=== PATIENT | male | born 1940 | race African-American/Black ===

== ENCOUNTER 2019-12-28 20:58 | Inpatient (IN) | payer MEDICARE, MEDICAID ==
[~2019-12-28] VITALS: Ht 175.3 cm; Wt 98.0 kg
[2019-12-28 21:00] VITALS: BP 178/100
--- NOTE | 2019-12-28 21:00 | NUR ---
ED Nurse Note: Pt brought into ED by [facility] unit 240 from [facility] for c/o increased lethargy. Per EMS, pt has been more lethargic than normal and this was noticed by staff yesterday. Pt is awake and alert, slow to speak but able to answer simple questions. Pt is tachypneic at this time with respirations in the 30's. Pt is on 4L oxygen via NC. Pt is hot to the touch and fever noted upon triage. Productive cough also noted upon triage. Pt connected to vehicle monitor technician, ERMD bedside. Safety measures in place, will continue to monitor.
[2019-12-28] MEDS ORDERED: ACETAMINOPHEN500 M5 ORAL (21:07)
[2019-12-28] MEDS ORDERED: ASPIR 8181 MG ORAL (21:08)
[2019-12-28] MEDS ORDERED: ARTIFICIAL TEAR15 ML BOTH EYES (21:08)
[2019-12-28] MEDS ORDERED: CATAPRES0.1 MG ORAL (21:10)
[2019-12-28] MEDS ORDERED: DIGOXIN0.125 MG/2 ORAL (21:10)
[2019-12-28] MEDS ORDERED: CARDIZEM60 MG ORAL (21:11)
[2019-12-28] MEDS ORDERED: DOCUSATE SODIU100 MG ORAL (21:14)
[2019-12-28] MEDS ORDERED: DULCOLAX10 MG RC (21:14)
[2019-12-28] MEDS ORDERED: Vancomycin 1 GM in NS 275 ML IV ONE (21:15)
[2019-12-28] MEDS ORDERED: Azithromycin 500 MG in D5W 275 ML IVPB ONE (21:15)
[2019-12-28] MEDS ORDERED: cefTRIAXone 2 GM in NS 110 ML IV ONE (21:15)
[2019-12-28] MEDS ORDERED: ISOSORBIDE DINI30 MG ORAL (21:16)
[2019-12-28] MEDS ORDERED: HYDRALAZINE HCL25 M1 ORAL (21:16)
[2019-12-28] MEDS ORDERED: LIPITOR20 MG ORAL (21:17)
[2019-12-28] MEDS ORDERED: MINERAL OIL EN133 ML RC (21:18)
[2019-12-28] MEDS ORDERED: MULTIVITAMINS1 EAC8 ORAL (21:19)
[2019-12-28] MEDS ORDERED: PRO-STAT LIQUID30 ML ORAL (21:20)
[2019-12-28] MEDS ORDERED: PERIDEX15 ML MM (21:20)
[2019-12-28] MEDS ORDERED: SORBITOL2000 ML ORAL (21:21)
--- NOTE | 2019-12-28 21:30 | NUR ---
ED Nurse Note: IV line established, blood drawn and sent to lab. Urine also obtained and sent to lab.
[2019-12-28 21:45] VITALS: BP 160/88
--- NOTE | 2019-12-28 21:45 | NUR ---
ED Nurse Note: Rectal temp of 104.1 noted, ERMD aware. Will carry out order for tylenol.
[2019-12-28] MEDS ORDERED: Acetaminophen 650 MG SUPP RECTAL ONE (22:00)
--- NOTE | 2019-12-28 22:09 | Emergency Room Report ---
History of Present Illness General Chief Complaint: Altered Mental Status Source: Patient, EMS Present Illness HPI Patient presents from [facility] facility with a cough and shortness of breath. He has a history of COPD and pneumonia in the past. He denies any chest pain but says he is short of breath. He was transported by S. The patient is on oxygen at this time. He denies having cough but is heard to be coughing. He has had some chills according to him. There is no documented fever. The patient's had admissions in the past for pneumonia and COPD. Unknown of his COVID-19 status at this time. No chills, sore throat, chest pain, palpitations, nausea, vomiting, diarrhea, dysuria, abdominal pain, joint pain, rashes, visual changes, dizziness, headache. Allergies: Coded Allergies: No Known Allergies (Unverified , 12/28/19) COVID-19 Screening Contact w/high risk pt: Yes Recent Travel to affected area: No Experienced COVID-19 symptoms?: Yes COVID-19 symptoms experienced: Fever (T>100.4F or >38C), Cough COVID-19 Testing performed CO FOUNDER AND DIRECTOR: No COVID-19 Screening: PUI COVID-19 Patient History Past Medical History: see triage record Social History: Denies: smoking - prior Social History Narrative [facility] Reviewed Nursing Documentation: PMH: Agreed; PSxH: Agreed Nursing Documentation-PMH Hx Hypertension: Yes - HDL, dysphagia Hx Cerebrovascular Accident: Yes - Rt side weakness Review of Systems All Other Systems: negative except mentioned in HPI Physical Exam Vital Signs Date Time Temp Pulse Resp B/P (MAP) Pulse Ox O2 Delivery O2 Flow Rate FiO2 12/28/19 20:59 90 40 178/100 (126) 97 Nasal Cannula 4.0 Sp02 EP Interpretation: reviewed, abnormal - Interpreted as low by me General Appearance: alert, Chronically Ill Eyes: bilateral eye normal inspection, bilateral eye PERRL, bilateral eye other - Bilaterally ENT: moist mucus membranes Neck: supple Respiratory: no respiratory distress, rhonchi, other - Tachypnea Cardiovascular #1: regular rate, rhythm, no edema Cardiovascular #2: 2+ radial (L) Gastrointestinal: non tender, soft Genitourinary: no CVA tenderness Musculoskeletal: decreased range of motion - Right hand, swelling - Bilateral feet, other - Right hand contractures Neurologic: alert, motor weakness, Babinski - Right hemiparesis hemiparesis bilateral Psychiatric: mood/affect normal Skin: no rash Medical Decision Making Diagnostic Impression: Primary Impression: Right lower lobe pneumonia Qualified Codes: J18.9 - Pneumonia, unspecified organism Additional Impressions: Suspected COVID-19 virus infection Hypoxia Renal insufficiency NSTEMI (non-ST elevated myocardial infarction) ER Course Patient presents with fever, cough and tachypnea. Differential includes COVID- 19, pneumonia, exacerbation COPD, acute myocardial infarction amongst others. Evaluation with EKG, chest x-ray and labs including septic work-up. Treatment with IV hydration, oxygen. Respiratory isolation instituted. EKG with LVH and QT prolongation. Chest x-ray right lower lobe infiltrate. White count normal. Left shift. Renal insufficiency. Elevated CRP, ferritin, LDH. Normal lactic acid Based on chest x-ray antibiotics (triple) begun. Tylenol administered for fever. Chest x-ray more consistent with lobar pneumonia. However concern over elevated ferritin, CRP and LDH which suggest possible COVID-19. Patient improved on oxygen and with IV hydration. Discussed with Dr. eMjia, [place], states does not want patient transferred. Contact Dr. Gutierrez and Dr. Tao for admission. Troponin not discussed with ER physician. Patient improved and admitted to the hospital. Laboratory Tests Test 12/28/19 21:25 12/28/19 21:40 White Blood Count 6.3 K/UL (4.8-10.8) Red Blood Count 4.26 M/UL (4.70-6.10) L Hemoglobin 13.6 G/DL (14.2-18.0) L Hematocrit 42.1 % (42.0-52.0) Mean Corpuscular Volume 99 FL (80-99) Mean Corpuscular Hemoglobin 31.9 PG (27.0-31.0) H Mean Corpuscular Hemoglobin Concent 32.3 G/DL (32.0-36.0) Red Cell Distribution Width 12.6 % (11.6-14.8) Platelet Count 124 K/UL (150-450) L Mean Platelet Volume 7.8 FL (6.5-10.1) Neutrophils (%) (Auto) 81.5 % (45.0-75.0) H Lymphocytes (%) (Auto) 10.3 % (20.0-45.0) L Monocytes (%) (Auto) 7.7 % (1.0-10.0) Eosinophils (%) (Auto) 0.0 % (0.0-3.0) Basophils (%) (Auto) 0.6 % (0.0-2.0) Prothrombin Time 12.7 SEC (9.30-11.50) H Prothrombin Time INR 1.2 (0.9-1.1) H Activated Partial Thromboplast Time 36 SEC (23-33) H D-Dimer 2.57 mg/L FEU (0.00-0.49) H Sodium Level 146 MMOL/L (136-145) H Potassium Level 3.9 MMOL/L (3.5-5.1) Chloride Level 108 MMOL/L (98-107) H Carbon Dioxide Level 25 MMOL/L (21-32) Anion Gap 13 mmol/L (5-15) Blood Urea Nitrogen 48 mg/dL (7-18) H Creatinine 2.0 MG/DL (0.55-1.30) H Estimated Glomerular Filtration Rate 39.1 mL/min (>60) Glucose Level 100 MG/DL (74-106) Lactic Acid Level 0.90 mmol/L (0.4-2.0) Calcium Level 8.6 MG/DL (8.5-10.1) Magnesium Level 2.2 MG/DL (1.8-2.4) Ferritin 1398 NG/ML (8-388) H Total Bilirubin 1.9 MG/DL (0.2-1.0) H Direct Bilirubin 1.1 MG/DL (0.0-0.3) H Aspartate Amino Transferase (AST) 60 U/L (15-37) H Alanine Aminotransferase (ALT) 50 U/L (12-78) Alkaline Phosphatase 106 U/L (46-116) Lactate Dehydrogenase 458 U/L (81-234) H Total Creatine Kinase 139 U/L (26-308) Troponin I 0.151 ng/mL (0.000-0.056) C-Reactive Protein, Quantitative 27.8 mg/dL (0.00-0.90) H Pro-B-Type Natriuretic Peptide 4086 pg/mL (0-125) H Total Protein 7.5 G/DL (6.4-8.2) Albumin 2.8 G/DL (3.4-5.0) L Globulin 4.7 g/dL Albumin/Globulin Ratio 0.6 (1.0-2.7) L Lipase 256 U/L (73-393) Urine Color Yellow Urine Appearance Cloudy Urine pH 5 (4.5-8.0) Urine Specific [place] 1.015 (1.005-1.035) Urine Protein 3+ (NEGATIVE) H Urine Glucose (UA) Negative (NEGATIVE) Urine Ketones Negative (NEGATIVE) Urine Blood 3+ (NEGATIVE) H Urine Nitrite Negative (NEGATIVE) Urine Bilirubin Negative (NEGATIVE) Urine Urobilinogen 1 MG/DL (0.0-1.0) H Urine Leukocyte Esterase 2+ (NEGATIVE) H Urine RBC 40-60 /HPF (0 - 0) H Urine WBC 30-40 /HPF (0 - 0) H Urine Squamous Epithelial Cells Few /LPF (NONE/OCC) Urine Amorphous Sediment Many /LPF (NONE) H Urine Bacteria Many /HPF (NONE) H EKG Diagnostic Results Rate: normal Rhythm: NSR ST Segments: no acute changes - LVH and QT prolongation Rhythm Strip Diag. Results EP Interpretation: yes Rhythm: NSR, no PVC's, no ectopy Chest X-Ray Diagnostic Results Chest X-Ray Diagnostic Results : Chest X-Ray Ordered: Yes # of Views/Limited/Complete: 1 View Indication: Shortness of Breath EP Interpretation: Yes Interpretation: no effusion, no pneumothorax, other - CXR Impression: Other Electronically Signed by: Electronically signed by Andre Torres MD Last Vital Signs Date Time Temp Pulse Resp B/P (MAP) Pulse Ox O2 Delivery O2 Flow Rate FiO2 12/29/19 00:30 102.1 78 27 146/74 99 Nasal Cannula 4.0 Status: improved Disposition: ADMITTED INPATIENT Condition: Serious Referrals: Davon Tao DO (PCP) Andre Torres MD December 28, 2019 22:09
--- NOTE | 2019-12-28 22:45 | Diagnostic Imaging Report ---
EXAM: XR Chest, 1 View CLINICAL HISTORY: COUGH TECHNIQUE: Frontal view of the chest. COMPARISON: No relevant prior studies available. FINDINGS: Lungs: There is consolidation involving the right lower lung consistent with pneumonia. Linear atelectasis is identified at the left lung base. Pleural space: Unremarkable. No pneumothorax. Heart: Cardiac size is enlarged. Mediastinum: Unremarkable. Bones/joints: There are degenerative arthritic changes of the right shoulder joint. Vasculature: The thoracic aorta is calcified and ectatic. IMPRESSION: 1. Right lower lung pneumonia. 2. Cardiomegaly.
[2019-12-28 22:46] LABS: APPEARANCE,URINE CLOUDY; BILIRUBIN, URINE NEGATIVE (NEGATIVE); GLUCOSE, URINE (UA) NEGATIVE (NEGATIVE); KETONES,URINE NEGATIVE (NEGATIVE); LEUKOCYTE ESTERASE ,URINE 2+ (NEGATIVE); NITRITE,URINE NEGATIVE (NEGATIVE); PH,URINE 5 (4.5-8.0); PROTEIN,URINE 3+ (NEGATIVE); UROBILINOGEN,URINE 1 MG/DL (0.0-1.0)
[2019-12-28 22:49] LABS: INR 1.2 (0.9-1.1)
[2019-12-28 22:50] LABS: BASOPHILS % (AUTO) 0.6 % (0.0-2.0); HEMATOCRIT 42.1 % (42.0-52.0); HEMOGLOBIN 13.6 G/DL (14.2-18.0); LYMPHOCYTES % (AUTO) 10.3 % (20.0-45.0); MEAN CORPUSCULAR VOLUME 99 FL (80-99); MONOCYTES % (AUTO) 7.7 % (1.0-10.0); NEUTROPHILS % (AUTO) 81.5 % (45.0-75.0); PLATELET COUNT 124 K/UL (150-450); RED BLOOD COUNT 4.26 M/UL (4.70-6.10); RED CELL DISTRIBUTION WIDTH 12.6 % (11.6-14.8); WHITE BLOOD COUNT 6.3 K/UL (4.8-10.8)
[2019-12-28 22:56] LABS: ANION GAP 13 mmol/L (5-15); BLOOD UREA NITROGEN 48 mg/dL (7-18); CALCIUM 8.6 MG/DL (8.5-10.1); CARBON DIOXIDE 25 MMOL/L (21-32); CHLORIDE 108 MMOL/L (98-107); POTASSIUM 3.9 MMOL/L (3.5-5.1); SODIUM 146 MMOL/L (136-145)
--- NOTE | 2019-12-28 23:00 | NUR ---
ED Nurse Note: Pt is sleeping in bed at this time. No acute distress. Pt respirations have decreased to 24.
[2019-12-28 23:05] LABS: COLOR,URINE YELLOW
[2019-12-28 23:19] LABS: ALANINE AMINOTRANSFERASE 50 U/L (12-78); ALBUMIN 2.8 G/DL (3.4-5.0); ALBUMIN/GLOBULIN RATIO 0.6 (1.0-2.7); ALKALINE PHOSPHATASE 106 U/L (46-116); ASPARTATE AMINO TRANSFERASE 60 U/L (15-37); BILIRUBIN,TOTAL 1.9 MG/DL (0.2-1.0); CREATINE KINASE 139 U/L (26-308)
[2019-12-28 23:23] LABS: BILIRUBIN,DIRECT 1.1 MG/DL (0.0-0.3)
[2019-12-29] VITALS (7 sets, daily range): BP systolic 149–157; BP diastolic 68–86
--- NOTE | 2019-12-29 | NUR ---
ED Nurse Note: Report given to MALACHI Bishop.
--- NOTE | 2019-12-29 00:30 | NUR ---
ED Nurse Note: Pt is stable for transport to tele unit at this time per ERMD. Pt is awake and alert, NAD. Pt remains on 4L oxygen via NC. Endorsed plan to receiving RN that azithromycin is infusing via IV. IV is patent and intact. Pt has no belongings. Pt taken to unit via gurney, connected to surveillance system monitor by levi and RN. Pt vitals are stable.
--- NOTE | 2019-12-29 00:45 | NUR ---
NURSE NOTES: Received report from MALACHI Levi. Patient transferred from E. via [facility] to room 216-2 on Covid precaution. Patient is awake, alert and oriented x 2. Oriented to room and telemetry unit. On nasal cannula @ 4Lpm with no shortness or difficulty of breathing reported, saturating 94%. On low sodium diet. radiation monitor is in placed, shows Atrial fibrillation. Patient is bedbound. IV site is on left forearm g-20 saline lock that is patent and intact. Safety measures are in placed, bed in lowest and lock position. Side rails up x 2. Will continue plan of care,
[2019-12-29] MEDS: D5 1/2NS w/KCl 20mEq 1,000 ML IV SCH ×2 (03:35→14:24)
[2019-12-29] MEDS ORDERED: Fleet's Mineral Oil Enema RECTAL PRN (05:58)
[2019-12-29] MEDS ORDERED: Sorbitol 2000ml Irrigation IRRIG SCH (06:00)
[2019-12-29] MEDS: HydrALAZINE 25mg tab ORAL SCH ×3 (06:23→23:28)
[2019-12-29] MEDS ORDERED: Albuterol 90mcg Inhaler 8gm INH PRN (07:30)
--- NOTE | 2019-12-29 07:35 | Consultation ---
History of Present Illness General Date patient seen: December 29, 2019 Time patient seen: 06:30 Chief Complaint: Altered Mental Status Referring physician: Dr Gutierrez Reason for Consultation: PNA Present Illness HPI 79 years old male, [facility], with past medical history of COPD, hypertension, CVA with right-sided hemiparesis, prior pneumonia , DNR/DNI status, was sent for evaluation due to shortness of breath, cough and chills. No fever was reported. Upon evaluation patient was febrile with temperature 102 and hypoxic requiring high flow of supplemental oxygen. Blood pressure was elevated 178/100, and patient was tachypneic with respiratory rate of 40. Laboratory work-up revealed no leukocytosis, stable hemoglobin and hematocrit. Platelet count 124. Troponin elevated 0.151. pro BNP 4086. EKG revealed sinus rhythm, no acute ischemic changes. Lactic acid 0.9. BUN 42, creatinine 2.0. Sodium 146. Total bilirubin 1.9, direct bilirubin 1.1. AST 60. Urinalysis revealed pyuria, many bacteria, +3 protein, +2 leukocyte esterase. Noted elevated CRP 27.8 , LDH 458, ferritin 1398, d-dimer 2.57 , thus all inflammatory markers elevated suggestive of possible cytokine storm. Patient was tested for COVID-19. Chest x-ray demonstrated right lower lung pneumonia. Cardiomegaly. In emergency department patient pancultured ,started on empiric antibiotics, received analgesic for fever. Patient subsequently admitted to telemetry floor to isolation room for further management. Allergies: Coded Allergies: No Known Allergies (Unverified , 12/28/19) Medication History Scheduled Acetaminophen (Acetaminophen), 325 MG ORAL Q4H, (Reported) Amino Acids/Protein Hydrolys (Pro-Stat Liquid), 30 ML ORAL TWICE A DAY, ( Reported) Aspirin* (Aspir 81*), 81 MG ORAL DAILY, (Reported) Atorvastatin Calcium* (Lipitor*), 20 MG ORAL BEDTIME, (Reported) Clonidine Hcl* (Catapres*), 0.1 MG ORAL EVERY 4 HOURS, (Reported) Digoxin* (Digoxin*), 0.125 MG ORAL DAILY, (Reported) Diltiazem Hcl* (Cardizem*), 180 MG ORAL DAILY, (Reported) Docusate Sodium* (Docusate Sodium*), 250 MG ORAL TWICE A DAY, (Reported) Hydralazine Hcl* (Hydralazine Hcl*), 25 MG ORAL EVERY 8 HOURS, (Reported) Isosorbide Dinitrate* (Isordil*), 30 MG ORAL EVERY 6 HOURS, (Reported) Multivitamin With Minerals (Multivitamins With Minerals*), 1 TAB ORAL DAILY, ( Reported) Sorbitol Solution (Sorbitol), 30 ML ORAL EVERY 6 HOURS, (Reported) Miscellaneous Medications Bisacodyl (Dulcolax), 10 MG RC, (Reported) Chlorhexidine Gluconate (Peridex), 10 ML MM, (Reported) Dextran 70/Hypromellose (Artificial Tears Eye Drops*), 1 DROP BOTH EYES, ( Reported) Mineral Oil (Mineral Oil Enema), 133 ML RC, (Reported) Patient History History Provided By: Patient, Medical Record Healthcare decision maker Resuscitation status Advanced Directive on File Review of Systems Constitutional: Reports: weakness Respiratory: Reports: see HPI, cough Cardiovascular: Reports: no symptoms Musculoskeletal: Reports: joint pain Neurological: Reports: other - hx of CVA ROS Narrative ROS limited due to patient medical conditiion Physical Exam General Appearance: no apparent distress, other - awake, somewhat responsive AA male in NAD Lines, tubes and drains: peripheral HEENT: normocephalic, atraumatic, anicteric, mucous membranes moist Neck: supple Respiratory/Chest: no accessory muscle use, rhonchi - left - few, rhonchi - right - diffused Cardiovascular/Chest: normal rate Abdomen: normal bowel sounds, non tender, soft Extremities: no calf tenderness, no edema Neurologic: abnormal gait, alert - somewhat responsive, , other - R side weakness Musculoskeletal: atrophy - BLE Last 24 Hour Vital Signs Date Time Temp Pulse Resp B/P (MAP) Pulse Ox O2 Delivery O2 Flow Rate FiO2 12/29/19 06:23 158/85 12/29/19 06:23 158/88 12/29/19 04:00 99.1 74 21 151/82 (105) 95 12/29/19 00:45 99.5 71 22 157/86 (109) 94 12/29/19 00:30 102.1 78 27 146/74 99 Nasal Cannula 4.0 12/29/19 00:15 Nasal Cannula 4.0 12/29/19 00:00 102.1 75 25 151/68 100 Nasal Cannula 4.0 12/28/19 22:22 102.1 12/28/19 21:45 104.1 80 32 160/88 97 Nasal Cannula 4.0 12/28/19 21:00 90 40 Nasal Cannula 4.0 12/28/19 21:00 102.0 90 40 178/100 97 Nasal Cannula 4.0 12/28/19 20:59 90 40 178/100 (126) 97 Nasal Cannula 4.0 Intake and Output 12/28/19 12/29/19 19:00 07:00 Intake Total 0 ml Output Total 100 ml Balance -100 ml Intake Oral 0 ml Output Urine Total 100 ml Laboratory Tests Test 12/28/19 21:25 12/28/19 21:40 White Blood Count 6.3 K/UL (4.8-10.8) Red Blood Count 4.26 M/UL (4.70-6.10) L Hemoglobin 13.6 G/DL (14.2-18.0) L Hematocrit 42.1 % (42.0-52.0) Mean Corpuscular Volume 99 FL (80-99) Mean Corpuscular Hemoglobin 31.9 PG (27.0-31.0) H Mean Corpuscular Hemoglobin Concent 32.3 G/DL (32.0-36.0) Red Cell Distribution Width 12.6 % (11.6-14.8) Platelet Count 124 K/UL (150-450) L Mean Platelet Volume 7.8 FL (6.5-10.1) Neutrophils (%) (Auto) 81.5 % (45.0-75.0) H Lymphocytes (%) (Auto) 10.3 % (20.0-45.0) L Monocytes (%) (Auto) 7.7 % (1.0-10.0) Eosinophils (%) (Auto) 0.0 % (0.0-3.0) Basophils (%) (Auto) 0.6 % (0.0-2.0) Prothrombin Time 12.7 SEC (9.30-11.50) H Prothromb Time International Ratio 1.2 (0.9-1.1) H Activated Partial Thromboplast Time 36 SEC (23-33) H D-Dimer 2.57 mg/L FEU (0.00-0.49) H Sodium Level 146 MMOL/L (136-145) H Potassium Level 3.9 MMOL/L (3.5-5.1) Chloride Level 108 MMOL/L (98-107) H Carbon Dioxide Level 25 MMOL/L (21-32) Anion Gap 13 mmol/L (5-15) Blood Urea Nitrogen 48 mg/dL (7-18) H Creatinine 2.0 MG/DL (0.55-1.30) H Estimat Glomerular Filtration Rate 39.1 mL/min (>60) Glucose Level 100 MG/DL (74-106) Lactic Acid Level 0.90 mmol/L (0.4-2.0) Calcium Level 8.6 MG/DL (8.5-10.1) Magnesium Level 2.2 MG/DL (1.8-2.4) Ferritin 1398 NG/ML (8-388) H Total Bilirubin 1.9 MG/DL (0.2-1.0) H Direct Bilirubin 1.1 MG/DL (0.0-0.3) H Aspartate Amino Transf (AST/SGOT) 60 U/L (15-37) H Alanine Aminotransferase (ALT/SGPT) 50 U/L (12-78) Alkaline Phosphatase 106 U/L (46-116) Lactate Dehydrogenase 458 U/L (81-234) H Total Creatine Kinase 139 U/L (26-308) Troponin I 0.151 ng/mL (0.000-0.056) C-Reactive Protein, Quantitative 27.8 mg/dL (0.00-0.90) H Pro-B-Type Natriuretic Peptide 4086 pg/mL (0-125) H Total Protein 7.5 G/DL (6.4-8.2) Albumin 2.8 G/DL (3.4-5.0) L Globulin 4.7 g/dL Albumin/Globulin Ratio 0.6 (1.0-2.7) L Lipase 256 U/L (73-393) Urine Color Yellow Urine Appearance Cloudy Urine pH 5 (4.5-8.0) Urine Specific [place] 1.015 (1.005-1.035) Urine Protein 3+ (NEGATIVE) H Urine Glucose (UA) Negative (NEGATIVE) Urine Ketones Negative (NEGATIVE) Urine Blood 3+ (NEGATIVE) H Urine Nitrite Negative (NEGATIVE) Urine Bilirubin Negative (NEGATIVE) Urine Urobilinogen 1 MG/DL (0.0-1.0) H Urine Leukocyte Esterase 2+ (NEGATIVE) H Urine RBC 40-60 /HPF (0 - 0) H Urine WBC 30-40 /HPF (0 - 0) H Urine Squamous Epithelial Cells Few /LPF (NONE/OCC) Urine Amorphous Sediment Many /LPF (NONE) H Urine Bacteria Many /HPF (NONE) H Height (Feet): 5 Height (Inches): 9.00 Weight (Pounds): 160 Medications Current Medications Medications (Trade) Dose Ordered Sig/Grayson Route PRN Reason Start Time Stop Time Status Last Admin Dose Admin Acetaminophen (Tylenol) 325 mg Q4H ORAL 12/29/19 00:15 01/28/20 00:14 UNV Artificial Tears (Akwa-Tears) 1 drop BID BOTH EYES 12/29/19 09:00 01/28/20 08:59 Aspirin (Ecotrin) 81 mg DAILY ORAL 12/29/19 09:00 02/12/20 08:59 Atorvastatin Calcium (Lipitor) 20 mg BEDTIME ORAL 12/29/19 21:00 03/28/20 20:59 Azithromycin 500 mg/Dextrose 275 ml @ 275 mls/hr Q24H IV 12/30/19 00:00 01/05/20 00:59 Bisacodyl (Dulcolax) 10 mg PRN RECTAL 12/29/19 00:15 03/28/20 00:14 Cefepime HCl 1 gm/ Dextrose 50 ml @ 100 mls/hr EVERY 12 HOURS IVPB 12/29/19 09:00 01/05/20 08:59 Clonidine HCl (Catapres Tab) 0.1 mg EVERY 4 HOURS ORAL 12/29/19 01:00 03/28/20 00:59 UNV Dextrose (Dextrose 50%) 25 ml Q30M PRN IV Hypoglycemia 12/29/19 00:15 03/28/20 00:14 Dextrose (Dextrose 50%) 50 ml Q30M PRN IV Hypoglycemia 12/29/19 00:15 03/28/20 00:14 Dextrose/ Electrolytes 1,000 ml @ 75 mls/hr [id number] IV 12/29/19 01:00 01/28/20 00:59 12/29/19 03:35 Digoxin (Lanoxin) 0.125 mg DAILY ORAL 12/29/19 09:00 03/28/20 08:59 Diltiazem HCl (Cardizem CD) 180 mg DAILY ORAL 12/29/19 09:00 01/28/20 08:59 Docusate Sodium (Colace) 250 mg TWICE A DAY ORAL 12/29/19 09:00 01/28/20 08:59 Enoxaparin Sodium (Lovenox) 30 mg DAILY SUBQ 12/29/19 09:00 03/28/20 08:59 Hydralazine HCl (Apresoline) 25 mg EVERY 8 HOURS ORAL 12/29/19 06:00 03/28/20 05:59 12/29/19 06:23 Isosorbide Dinitrate (Isordil) 10 mg Q6HR ORAL 12/29/19 06:00 01/28/20 05:59 12/29/19 06:23 Mineral Oil (Fleet's Mineral Oil Enema) 133 ml DAILYPRN PRN RECTAL CONSTIPATION 12/29/19 05:58 01/28/20 05:57 Multivitamins Therapeutic (Therapeutic Multivitamin) 1 ea DAILY ORAL 12/29/19 09:00 01/28/20 08:59 Sorbitol (sorbitoL) 30 ml EVERY 6 HOURS ORAL 12/29/19 12:00 01/28/20 11:59 Assessment/Plan Assessment/Plan: ASSESSMENT sepsis acute hypoxemic resp failure ( requiring high flow of O2 and manifested with tachypnea) PNA suspected CoVID 19 nfection elevated troponin, possible NSTEMI possible CHF HTN urgency, on admission ESTHER vs CKD transaminitis PLAN OF CARE tele isolation 02 titrate to keep sat abvoe 92% MDI Proventil prn until known CoVID result empiric abx SCX if able fup with CXR DVT prophylaxis fup with SARS-CoV2 by PCR noted elevated CRP, D dimer, ferritin, LDH, trend further repeat troponin ECHO Venous Duplex BLE resume home emds , including ASA and sttin continue Hydralazine, Digoxin and Isordil for CHF, monitor volumes hydration, monitor e/lytes, renal parameters, avoid nephrotoxics BP management with current regimen and optimize further as needed fup with LFT case discussed and evaluated by supervising physician Kaitlyn Jeronimo NP December 29, 2019 07:35
--- NOTE | 2019-12-29 07:54 | NUR ---
HAND-OFF: Report given to MALACHI Madrid. Patient is asleep, on stable condition. Plan of care endorsed.
--- NOTE | 2019-12-29 08:05 | NUR ---
NURSE NOTES: Received report from MALACHI Allison. Pt awake, A/O x2, no s/sx of acute distress. Pt on 4L NC, breathing even, with barking cough observed. Pt denies any pain. IV site on L FA patent and asymptomatic, running IVF as ordered. Bed on lowest position, call light within reach. Will continue plan of care.
--- NOTE | 2019-12-29 08:30 | NUR ---
NURSE NOTES: Asked LIZBETH Jeronimo if it is okay to administer Lovenox because of low platelet count of 124. Per LIZBETH Jeronimo, it is okay to administer.
[2019-12-29] MEDS ORDERED: Enoxaparin 30mg Inj SUBQ SCH (09:00)
[2019-12-29] MEDS: Docusate 250mg cap ORAL SCH ×2 (09:19→17:35)
[2019-12-29] MEDS: dilTIAZem HCl CD 180mg cap ORAL SCH (09:19)
[2019-12-29] MEDS: Digoxin 0.125mg tab ORAL SCH (09:19)
[2019-12-29] MEDS: Multivitamin w/Minerals tab ORAL SCH (09:19)
[2019-12-29] MEDS: Aspirin EC 81mg tab ORAL SCH (09:19)
--- NOTE | 2019-12-29 11:00 | Consultation ---
Consult Note Consult Note I am asked to evaluate the the patient at the request of Dr. Gutierrez for renal failure Patient presents from [facility] facility with a cough and shortness of breath. He has a history of COPD and pneumonia in the past. He denies any chest pain but says he is short of breath. He was transported by S. The patient is on oxygen at this time. He denies having cough but is heard to be coughing. He has had some chills according to him. There is no documented fever. The patient's had admissions in the past for pneumonia and COPD. Unknown of his COVID-19 status at this time. No chills, sore throat, chest pain, palpitations, nausea, vomiting, diarrhea, dysuria, abdominal pain, joint pain, rashes, visual changes, dizziness, headache. 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: No COVID-19 Screening: PUI COVID-19 Hx Hypertension: Yes - HDL, dysphagia Hx Cerebrovascular Accident: Yes - Rt side weakness Patient seen, examined Data reviewed No prior hospitalization here at [facility] Assessment/Plan Acute renal failure most likely superimposed on underlying chronic kidney disease Acute hypoxic respiratory failure, pneumonia, suspected COVID-19 Sepsis Elevated troponin Suspected congestive heart failure Hypertension, hypertension urgency on admission Evidence of UTI Suggestions: Slow hydration Watch for CHF symptoms Pulmonary toilet Antibiotics Urine studies Keep the blood pressure and blood sugar in check Monitor renal parameters Per orders Per consultants Daon Harry MD December 29, 2019 11:00
[2019-12-29 11:17] LABS: BASOPHILS % (AUTO) 0.4 % (0.0-2.0); HEMATOCRIT 42.6 % (42.0-52.0); HEMOGLOBIN 14.8 G/DL (14.2-18.0); LYMPHOCYTES % (AUTO) 9.2 % (20.0-45.0); MEAN CORPUSCULAR VOLUME 92 FL (80-99); MONOCYTES % (AUTO) 6.6 % (1.0-10.0); NEUTROPHILS % (AUTO) 83.8 % (45.0-75.0); PLATELET COUNT 121 K/UL (150-450); RED BLOOD COUNT 4.62 M/UL (4.70-6.10); RED CELL DISTRIBUTION WIDTH 11.3 % (11.6-14.8); WHITE BLOOD COUNT 5.7 K/UL (4.8-10.8)
[2019-12-29 11:40] LABS: ALANINE AMINOTRANSFERASE 59 U/L (12-78); ALBUMIN 2.6 G/DL (3.4-5.0); ALBUMIN/GLOBULIN RATIO 0.6 (1.0-2.7); ALKALINE PHOSPHATASE 108 U/L (46-116); ANION GAP 12 mmol/L (5-15); ASPARTATE AMINO TRANSFERASE 80 U/L (15-37); BILIRUBIN,TOTAL 1.8 MG/DL (0.2-1.0); BLOOD UREA NITROGEN 46 mg/dL (7-18); CALCIUM 8.6 MG/DL (8.5-10.1); CARBON DIOXIDE 25 MMOL/L (21-32); CHLORIDE 110 MMOL/L (98-107); CREATININE 1.9 MG/DL (0.55-1.30); PHOSPHORUS 3.3 MG/DL (2.5-4.9); POTASSIUM 3.7 MMOL/L (3.5-5.1); SODIUM 147 MMOL/L (136-145)
[2019-12-29 11:41] LABS: BILIRUBIN,DIRECT 1.1 MG/DL (0.0-0.3)
--- NOTE | 2019-12-29 12:01 | NUR ---
NURSE NOTES: Reported troponin levels and BNP to Dr Del Rosario.
[2019-12-29] MEDS: Sorbitol Solution UD 30ml ORAL SCH ×2 (12:21→17:35)
--- NOTE | 2019-12-29 13:19 | History & Physical ---
History and Physical History & Physicial Scooter Gutierrez MD December 29, 2019 13:19
--- NOTE | 2019-12-29 14:08 | Cardiac Electrophysiology PN ---
Subjective Subjective [id number] Objective Last 24 Hour Vital Signs Date Time Temp Pulse Resp B/P (MAP) Pulse Ox O2 Delivery O2 Flow Rate FiO2 12/29/19 12:21 149/77 12/29/19 12:00 98.8 69 20 149/77 (101) 95 12/29/19 11:24 71 12/29/19 09:19 66 12/29/19 09:19 66 155/80 12/29/19 09:00 Nasal Cannula 4.0 12/29/19 08:00 98.9 66 22 155/80 (105) 94 12/29/19 07:55 74 12/29/19 06:23 158/85 12/29/19 06:23 158/88 12/29/19 04:00 99.1 74 21 151/82 (105) 95 12/29/19 00:45 99.5 71 22 157/86 (109) 94 12/29/19 00:30 102.1 78 27 146/74 99 Nasal Cannula 4.0 12/29/19 00:15 Nasal Cannula 4.0 12/29/19 00:00 102.1 75 25 151/68 100 Nasal Cannula 4.0 12/28/19 22:22 102.1 12/28/19 21:45 104.1 80 32 160/88 97 Nasal Cannula 4.0 12/28/19 21:00 90 40 Nasal Cannula 4.0 12/28/19 21:00 102.0 90 40 178/100 97 Nasal Cannula 4.0 12/28/19 20:59 90 40 178/100 (126) 97 Nasal Cannula 4.0 Intake and Output 12/28/19 12/29/19 19:00 07:00 Intake Total 0 ml Output Total 100 ml Balance -100 ml Intake Oral 0 ml Output Urine Total 100 ml Laboratory Tests Test 12/28/19 21:25 12/28/19 21:40 12/29/19 10:35 12/29/19 11:30 White Blood Count 6.3 K/UL (4.8-10.8) 5.7 K/UL (4.8-10.8) Red Blood Count 4.26 M/UL (4.70-6.10) L 4.62 M/UL (4.70-6.10) L Hemoglobin 13.6 G/DL (14.2-18.0) L 14.8 G/DL (14.2-18.0) Hematocrit 42.1 % (42.0-52.0) 42.6 % (42.0-52.0) Mean Corpuscular Volume 99 FL (80-99) 92 FL (80-99) Mean Corpuscular Hemoglobin 31.9 PG (27.0-31.0) H 32.0 PG (27.0-31.0) H Mean Corpuscular Hemoglobin Concent 32.3 G/DL (32.0-36.0) 34.7 G/DL (32.0-36.0) Red Cell Distribution Width 12.6 % (11.6-14.8) 11.3 % (11.6-14.8) L Platelet Count 124 K/UL (150-450) L 121 K/UL (150-450) L Mean Platelet Volume 7.8 FL (6.5-10.1) 6.3 FL (6.5-10.1) L Neutrophils (%) (Auto) 81.5 % (45.0-75.0) H 83.8 % (45.0-75.0) H Lymphocytes (%) (Auto) 10.3 % (20.0-45.0) L 9.2 % (20.0-45.0) L Monocytes (%) (Auto) 7.7 % (1.0-10.0) 6.6 % (1.0-10.0) Eosinophils (%) (Auto) 0.0 % (0.0-3.0) 0.0 % (0.0-3.0) Basophils (%) (Auto) 0.6 % (0.0-2.0) 0.4 % (0.0-2.0) Prothrombin Time 12.7 SEC (9.30-11.50) H Prothromb Time International Ratio 1.2 (0.9-1.1) H Activated Partial Thromboplast Time 36 SEC (23-33) H D-Dimer 2.57 mg/L FEU (0.00-0.49) H Sodium Level 146 MMOL/L (136-145) H 147 MMOL/L (136-145) H Potassium Level 3.9 MMOL/L (3.5-5.1) 3.7 MMOL/L (3.5-5.1) Chloride Level 108 MMOL/L (98-107) H 110 MMOL/L (98-107) H Carbon Dioxide Level 25 MMOL/L (21-32) 25 MMOL/L (21-32) Anion Gap 13 mmol/L (5-15) 12 mmol/L (5-15) Blood Urea Nitrogen 48 mg/dL (7-18) H 46 mg/dL (7-18) H Creatinine 2.0 MG/DL (0.55-1.30) H 1.9 MG/DL (0.55-1.30) H Estimat Glomerular Filtration Rate 39.1 mL/min (>60) 41.6 mL/min (>60) Glucose Level 100 MG/DL (74-106) 147 MG/DL (74-106) H Lactic Acid Level 0.90 mmol/L (0.4-2.0) Calcium Level 8.6 MG/DL (8.5-10.1) 8.6 MG/DL (8.5-10.1) Magnesium Level 2.2 MG/DL (1.8-2.4) 2.2 MG/DL (1.8-2.4) Ferritin 1398 NG/ML (8-388) H Total Bilirubin 1.9 MG/DL (0.2-1.0) H 1.8 MG/DL (0.2-1.0) H Direct Bilirubin 1.1 MG/DL (0.0-0.3) H 1.1 MG/DL (0.0-0.3) H Aspartate Amino Transf (AST/SGOT) 60 U/L (15-37) H 80 U/L (15-37) H Alanine Aminotransferase (ALT/SGPT) 50 U/L (12-78) 59 U/L (12-78) Alkaline Phosphatase 106 U/L (46-116) 108 U/L (46-116) Lactate Dehydrogenase 458 U/L (81-234) H Total Creatine Kinase 139 U/L (26-308) Troponin I 0.151 ng/mL (0.000-0.056) 0.180 ng/mL (0.000-0.056) C-Reactive Protein, Quantitative 27.8 mg/dL (0.00-0.90) H Pro-B-Type Natriuretic Peptide 4086 pg/mL (0-125) H Total Protein 7.5 G/DL (6.4-8.2) 7.2 G/DL (6.4-8.2) Albumin 2.8 G/DL (3.4-5.0) L 2.6 G/DL (3.4-5.0) L Globulin 4.7 g/dL 4.6 g/dL Albumin/Globulin Ratio 0.6 (1.0-2.7) L 0.6 (1.0-2.7) L Lipase 256 U/L (73-393) Urine Color Yellow Urine Appearance Cloudy Urine pH 5 (4.5-8.0) Urine Specific [place] 1.015 (1.005-1.035) Urine Protein 3+ (NEGATIVE) H Urine Glucose (UA) Negative (NEGATIVE) Urine Ketones Negative (NEGATIVE) Urine Blood 3+ (NEGATIVE) H Urine Nitrite Negative (NEGATIVE) Urine Bilirubin Negative (NEGATIVE) Urine Urobilinogen 1 MG/DL (0.0-1.0) H Urine Leukocyte Esterase 2+ (NEGATIVE) H Urine RBC 40-60 /HPF (0 - 0) H Urine WBC 30-40 /HPF (0 - 0) H Urine Squamous Epithelial Cells Few /LPF (NONE/OCC) Urine Amorphous Sediment Many /LPF (NONE) H Urine Bacteria Many /HPF (NONE) H Phosphorus Level 3.3 MG/DL (2.5-4.9) Digoxin Level 1.7 NG/ML (0.5-2.0) Urine Random Sodium < 20 mmol/L (20-110) L Microbiology Date/Time Source Procedure Growth Status 12/29/19 06:50 Rectum Received Francois Del Rosario MD December 29, 2019 14:08
--- NOTE | 2019-12-29 19:14 | History and Physical Report ---
DATE OF ADMISSION: 12/28/2019 CHIEF COMPLAINT: Shortness of breath. HISTORY OF PRESENT ILLNESS: This is a 79-year-old gentleman with past medical history significant for pneumonia, COPD, hypertension, dyslipidemia, prior history of stroke with right-sided hemiparesis who presented to the emergency department from nursing facility after he was noted to have shortness of breath. The patient was noted to have coughing and chills. No fever was reported. The patient after initial evaluation in the emergency department was admitted to the hospital with pneumonia, possible COVID-19 infection as well as COPD. PAST MEDICAL HISTORY/PAST SURGICAL HISTORY: Significant for hypertension, prior stroke with right-sided hemiparesis, dyslipidemia, COPD, history is very limited secondary to the patient's status. History mostly taken from the ER chart and group home documentation. MEDICATIONS: At the nursing facility is significant for acetaminophen, ProStat, aspirin, atorvastatin, clonidine, digoxin, diltiazem, docusate, hydralazine, isosorbide dinitrate, multivitamin, sorbitol. ALLERGIES: No known drug allergies. SOCIAL HISTORY: The patient is a group home resident. No smoking, alcohol, or drugs at this time. FAMILY HISTORY: Noncontributory. REVIEW OF SYSTEMS: Mostly as above. Denies any dysuria, frequency, hematuria. Denies any hemoptysis or hematochezia. Complained about shortness of breath and chills. Denies any loss of consciousness. Denies any fall or head trauma. PHYSICAL EXAMINATION: VITAL SIGNS: On admission from the emergency department temperature 98.9, pulse of 66, respirations 22, blood pressure 155/80. GENERAL: The patient awake, responsive, no acute distress. HEENT: Pupils are equal and reactive to light. Extraocular movements intact. Neck was supple. No JVD. LUNGS: Good air entry. No wheezing or rales. Decreased in bases. HEART: S1 and S2. Distant heart sounds. No murmur or gallops. ABDOMEN: Soft, nondistended, nontender. Positive bowel sounds. EXTREMITIES: No cyanosis, clubbing, edema. NEUROLOGIC: Cranial nerves II through XII grossly normal. The patient moving left side upper extremities and lower extremity. Right upper extremity contracture. Right lower extremity is decreased motor. LABORATORY AND DIAGNOSTIC DATA: On admission from the emergency department, WBC of 6.3, hemoglobin 13, hematocrit 42, and platelets is 124. Sodium 146, potassium 3.9, chloride 108, bicarbonate 25, BUN 48, creatinine 2.0, calcium is 8.6, GFR is 39, glucose is 100. Total bilirubin of 1.9, direct bilirubin of 1.1, AST of 60, ALT of 50. Troponin 0.151. ProBNP of 4086. Albumin is 2.8. Lipase is 256. Digoxin level is 1.7. Urine is +3 protein, +3 blood, +2 leukocytes, 40 to 60 rbc's, 30 to 40 wbc's, and many bacteria. PT of 12, INR 1.2, and PTT of 36. D-dimer is 2.57. WBC of 6.3, hemoglobin 13, hematocrit 42, and platelets is 124. Chest x-ray, right lower lobe pneumonia, cardiomegaly. ASSESSMENT: 1. Right lower lobe pneumonia. 2. Acute hypoxemic respiratory failure. 3. COVID-19 ruled out infection. 4. Acute kidney injury on chronic renal insufficiency. 5. Sepsis. 6. Hypertension. 7. Dyslipidemia. 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 9. Admit to telemetry on the COVID-19 isolation. We will follow up with COVID-19 cultures and follow up with urine culture and blood culture. Monitor laboratory, IV hydration, and start the patient on broad-spectrum antibiotic with azithromycin and cefepime. 10. DVT prophylaxis on Lovenox. 11. Code status is DNR. 12. We will follow up with Dr. Del Rosario from Cardiology Electrophysiology, Dr. Calero, Pulmonary Critical Care, Dr. Harry from Nephrology, and Dr. Mendosa from Infectious Diseases consultations. Scooter Gutierrez M.D. DR: Carmen JOB#: [id number] CC:
--- NOTE | 2019-12-29 19:45 | Consultation ---
DATE OF CONSULTATION: 12/29/2019 CARDIOLOGY CONSULTATION CONSULTING PHYSICIAN: Francois Del Rosario MD. REFERRING PHYSICIAN: Scooter Gutierrez MD. REASON FOR CONSULTATION: Accelerated hypertension, shortness of breath, and atrial fibrillation. HISTORY OF PRESENT ILLNESS: The patient is an 79-year-old gentleman with history of hypertension, COPD, and history of CVA in the past was brought by paramedics for cough and shortness of breath. The patient has history of COPD and pneumonia in the past. The patient also had some chills. The patient was admitted and be ruled out for COVID pneumonia. At the time of my evaluation, the patient is comfortable and is on oxygen. REVIEW OF SYSTEMS: Review of systems was negative other than what is mentioned in the history of present illness. PAST MEDICAL HISTORY: As mentioned above. FAMILY HISTORY: Noncontributory. SOCIAL HISTORY: There is no history of smoking or drug use. PHYSICAL EXAMINATION: VITAL SIGNS: Blood pressure is 149/77, pulse 70, respirations 18, and he is afebrile. HEAD AND NECK: Showed no JVD. LUNGS: Coarse rhonchi. CARDIOVASCULAR: Regular S1 and S2 with no gallop. ABDOMEN: Soft. EXTREMITIES: No pitting edema. LABORATORY DATA: Labs show white count 5.7, hemoglobin 14.9, hematocrit 42.6, and platelet count 121. Sodium 147, potassium 3.7, BUN of 43, creatinine 1.9, and glucose of 147. Troponin is 0.15 and 0.18. ASSESSMENT AND PLAN: 1. Non-ST elevation myocardial infarction by elevated troponin. However, this could be due to renal failure, creatinine is 2. The EKG showed atrial fibrillation, occasional PVC. The patient on aspirin and Lipitor, add metoprolol to his medical regimen. The patient is also on Imdur. Repeat EKG and echocardiogram for further evaluation. 2. Atrial fibrillation. The rate is currently controlled on Cardizem CD 180 mg daily. Currently, patient is only on aspirin and low-dose subcutaneous Lovenox. Most likely would need a full anticoagulation that would be discussed with Dr. Gutierrez. The patient is also on digoxin as well. 3. Hypertension, stable on our Cardizem. 4. COPD on albuterol. 5. Occasional PVCs. Echocardiogram shows ejection fraction of 65%. I will repeat troponin in the morning as well. 6. Rule out COVID pneumonia. 7. Renal failure, creatinine of 2. Thank you very much for allowing me to participate in the care of this patient. Please do not hesitate to contact me for any questions regarding my evaluation. Sincerely, Francois Del Rosario M.D. DR: Sofiya JOB#: [id number] CC:
[2019-12-29] MEDS: Azithromycin 500 MG in D5W 275 ML IV SCH (21:00)
[2019-12-29] MEDS: Atorvastatin 20mg tab ORAL SCH (23:29)
[2019-12-30] MEDS ORDERED: Azithromycin 500 MG in D5W 275 ML IV SCH ×2
[2019-12-30] MEDS: Sorbitol Solution UD 30ml ORAL SCH ×4 (01:01→17:13)
[2019-12-30] MEDS: D5 1/2NS w/KCl 20mEq 1,000 ML IV SCH ×2 (03:40→17:13)
[2019-12-30 04:00] VITALS: BP 161/89
[2019-12-30 06:54] LABS: BASOPHILS % (AUTO) 0.7 % (0.0-2.0); EOSINOPHILS % (AUTO) 0.1 % (0.0-3.0); HEMATOCRIT 42.3 % (42.0-52.0); HEMOGLOBIN 14.6 G/DL (14.2-18.0); LYMPHOCYTES % (AUTO) 11.4 % (20.0-45.0); MEAN CORPUSCULAR VOLUME 91 FL (80-99); MONOCYTES % (AUTO) 7.1 % (1.0-10.0); NEUTROPHILS % (AUTO) 80.7 % (45.0-75.0); PLATELET COUNT 121 K/UL (150-450); RED BLOOD COUNT 4.62 M/UL (4.70-6.10); RED CELL DISTRIBUTION WIDTH 11.3 % (11.6-14.8)
[2019-12-30] MEDS: HydrALAZINE 25mg tab ORAL SCH ×3 (07:21→21:44)
[2019-12-30 07:45] LABS: GAMMA GLUTAMYL TRANSPEPTIDASE 77 U/L (5-85); LACTATE DEHYDROGENASE 291 U/L (81-234)
[2019-12-30 08:00] VITALS: BP 165/81
[2019-12-30 08:00] LABS: ALANINE AMINOTRANSFERASE 59 U/L (12-78); ALBUMIN 2.4 G/DL (3.4-5.0); ALBUMIN/GLOBULIN RATIO 0.5 (1.0-2.7); ALKALINE PHOSPHATASE 111 U/L (46-116); ANION GAP 10 mmol/L (5-15); ASPARTATE AMINO TRANSFERASE 72 U/L (15-37); BILIRUBIN,TOTAL 1.5 MG/DL (0.2-1.0); BLOOD UREA NITROGEN 42 mg/dL (7-18); CALCIUM 8.4 MG/DL (8.5-10.1); CARBON DIOXIDE 24 MMOL/L (21-32); CHLORIDE 108 MMOL/L (98-107); CHOLESTEROL 87 MG/DL (< 200); CREATININE 1.7 MG/DL (0.55-1.30); FERRITIN 1821 NG/ML (8-388); HDL CHOLESTEROL 31 MG/DL (40-60); POTASSIUM 3.7 MMOL/L (3.5-5.1); SODIUM 142 MMOL/L (136-145); TRIGLYCERIDES 67 MG/DL (30-150)
[2019-12-30 08:05] LABS: BILIRUBIN,DIRECT 0.9 MG/DL (0.0-0.3)
--- NOTE | 2019-12-30 08:25 | NUR ---
NURSE NOTES: Received report from Sowmya/RN, Patient is asleep, lying semi-langston's, resting comfortably. On 4L nasal canula, no acute distress/SOB noted. Denies pain at this time. IV on Left FA patent, no bleeding or infiltration noted. Bed in low position and locked. Call light within reach. Encouraged to use call light when needed. Will continue plan of care.
[2019-12-30 09:02] LABS: % IRON SATURATION 33 % (15-50); IRON 45 ug/dL (50-175); TOTAL IRON BINDING CAPACITY 138 ug/dL (250-450)
--- NOTE | 2019-12-30 09:29 | Cardiac Electrophysiology PN ---
Assessment/Plan Assessment/Plan 1. Non-ST elevation myocardial infarction by elevated troponin. However, this could be due to renal failure, creatinine is 2. The EKG showed atrial fibrillation, occasional PVC. The patient on aspirin and Lipitor,metoprolol and Imdur. Echocardiogram EF 65% 2. Atrial fibrillation. The rate is currently controlled on Cardizem CD 180 mg daily and Digoxin. DC subcutaneous Lovenox and start Eliquis 5 bid. DIg level in am 3. Hypertension, stable on our Cardizem, Hydralazine, Isordil . 4. COPD on albuterol. 5. Occasional PVCs. Echocardiogram shows ejection fraction of 65%. 6. Rule out COVID pneumonia. 7. Renal failure, creatinine of 2. DW Dr Harry Subjective Subjective Remained in atrial fib with controlled rate. First Covid is pending Objective Last 24 Hour Vital Signs Date Time Temp Pulse Resp B/P (MAP) Pulse Ox O2 Delivery O2 Flow Rate FiO2 12/30/19 07:21 148/86 12/30/19 07:21 148/86 12/30/19 04:00 98.2 56 20 161/89 (113) 98 12/30/19 01:00 161/84 12/29/19 23:29 69 149/72 12/29/19 23:28 149/72 12/29/19 21:00 Nasal Cannula 4.0 12/29/19 20:00 96.1 64 19 149/72 (97) 94 12/29/19 17:36 151/78 12/29/19 16:00 98.6 61 22 151/78 (102) 96 12/29/19 15:49 67 12/29/19 14:25 149/77 12/29/19 12:21 149/77 12/29/19 12:00 98.8 69 20 149/77 (101) 95 12/29/19 11:24 71 Intake and Output 12/29/19 12/30/19 19:00 07:00 Intake Total 1075 ml Output Total 200 ml Balance -200 ml 1075 ml IV Total 1075 ml Output Urine Total 200 ml # Voids 1 Laboratory Tests Test 12/29/19 10:35 12/29/19 11:30 12/30/19 06:25 White Blood Count 5.7 K/UL (4.8-10.8) 6.0 K/UL (4.8-10.8) Red Blood Count 4.62 M/UL (4.70-6.10) L 4.62 M/UL (4.70-6.10) L Hemoglobin 14.8 G/DL (14.2-18.0) 14.6 G/DL (14.2-18.0) Hematocrit 42.6 % (42.0-52.0) 42.3 % (42.0-52.0) Mean Corpuscular Volume 92 FL (80-99) 91 FL (80-99) Mean Corpuscular Hemoglobin 32.0 PG (27.0-31.0) H 31.6 PG (27.0-31.0) H Mean Corpuscular Hemoglobin Concent 34.7 G/DL (32.0-36.0) 34.6 G/DL (32.0-36.0) Red Cell Distribution Width 11.3 % (11.6-14.8) L 11.3 % (11.6-14.8) L Platelet Count 121 K/UL (150-450) L 121 K/UL (150-450) L Mean Platelet Volume 6.3 FL (6.5-10.1) L 6.5 FL (6.5-10.1) Neutrophils (%) (Auto) 83.8 % (45.0-75.0) H 80.7 % (45.0-75.0) H Lymphocytes (%) (Auto) 9.2 % (20.0-45.0) L 11.4 % (20.0-45.0) L Monocytes (%) (Auto) 6.6 % (1.0-10.0) 7.1 % (1.0-10.0) Eosinophils (%) (Auto) 0.0 % (0.0-3.0) 0.1 % (0.0-3.0) Basophils (%) (Auto) 0.4 % (0.0-2.0) 0.7 % (0.0-2.0) Sodium Level 147 MMOL/L (136-145) H 142 MMOL/L (136-145) Potassium Level 3.7 MMOL/L (3.5-5.1) 3.7 MMOL/L (3.5-5.1) Chloride Level 110 MMOL/L (98-107) H 108 MMOL/L (98-107) H Carbon Dioxide Level 25 MMOL/L (21-32) 24 MMOL/L (21-32) Anion Gap 12 mmol/L (5-15) 10 mmol/L (5-15) Blood Urea Nitrogen 46 mg/dL (7-18) H 42 mg/dL (7-18) H Creatinine 1.9 MG/DL (0.55-1.30) H 1.7 MG/DL (0.55-1.30) H Estimat Glomerular Filtration Rate 41.6 mL/min (>60) 47.3 mL/min (>60) Glucose Level 147 MG/DL (74-106) H 100 MG/DL (74-106) Calcium Level 8.6 MG/DL (8.5-10.1) 8.4 MG/DL (8.5-10.1) L Phosphorus Level 3.3 MG/DL (2.5-4.9) 3.0 MG/DL (2.5-4.9) Magnesium Level 2.2 MG/DL (1.8-2.4) 2.2 MG/DL (1.8-2.4) Total Bilirubin 1.8 MG/DL (0.2-1.0) H 1.5 MG/DL (0.2-1.0) H Direct Bilirubin 1.1 MG/DL (0.0-0.3) H 0.9 MG/DL (0.0-0.3) H Aspartate Amino Transf (AST/SGOT) 80 U/L (15-37) H 72 U/L (15-37) H Alanine Aminotransferase (ALT/SGPT) 59 U/L (12-78) 59 U/L (12-78) Alkaline Phosphatase 108 U/L (46-116) 111 U/L (46-116) Troponin I 0.180 ng/mL (0.000-0.056) 0.101 ng/mL (0.000-0.056) Total Protein 7.2 G/DL (6.4-8.2) 7.0 G/DL (6.4-8.2) Albumin 2.6 G/DL (3.4-5.0) L 2.4 G/DL (3.4-5.0) L Globulin 4.6 g/dL 4.6 g/dL Albumin/Globulin Ratio 0.6 (1.0-2.7) L 0.5 (1.0-2.7) L Digoxin Level 1.7 NG/ML (0.5-2.0) 0.9 NG/ML (0.5-2.0) Urine Random Sodium < 20 mmol/L (20-110) L Hemoglobin A1c 4.6 % (4.3-6.0) Lactic Acid Level 1.20 mmol/L (0.4-2.0) Uric Acid 5.9 MG/DL (2.6-7.2) Iron Level 45 ug/dL (50-175) L Total Iron Binding Capacity 138 ug/dL (250-450) L Percent Iron Saturation 33 % (15-50) Unsaturated Iron Binding 93 ug/dL (112-346) L Ferritin 1821 NG/ML (8-388) H Gamma Glutamyl Transpeptidase 77 U/L (5-85) Lactate Dehydrogenase 291 U/L (81-234) H C-Reactive Protein, Quantitative 33.6 mg/dL (0.00-0.90) H Pro-B-Type Natriuretic Peptide 5503 pg/mL (0-125) H Triglycerides Level 67 MG/DL (30-150) Cholesterol Level 87 MG/DL (< 200) LDL Cholesterol 40 mg/dL (<100) HDL Cholesterol 31 MG/DL (40-60) L Cholesterol/HDL Ratio 2.8 (3.3-4.4) L Vitamin B12 Level 1361 PG/ML (193-986) H Folate 10.7 NG/ML (8.6-58.9) Thyroid Stimulating Hormone (TSH) 2.209 uiU/mL (0.358-3.740) Microbiology Date/Time Source Procedure Growth Status 12/28/19 21:40 Urine,Clean Catch Urine Culture - Preliminary Gram Negative Bacillus 1 Resulted 12/29/19 06:50 Rectum Received Objective HEAD AND NECK: Showed no JVD. LUNGS: Coarse rhonchi. CARDIOVASCULAR: Regular S1 and S2 with no gallop. ABDOMEN: Soft. EXTREMITIES: No pitting edema. Francois Del Rosario MD December 30, 2019 09:29
--- NOTE | 2019-12-30 09:40 | NUR ---
*-* INSURANCE *-* ALL AVAILABLE CLINICALS HAVE BEEN FAXED TO: [facility] ([facility]) [phone] Work [phone] FAX [phone] FAX
--- NOTE | 2019-12-30 09:50 | NUR ---
CASE MANAGEMENT:REVIEW 79 YR OLD MALE BIBA FROM [facility] CC; ALOC. LETHARGIC SI: PNEUMONIA. SUSPECTED COVID 19. RENAL INSUFFICIENCY 104.0 90 40 178/100 97% ON 4L/NC BUN+48 CR+2.0 TBILI+1.9 DBILI+1.1 BNP+4086 PLT-124 TROPONIN(+) 0.151 IS: IV VANCOMYCIN IV ROCEPHIN IV AZITHROMYCIN 1L NS BOLUS TYLENOL IL URINE CX CHEST XRAY BLOOD CX COVID 19 SWAB : TELEMETRY UNIT 12/29/19 SI: SEPSIS. RLL PNEUMONIA. AC/CHR RENAL INSUFF 96.1 64 19 149/72 94% ON 4L/NC PLT-121 NA_147 BUN+46 CR+1.9 TBILI+1.8 DBILI+1.1 TROPONIN(+) 0.180 IS: IVF@75/HR IV AZITHROMYCIN Q24 IV CEFEPIME Q12 LIPITOR PO QHS SORBITOL PO Q6HRS ASA PO QD CARDIZEM PO QD MVI PO QD DIGOXIN PO QD ISORDIL PO Q6HRS : TELEMETRY STATUS DCP: [facility] [place] 12/30/19 SI: SEPSIS. RLL PNEUMONIA. AC/CHR RENAL INSUFF 98.2 56 20 148/86 98% ON 4L/NC PLT-121 BUN+42 CR+1.7 TROPONIN(+) 0.101 BNP+5503 IS: IVF@75/HR IV AZITHROMYCIN Q24 IV CEFEPIME Q12 LIPITOR PO QHS SORBITOL PO Q6HRS ASA PO QD CARDIZEM PO QD MVI PO QD DIGOXIN PO QD ISORDIL PO Q6HRS : TELEMETRY STATUS DCP: [facility] PLAN: COVID 19 RESULTS PENDING CALLED [facility] @ [phone] AND SPOKE WITH [facility] THEY WILL WAIT FOR COVID RESULTS AND ORDER STATING "STABLE FOR TRANSFER" BEFORE INITIATING SENDING A TEAM FOR THEIR PATIENT PATIENT HAS BEEN AUTHORIZED TO REMAIN AT [facility] FOR TODAY AND CASE WILL BE REVISITED TOMORROW @ 10AM
[2019-12-30] MEDS: Multivitamin w/Minerals tab ORAL SCH (10:00)
--- NOTE | 2019-12-30 10:00 | NUR ---
RADIOLOGY DEPT., CHEST X-RAY DONE.-P.DYE
[2019-12-30] MEDS: Digoxin 0.125mg tab ORAL SCH (10:02)
[2019-12-30] MEDS: Docusate 250mg cap ORAL SCH ×2 (10:03→17:12)
[2019-12-30] MEDS: Aspirin EC 81mg tab ORAL SCH (10:03)
[2019-12-30] MEDS: dilTIAZem HCl CD 180mg cap ORAL SCH (10:03)
--- NOTE | 2019-12-30 10:07 | Diagnostic Imaging Report ---
Procedure: XRAY Chest 1v Reason for study: Reason For Exam: SOB Comparison films: 12/28/2019. FINDINGS: A single one view chest is obtained. Vascularity is normal. Bibasilar infiltrates unchanged. Cardiomegaly and right effusion unchanged. The bony thorax appear unremarkable. IMPRESSION: NO SIGNIFICANT CHANGE COMPARED TO PREVIOUS EXAM.
--- NOTE | 2019-12-30 10:33 | NUR ---
NURSE NOTES:WOUND CARE NOTES:Pt presented on admission with non-blanching erythema sacrum,R and L gluteal cheeks.Darker skin tone without erythema or induration R ischium.Non-blanching erythema L Heel. No other skin concerns noted. Tx.Plan: Apply Moisture Barrier Paste to Buttocks. Cover Sacrum with Optifoam. Change every 3 days and prn. Apply Moisture Barrier Paste to Bilat groin,R and L Ischial tuberosities with each incontinence care. Apply Cavilon Skin Barrier to both heels. Cover each heel with Optifoam drsg. Change every 7 days and prn. Reposition at least every 2houors or as tolerated. Place pillow between knees. Off-load heels with Pillow.
--- NOTE | 2019-12-30 10:33 | NUR ---
TRANSFER/DISCHARGE PLAN: COVID 19 RESULTS PENDING CALLED [facility] @ [phone] AND SPOKE WITH [facility] THEY WILL WAIT FOR COVID RESULTS AND ORDER STATING "STABLE FOR TRANSFER" BEFORE INITIATING SENDING A TEAM FOR THEIR PATIENT PATIENT HAS BEEN AUTHORIZED TO REMAIN AT [facility] FOR TODAY AND CASE WILL BE REVISITED TOMORROW @ 10AM AUTH/REF #[id number]
--- NOTE | 2019-12-30 10:34 | Pulmonology Progress Note ---
Subjective Allergies: Coded Allergies: No Known Allergies (Unverified , 12/28/19) All Systems: reviewed and negative except above Subjective fevers resolved no leuk on o2 2 L via NC no signs of resp distress in isolation fOR suspected CoviD 19 Objective Last 24 Hour Vital Signs Date Time Temp Pulse Resp B/P (MAP) Pulse Ox O2 Delivery O2 Flow Rate FiO2 12/30/19 10:03 68 165/81 12/30/19 10:02 68 165/81 12/30/19 10:02 68 12/30/19 07:21 148/86 12/30/19 07:21 148/86 12/30/19 04:00 98.2 56 20 161/89 (113) 98 12/30/19 01:00 161/84 12/29/19 23:29 69 149/72 12/29/19 23:28 149/72 12/29/19 21:00 Nasal Cannula 4.0 12/29/19 20:00 96.1 64 19 149/72 (97) 94 12/29/19 17:36 151/78 12/29/19 16:00 98.6 61 22 151/78 (102) 96 12/29/19 15:49 67 12/29/19 14:25 149/77 12/29/19 12:21 149/77 12/29/19 12:00 98.8 69 20 149/77 (101) 95 12/29/19 11:24 71 Intake and Output 12/29/19 12/30/19 19:00 07:00 Intake Total 1150 ml Output Total 200 ml Balance -200 ml 1150 ml IV Total 1150 ml Output Urine Total 200 ml # Voids 1 Objective General Appearance: no apparent distress, awake, somewhat responsive AA male in NAD Lines, tubes and drains: peripheral HEENT: normocephalic, atraumatic, anicteric, mucous membranes moist Neck: supple Respiratory/Chest: no accessory muscle use, rhonchi - left - few, rhonchi - right - diffused Cardiovascular/Chest: normal rate Abdomen: normal bowel sounds, non tender, soft Extremities: no calf tenderness, no edema Neurologic: abnormal gait, alert but somewhat responsive, , R side weakness Musculoskeletal: atrophy - BLE Microbiology Date/Time Source Procedure Growth Status 12/28/19 21:40 Urine,Clean Catch Urine Culture - Preliminary Gram Negative Bacillus 1 Resulted 12/29/19 06:50 Rectum Received Laboratory Tests 12/29/19 10:35: White Blood Count 5.7, Red Blood Count 4.62L, Hemoglobin 14.8, Hematocrit 42.6, Mean Corpuscular Volume 92, Mean Corpuscular Hemoglobin 32.0H, Mean Corpuscular Hemoglobin Concent 34.7, Red Cell Distribution Width 11.3L, Platelet Count 121L , Mean Platelet Volume 6.3L, Neutrophils (%) (Auto) 83.8H, Lymphocytes (%) (Auto ) 9.2L, Monocytes (%) (Auto) 6.6, Eosinophils (%) (Auto) 0.0, Basophils (%) ( Auto) 0.4, Sodium Level 147H, Potassium Level 3.7, Chloride Level 110H, Carbon Dioxide Level 25, Anion Gap 12, Blood Urea Nitrogen 46H, Creatinine 1.9H, Estimat Glomerular Filtration Rate 41.6, Glucose Level 147H, Calcium Level 8.6, Phosphorus Level 3.3, Magnesium Level 2.2, Total Bilirubin 1.8H, Direct Bilirubin 1.1H, Aspartate Amino Transf (AST/SGOT) 80H, Alanine Aminotransferase (ALT/SGPT) 59, Alkaline Phosphatase 108, Troponin I 0.180H, Total Protein 7.2, Albumin 2.6L, Globulin 4.6, Albumin/Globulin Ratio 0.6L, Digoxin Level 1.7 12/29/19 11:30: Urine Random Sodium < 20L 12/30/19 06:25: White Blood Count 6.0, Red Blood Count 4.62L, Hemoglobin 14.6, Hematocrit 42.3, Mean Corpuscular Volume 91, Mean Corpuscular Hemoglobin 31.6H, Mean Corpuscular Hemoglobin Concent 34.6, Red Cell Distribution Width 11.3L, Platelet Count 121L , Mean Platelet Volume 6.5, Neutrophils (%) (Auto) 80.7H, Lymphocytes (%) (Auto ) 11.4L, Monocytes (%) (Auto) 7.1, Eosinophils (%) (Auto) 0.1, Basophils (%) ( Auto) 0.7, Sodium Level 142, Potassium Level 3.7, Chloride Level 108H, Carbon Dioxide Level 24, Anion Gap 10, Blood Urea Nitrogen 42H, Creatinine 1.7H, Estimat Glomerular Filtration Rate 47.3, Glucose Level 100, Calcium Level 8.4L, Phosphorus Level 3.0, Magnesium Level 2.2, Total Bilirubin 1.5H, Direct Bilirubin 0.9H, Aspartate Amino Transf (AST/SGOT) 72H, Alanine Aminotransferase (ALT/SGPT) 59, Alkaline Phosphatase 111, Troponin I 0.101H, Total Protein 7.0, Albumin 2.4L, Globulin 4.6, Albumin/Globulin Ratio 0.5L, Digoxin Level 0.9, Hemoglobin A1c 4.6, Lactic Acid Level 1.20, Uric Acid 5.9, Iron Level 45L, Total Iron Binding Capacity 138L, Percent Iron Saturation 33, Unsaturated Iron Binding 93L, Ferritin 1821H, Gamma Glutamyl Transpeptidase 77, Lactate Dehydrogenase 291H, C-Reactive Protein, Quantitative 33.6H, Pro-B-Type Natriuretic Peptide 5503H, Triglycerides Level 67, Cholesterol Level 87, LDL Cholesterol 40, HDL Cholesterol 31L, Cholesterol/HDL Ratio 2.8L, Vitamin B12 Level 1361H, Folate 10.7, Thyroid Stimulating Hormone (TSH) 2.209 Current Medications Medications (Trade) Dose Ordered Sig/Grayson Route PRN Reason Start Time Stop Time Status Last Admin Dose Admin Acetaminophen (Tylenol) 650 mg Q6H PRN ORAL mild pain/fever 12/29/19 08:48 01/28/20 08:47 Albuterol Sulfate (Proventil MDI) 2 puff Q4H PRN INH Shortness of Breath 12/29/19 07:30 03/28/20 07:29 Apixaban (Eliquis) 2.5 mg BID ORAL 12/30/19 18:00 03/29/20 17:59 Artificial Tears (Akwa-Tears) 1 drop BID BOTH EYES 12/29/19 09:00 01/28/20 08:59 12/30/19 10:05 Aspirin (Ecotrin) 81 mg DAILY ORAL 12/29/19 09:00 02/12/20 08:59 12/30/19 10:03 Atorvastatin Calcium (Lipitor) 20 mg BEDTIME ORAL 12/29/19 21:00 03/28/20 20:59 12/29/19 23:29 Azithromycin 500 mg/Dextrose 275 ml @ 275 mls/hr Q24H IV 12/29/19 21:00 01/04/20 21:59 12/29/19 21:00 Bisacodyl (Dulcolax) 10 mg PRN RECTAL 12/29/19 00:15 03/28/20 00:14 Cefepime HCl 1 gm/ Dextrose 50 ml @ 100 mls/hr EVERY 12 HOURS IVPB 12/29/19 09:00 01/05/20 08:59 12/30/19 10:01 Clonidine HCl (Catapres Tab) 0.1 mg Q4H PRN ORAL sbp>160 12/29/19 08:48 03/28/20 08:47 Dextrose (Dextrose 50%) 25 ml Q30M PRN IV Hypoglycemia 12/29/19 00:15 03/28/20 00:14 Dextrose (Dextrose 50%) 50 ml Q30M PRN IV Hypoglycemia 12/29/19 00:15 03/28/20 00:14 Dextrose/ Electrolytes 1,000 ml @ 75 mls/hr [id number] IV 12/29/19 01:00 01/28/20 00:59 12/30/19 03:40 Digoxin (Lanoxin) 0.125 mg DAILY ORAL 12/29/19 09:00 03/28/20 08:59 12/30/19 10:02 Diltiazem HCl (Cardizem CD) 180 mg DAILY ORAL 12/29/19 09:00 01/28/20 08:59 12/30/19 10:03 Docusate Sodium (Colace) 250 mg TWICE A DAY ORAL 12/29/19 09:00 01/28/20 08:59 12/30/19 10:03 Hydralazine HCl (Apresoline) 25 mg EVERY 8 HOURS ORAL 12/29/19 06:00 03/28/20 05:59 12/30/19 07:21 Isosorbide Dinitrate (Isordil) 10 mg Q6HR ORAL 12/29/19 06:00 01/28/20 05:59 12/30/19 07:21 Metoprolol Tartrate (Lopressor) 25 mg EVERY 12 HOURS ORAL 12/29/19 21:00 03/28/20 20:59 12/30/19 10:02 Mineral Oil (Fleet's Mineral Oil Enema) 133 ml DAILYPRN PRN RECTAL CONSTIPATION 12/29/19 05:58 01/28/20 05:57 Multivitamins Therapeutic (Therapeutic Multivitamin) 1 ea DAILY ORAL 12/29/19 09:00 01/28/20 08:59 12/30/19 10:00 Sorbitol (sorbitoL) 30 ml EVERY 6 HOURS ORAL 12/29/19 12:00 01/28/20 11:59 12/30/19 07:21 Assessment/Plan Assessment/Plan ASSESSMENT sepsis acute hypoxemic resp failure ( requiring high flow of O2 and manifested with tachypnea) PNA suspected CoVID 19 Infection elevated troponin, possible NSTEMI possible CHF A FIB HTN urgency, on admission ESTHER vs CKD transaminitis PLAN OF CARE tele isolation 02 titrate to keep sat above 92% MDI Proventil prn until known CoVID result empiric abx SCX if able fup with CXR DVT prophylaxis fup with SARS-CoV2 by PCR noted elevated CRP, D dimer, ferritin, LDH, trend further serial troponin elevated cardio on board ECHO with pEF and evidecne of moderate pulm HTN Venous Duplex BLE resume home meds , including ASA and statin continue Hydralazine, Digoxin and Isordil for CHF, monitor volumes hydration, monitor e/lytes, renal parameters, avoid nephrotoxics BP management with current regimen and optimize further as needed in A fib, rate controlled with Dig and Cardizem, cardio started on Eliquis, heparin SQ stopped fup with LFT DNR/DNI status case discussed and evaluated by supervising physician Kaitlyn Jeronimo NP December 30, 2019 10:34
--- NOTE | 2019-12-30 11:38 | Nephrology Progress Note ---
Assessment/Plan Problem List: (1) Renal failure (ARF), acute on chronic (2) NSTEMI (non-ST elevated myocardial infarction) (3) Right lower lobe pneumonia (4) Suspected COVID-19 virus infection (5) HTN (hypertension) (6) UTI (urinary tract infection) Assessment Acute renal failure most likely superimposed on underlying chronic kidney disease Acute hypoxic respiratory failure, pneumonia, suspected COVID-19 Sepsis Elevated troponin Suspected congestive heart failure Hypertension, hypertension urgency on admission Evidence of UTI Plan Suggestions: Slow hydration Watch for CHF symptoms Pulmonary toilet Antibiotics Urine studies Keep the blood pressure and blood sugar in check Monitor renal parameters Per orders Per consultants Subjective ROS Limited/Unobtainable: No Constitutional: Reports: malaise, weakness Objective Objective Last 24 Hour Vital Signs Date Time Temp Pulse Resp B/P (MAP) Pulse Ox O2 Delivery O2 Flow Rate FiO2 12/30/19 10:03 68 165/81 12/30/19 10:02 68 165/81 12/30/19 10:02 68 12/30/19 09:00 Nasal Cannula 4.0 12/30/19 08:00 98.1 68 20 165/81 (109) 93 12/30/19 08:00 62 12/30/19 07:21 148/86 12/30/19 07:21 148/86 12/30/19 04:00 98.2 56 20 161/89 (113) 98 12/30/19 01:00 161/84 12/29/19 23:29 69 149/72 12/29/19 23:28 149/72 12/29/19 21:00 Nasal Cannula 4.0 12/29/19 20:00 96.1 64 19 149/72 (97) 94 12/29/19 17:36 151/78 12/29/19 16:00 98.6 61 22 151/78 (102) 96 12/29/19 15:49 67 12/29/19 14:25 149/77 12/29/19 12:21 149/77 12/29/19 12:00 98.8 69 20 149/77 (101) 95 Intake and Output 12/29/19 12/30/19 19:00 07:00 Intake Total 1150 ml Output Total 200 ml Balance -200 ml 1150 ml IV Total 1150 ml Output Urine Total 200 ml # Voids 1 Laboratory Tests 12/30/19 06:25: White Blood Count 6.0, Red Blood Count 4.62L, Hemoglobin 14.6, Hematocrit 42.3, Mean Corpuscular Volume 91, Mean Corpuscular Hemoglobin 31.6H, Mean Corpuscular Hemoglobin Concent 34.6, Red Cell Distribution Width 11.3L, Platelet Count 121L , Mean Platelet Volume 6.5, Neutrophils (%) (Auto) 80.7H, Lymphocytes (%) (Auto ) 11.4L, Monocytes (%) (Auto) 7.1, Eosinophils (%) (Auto) 0.1, Basophils (%) ( Auto) 0.7, Sodium Level 142, Potassium Level 3.7, Chloride Level 108H, Carbon Dioxide Level 24, Anion Gap 10, Blood Urea Nitrogen 42H, Creatinine 1.7H, Estimat Glomerular Filtration Rate 47.3, Glucose Level 100, Hemoglobin A1c 4.6, Lactic Acid Level 1.20, Uric Acid 5.9, Calcium Level 8.4L, Phosphorus Level 3.0 , Magnesium Level 2.2, Iron Level 45L, Total Iron Binding Capacity 138L, Percent Iron Saturation 33, Unsaturated Iron Binding 93L, Ferritin 1821H, Total Bilirubin 1.5H, Direct Bilirubin 0.9H, Gamma Glutamyl Transpeptidase 77, Aspartate Amino Transf (AST/SGOT) 72H, Alanine Aminotransferase (ALT/SGPT) 59, Alkaline Phosphatase 111, Lactate Dehydrogenase 291H, Troponin I 0.101H, C- Reactive Protein, Quantitative 33.6H, Pro-B-Type Natriuretic Peptide 5503H, Total Protein 7.0, Albumin 2.4L, Globulin 4.6, Albumin/Globulin Ratio 0.5L, Triglycerides Level 67, Cholesterol Level 87, LDL Cholesterol 40, HDL Cholesterol 31L, Cholesterol/HDL Ratio 2.8L, Vitamin B12 Level 1361H, Folate 10.7, Thyroid Stimulating Hormone (TSH) 2.209, Digoxin Level 0.9 Height (Feet): 5 Height (Inches): 9.00 Weight (Pounds): 160 Cardiovascular: normal rate, other - Variable rate Respiratory/Chest: decreased breath sounds Abdomen: distended Dano Harry MD December 30, 2019 11:38
[2019-12-30 12:00] VITALS: BP 158/75
--- NOTE | 2019-12-30 13:24 | Consultation ---
History of Present Illness General Date patient seen: December 30, 2019 Chief Complaint: Altered Mental Status Referring physician: Dr Gutierrez Reason for Consultation: PNA Present Illness HPI 79 y/o M with hx of HTN, COPD, CVA w/ residual R side weakness, HLD, dysphagia, pneumonia, DNR/DNI status, SNF resident presented to ED on 12/27 with SOB, chills and cough. UPon admission, was found to have Afib, FEver up to 102, hypoxic requiring High flow, elevated blood pressure up to 178/100, elevated troponins and ESTHER (Cr 2.0). Denied chest pain, sore throat, n/v/d, dysuria. Allergies: Coded Allergies: No Known Allergies (Unverified , 12/28/19) Medication History Scheduled Acetaminophen (Acetaminophen), 325 MG ORAL Q4H, (Reported) Amino Acids/Protein Hydrolys (Pro-Stat Liquid), 30 ML ORAL TWICE A DAY, ( Reported) Aspirin* (Aspir 81*), 81 MG ORAL DAILY, (Reported) Atorvastatin Calcium* (Lipitor*), 20 MG ORAL BEDTIME, (Reported) Clonidine Hcl* (Catapres*), 0.1 MG ORAL EVERY 4 HOURS, (Reported) Digoxin* (Digoxin*), 0.125 MG ORAL DAILY, (Reported) Diltiazem Hcl* (Cardizem*), 180 MG ORAL DAILY, (Reported) Docusate Sodium* (Docusate Sodium*), 250 MG ORAL TWICE A DAY, (Reported) Hydralazine Hcl* (Hydralazine Hcl*), 25 MG ORAL EVERY 8 HOURS, (Reported) Isosorbide Dinitrate* (Isordil*), 30 MG ORAL EVERY 6 HOURS, (Reported) Multivitamin With Minerals (Multivitamins With Minerals*), 1 TAB ORAL DAILY, ( Reported) Sorbitol Solution (Sorbitol), 30 ML ORAL EVERY 6 HOURS, (Reported) Miscellaneous Medications Bisacodyl (Dulcolax), 10 MG RC, (Reported) Chlorhexidine Gluconate (Peridex), 10 ML MM, (Reported) Dextran 70/Hypromellose (Artificial Tears Eye Drops*), 1 DROP BOTH EYES, ( Reported) Mineral Oil (Mineral Oil Enema), 133 ML RC, (Reported) Patient History Healthcare decision maker Resuscitation status Advanced Directive on File Patient History Narrative Pmhx: as above Shx: There is no history of smoking or drug use. Fhx: non contributory Review of Systems All Other Systems: negative except mentioned in HPI Physical Exam Physical Exam Narrative HEAD AND NECK: Showed no JVD. LUNGS: Coarse rhonchi. CARDIOVASCULAR: Regular S1 and S2 with no gallop. ABDOMEN: Soft. EXTREMITIES: No pitting edema. Last 24 Hour Vital Signs Date Time Temp Pulse Resp B/P (MAP) Pulse Ox O2 Delivery O2 Flow Rate FiO2 12/30/19 12:57 158/75 12/30/19 10:03 68 165/81 12/30/19 10:02 68 165/81 12/30/19 10:02 68 12/30/19 09:00 Nasal Cannula 4.0 12/30/19 08:00 98.1 68 20 165/81 (109) 93 12/30/19 08:00 62 12/30/19 07:21 148/86 12/30/19 07:21 148/86 12/30/19 04:00 98.2 56 20 161/89 (113) 98 12/30/19 01:00 161/84 12/29/19 23:29 69 149/72 12/29/19 23:28 149/72 12/29/19 21:00 Nasal Cannula 4.0 12/29/19 20:00 96.1 64 19 149/72 (97) 94 12/29/19 17:36 151/78 12/29/19 16:00 98.6 61 22 151/78 (102) 96 12/29/19 15:49 67 12/29/19 14:25 149/77 Intake and Output 12/29/19 12/30/19 19:00 07:00 Intake Total 1150 ml Output Total 200 ml Balance -200 ml 1150 ml IV Total 1150 ml Output Urine Total 200 ml # Voids 1 Laboratory Tests Test 12/30/19 06:25 White Blood Count 6.0 K/UL (4.8-10.8) Red Blood Count 4.62 M/UL (4.70-6.10) L Hemoglobin 14.6 G/DL (14.2-18.0) Hematocrit 42.3 % (42.0-52.0) Mean Corpuscular Volume 91 FL (80-99) Mean Corpuscular Hemoglobin 31.6 PG (27.0-31.0) H Mean Corpuscular Hemoglobin Concent 34.6 G/DL (32.0-36.0) Red Cell Distribution Width 11.3 % (11.6-14.8) L Platelet Count 121 K/UL (150-450) L Mean Platelet Volume 6.5 FL (6.5-10.1) Neutrophils (%) (Auto) 80.7 % (45.0-75.0) H Lymphocytes (%) (Auto) 11.4 % (20.0-45.0) L Monocytes (%) (Auto) 7.1 % (1.0-10.0) Eosinophils (%) (Auto) 0.1 % (0.0-3.0) Basophils (%) (Auto) 0.7 % (0.0-2.0) Sodium Level 142 MMOL/L (136-145) Potassium Level 3.7 MMOL/L (3.5-5.1) Chloride Level 108 MMOL/L (98-107) H Carbon Dioxide Level 24 MMOL/L (21-32) Anion Gap 10 mmol/L (5-15) Blood Urea Nitrogen 42 mg/dL (7-18) H Creatinine 1.7 MG/DL (0.55-1.30) H Estimat Glomerular Filtration Rate 47.3 mL/min (>60) Glucose Level 100 MG/DL (74-106) Hemoglobin A1c 4.6 % (4.3-6.0) Lactic Acid Level 1.20 mmol/L (0.4-2.0) Uric Acid 5.9 MG/DL (2.6-7.2) Calcium Level 8.4 MG/DL (8.5-10.1) L Phosphorus Level 3.0 MG/DL (2.5-4.9) Magnesium Level 2.2 MG/DL (1.8-2.4) Iron Level 45 ug/dL (50-175) L Total Iron Binding Capacity 138 ug/dL (250-450) L Percent Iron Saturation 33 % (15-50) Unsaturated Iron Binding 93 ug/dL (112-346) L Ferritin 1821 NG/ML (8-388) H Total Bilirubin 1.5 MG/DL (0.2-1.0) H Direct Bilirubin 0.9 MG/DL (0.0-0.3) H Gamma Glutamyl Transpeptidase 77 U/L (5-85) Aspartate Amino Transf (AST/SGOT) 72 U/L (15-37) H Alanine Aminotransferase (ALT/SGPT) 59 U/L (12-78) Alkaline Phosphatase 111 U/L (46-116) Lactate Dehydrogenase 291 U/L (81-234) H Troponin I 0.101 ng/mL (0.000-0.056) C-Reactive Protein, Quantitative 33.6 mg/dL (0.00-0.90) H Pro-B-Type Natriuretic Peptide 5503 pg/mL (0-125) H Total Protein 7.0 G/DL (6.4-8.2) Albumin 2.4 G/DL (3.4-5.0) L Globulin 4.6 g/dL Albumin/Globulin Ratio 0.5 (1.0-2.7) L Triglycerides Level 67 MG/DL (30-150) Cholesterol Level 87 MG/DL (< 200) LDL Cholesterol 40 mg/dL (<100) HDL Cholesterol 31 MG/DL (40-60) L Cholesterol/HDL Ratio 2.8 (3.3-4.4) L Vitamin B12 Level 1361 PG/ML (193-986) H Folate 10.7 NG/ML (8.6-58.9) Thyroid Stimulating Hormone (TSH) 2.209 uiU/mL (0.358-3.740) Digoxin Level 0.9 NG/ML (0.5-2.0) Height (Feet): 5 Height (Inches): 9.00 Weight (Pounds): 160 Medications Current Medications Medications (Trade) Dose Ordered Sig/Grayson Route PRN Reason Start Time Stop Time Status Last Admin Dose Admin Acetaminophen (Tylenol) 650 mg Q6H PRN ORAL mild pain/fever 12/29/19 08:48 01/28/20 08:47 Albuterol Sulfate (Proventil MDI) 2 puff Q4H PRN INH Shortness of Breath 12/29/19 07:30 03/28/20 07:29 Apixaban (Eliquis) 2.5 mg BID ORAL 12/30/19 18:00 03/29/20 17:59 Artificial Tears (Akwa-Tears) 1 drop BID BOTH EYES 12/29/19 09:00 01/28/20 08:59 12/30/19 10:05 Aspirin (Ecotrin) 81 mg DAILY ORAL 12/29/19 09:00 02/12/20 08:59 12/30/19 10:03 Atorvastatin Calcium (Lipitor) 20 mg BEDTIME ORAL 12/29/19 21:00 03/28/20 20:59 12/29/19 23:29 Azithromycin 500 mg/Dextrose 275 ml @ 275 mls/hr Q24H IV 12/29/19 21:00 01/04/20 21:59 12/29/19 21:00 Bisacodyl (Dulcolax) 10 mg PRN RECTAL 12/29/19 00:15 03/28/20 00:14 Cefepime HCl 1 gm/ Dextrose 50 ml @ 100 mls/hr EVERY 12 HOURS IVPB 12/29/19 09:00 01/05/20 08:59 12/30/19 10:01 Clonidine HCl (Catapres Tab) 0.1 mg Q4H PRN ORAL sbp>160 12/29/19 08:48 03/28/20 08:47 Dextrose (Dextrose 50%) 25 ml Q30M PRN IV Hypoglycemia 12/29/19 00:15 03/28/20 00:14 Dextrose (Dextrose 50%) 50 ml Q30M PRN IV Hypoglycemia 12/29/19 00:15 03/28/20 00:14 Dextrose/ Electrolytes 1,000 ml @ 75 mls/hr [id number] IV 12/29/19 01:00 01/28/20 00:59 12/30/19 03:40 Digoxin (Lanoxin) 0.125 mg DAILY ORAL 12/29/19 09:00 03/28/20 08:59 12/30/19 10:02 Diltiazem HCl (Cardizem CD) 180 mg DAILY ORAL 12/29/19 09:00 01/28/20 08:59 12/30/19 10:03 Docusate Sodium (Colace) 250 mg TWICE A DAY ORAL 12/29/19 09:00 01/28/20 08:59 12/30/19 10:03 Hydralazine HCl (Apresoline) 25 mg EVERY 8 HOURS ORAL 12/29/19 06:00 03/28/20 05:59 12/30/19 07:21 Isosorbide Dinitrate (Isordil) 10 mg Q6HR ORAL 12/29/19 06:00 6/16/20 05:59 12/30/19 12:57 Metoprolol Tartrate (Lopressor) 25 mg EVERY 12 HOURS ORAL 12/29/19 21:00 03/28/20 20:59 12/30/19 10:02 Mineral Oil (Fleet's Mineral Oil Enema) 133 ml DAILYPRN PRN RECTAL CONSTIPATION 12/29/19 05:58 01/28/20 05:57 Multivitamins Therapeutic (Therapeutic Multivitamin) 1 ea DAILY ORAL 12/29/19 09:00 01/28/20 08:59 12/30/19 10:00 Sorbitol (sorbitoL) 30 ml EVERY 6 HOURS ORAL 12/29/19 12:00 01/28/20 11:59 12/30/19 12:57 Assessment/Plan Assessment/Plan: Abx: IV Vancomycin 12/27- CEftriaxone x1 12/27 CEfepime 12/28- Azithromycin 12/27- Assessment: Severe Sepsis PNeumonia- high suspicion for COVID19 Acute hypoxic respiratory failure on 4l NC -12/27 CXR: Right lower lung pneumonia. Cardiomegaly. Probable UTI -u/a wbc 30-40, nit neg, leuk +1; ucx >100k GNR Fever No luekocytosis ESTHER, improving Elevated AST Accelerated hypertension NSTEMI HTN COPD CVA w/ residual R side weakness HLD dysphagia pneumonia DNR/DNI status SNF resident ([facility]) Plan: -COntinue empiric IV Vancomycin #3, CEfepime #2 and Azithromycin #3 for now -f/u cx -Monitor CBC/CMP, temperatures -sp cx, legionella ag urine -COVID19 isolation and testing -aspiration precautions -Renal, pulm and cards f/u Thank you for consulting [facility]. Will continue to follow along with you. Discussed with RN, Zaida Alvarado M.D. December 30, 2019 13:24
[2019-12-30 16:00] VITALS: BP 148/73
[2019-12-30] MEDS: Eliquis 2.5mg tablet ORAL SCH (17:12)
--- NOTE | 2019-12-30 18:32 | Internal Med Progress Note ---
Subjective Date of Service: December 30, 2019 Physician Name Fili Perez Attending Physician Scooter Gutierrez MD Current Medications Medications (Trade) Dose Ordered Sig/Grayson Route PRN Reason Start Time Stop Time Status Last Admin Dose Admin Acetaminophen (Tylenol) 650 mg Q6H PRN ORAL mild pain/fever 12/29/19 08:48 01/28/20 08:47 Albuterol Sulfate (Proventil MDI) 2 puff Q4H PRN INH Shortness of Breath 12/29/19 07:30 03/28/20 07:29 Apixaban (Eliquis) 2.5 mg BID ORAL 12/30/19 18:00 03/29/20 17:59 12/30/19 17:12 Artificial Tears (Akwa-Tears) 1 drop BID BOTH EYES 12/29/19 09:00 01/28/20 08:59 12/30/19 17:13 Aspirin (Ecotrin) 81 mg DAILY ORAL 12/29/19 09:00 02/12/20 08:59 12/30/19 10:03 Atorvastatin Calcium (Lipitor) 20 mg BEDTIME ORAL 12/29/19 21:00 03/28/20 20:59 12/29/19 23:29 Azithromycin 500 mg/Dextrose 275 ml @ 275 mls/hr Q24H IV 12/29/19 21:00 01/04/20 21:59 12/29/19 21:00 Bisacodyl (Dulcolax) 10 mg PRN RECTAL 12/29/19 00:15 03/28/20 00:14 Cefepime HCl 1 gm/ Dextrose 50 ml @ 100 mls/hr EVERY 12 HOURS IVPB 12/29/19 09:00 01/05/20 08:59 12/30/19 10:01 Clonidine HCl (Catapres Tab) 0.1 mg Q4H PRN ORAL sbp>160 12/29/19 08:48 03/28/20 08:47 Dextrose (Dextrose 50%) 25 ml Q30M PRN IV Hypoglycemia 12/29/19 00:15 03/28/20 00:14 Dextrose (Dextrose 50%) 50 ml Q30M PRN IV Hypoglycemia 12/29/19 00:15 03/28/20 00:14 Dextrose/ Electrolytes 1,000 ml @ 75 mls/hr [id number] IV 12/29/19 01:00 01/28/20 00:59 12/30/19 17:13 Digoxin (Lanoxin) 0.125 mg DAILY ORAL 12/29/19 09:00 03/28/20 08:59 12/30/19 10:02 Diltiazem HCl (Cardizem CD) 180 mg DAILY ORAL 12/29/19 09:00 01/28/20 08:59 12/30/19 10:03 Docusate Sodium (Colace) 250 mg TWICE A DAY ORAL 12/29/19 09:00 01/28/20 08:59 12/30/19 17:12 Hydralazine HCl (Apresoline) 25 mg EVERY 8 HOURS ORAL 12/29/19 06:00 03/28/20 05:59 12/30/19 14:31 Isosorbide Dinitrate (Isordil) 10 mg Q6HR ORAL 12/29/19 06:00 01/28/20 05:59 12/30/19 17:12 Metoprolol Tartrate (Lopressor) 25 mg EVERY 12 HOURS ORAL 12/29/19 21:00 03/28/20 20:59 12/30/19 10:02 Mineral Oil (Fleet's Mineral Oil Enema) 133 ml DAILYPRN PRN RECTAL CONSTIPATION 12/29/19 05:58 01/28/20 05:57 Multivitamins Therapeutic (Therapeutic Multivitamin) 1 ea DAILY ORAL 12/29/19 09:00 01/28/20 08:59 12/30/19 10:00 Sorbitol (sorbitoL) 30 ml EVERY 6 HOURS ORAL 12/29/19 12:00 01/28/20 11:59 12/30/19 17:13 Allergies: Coded Allergies: No Known Allergies (Unverified , 12/28/19) ROS Limited/Unobtainable: Yes Subjective 79 YO M admitted with shortness of breath. Now respiratory failure. Cover for Int Huy-DR Gutierrez Objective Last Vital Signs Date Time Temp Pulse Resp B/P (MAP) Pulse Ox O2 Delivery O2 Flow Rate FiO2 12/30/19 17:12 148/73 12/30/19 16:00 98.2 54 18 95 12/30/19 09:00 Nasal Cannula 4.0 Laboratory Tests Test 12/30/19 06:25 White Blood Count 6.0 K/UL (4.8-10.8) Red Blood Count 4.62 M/UL (4.70-6.10) L Hemoglobin 14.6 G/DL (14.2-18.0) Hematocrit 42.3 % (42.0-52.0) Mean Corpuscular Volume 91 FL (80-99) Mean Corpuscular Hemoglobin 31.6 PG (27.0-31.0) H Mean Corpuscular Hemoglobin Concent 34.6 G/DL (32.0-36.0) Red Cell Distribution Width 11.3 % (11.6-14.8) L Platelet Count 121 K/UL (150-450) L Mean Platelet Volume 6.5 FL (6.5-10.1) Neutrophils (%) (Auto) 80.7 % (45.0-75.0) H Lymphocytes (%) (Auto) 11.4 % (20.0-45.0) L Monocytes (%) (Auto) 7.1 % (1.0-10.0) Eosinophils (%) (Auto) 0.1 % (0.0-3.0) Basophils (%) (Auto) 0.7 % (0.0-2.0) Sodium Level 142 MMOL/L (136-145) Potassium Level 3.7 MMOL/L (3.5-5.1) Chloride Level 108 MMOL/L (98-107) H Carbon Dioxide Level 24 MMOL/L (21-32) Anion Gap 10 mmol/L (5-15) Blood Urea Nitrogen 42 mg/dL (7-18) H Creatinine 1.7 MG/DL (0.55-1.30) H Estimat Glomerular Filtration Rate 47.3 mL/min (>60) Glucose Level 100 MG/DL (74-106) Hemoglobin A1c 4.6 % (4.3-6.0) Lactic Acid Level 1.20 mmol/L (0.4-2.0) Uric Acid 5.9 MG/DL (2.6-7.2) Calcium Level 8.4 MG/DL (8.5-10.1) L Phosphorus Level 3.0 MG/DL (2.5-4.9) Magnesium Level 2.2 MG/DL (1.8-2.4) Iron Level 45 ug/dL (50-175) L Total Iron Binding Capacity 138 ug/dL (250-450) L Percent Iron Saturation 33 % (15-50) Unsaturated Iron Binding 93 ug/dL (112-346) L Ferritin 1821 NG/ML (8-388) H Total Bilirubin 1.5 MG/DL (0.2-1.0) H Direct Bilirubin 0.9 MG/DL (0.0-0.3) H Gamma Glutamyl Transpeptidase 77 U/L (5-85) Aspartate Amino Transf (AST/SGOT) 72 U/L (15-37) H Alanine Aminotransferase (ALT/SGPT) 59 U/L (12-78) Alkaline Phosphatase 111 U/L (46-116) Lactate Dehydrogenase 291 U/L (81-234) H Troponin I 0.101 ng/mL (0.000-0.056) C-Reactive Protein, Quantitative 33.6 mg/dL (0.00-0.90) H Pro-B-Type Natriuretic Peptide 5503 pg/mL (0-125) H Total Protein 7.0 G/DL (6.4-8.2) Albumin 2.4 G/DL (3.4-5.0) L Globulin 4.6 g/dL Albumin/Globulin Ratio 0.5 (1.0-2.7) L Triglycerides Level 67 MG/DL (30-150) Cholesterol Level 87 MG/DL (< 200) LDL Cholesterol 40 mg/dL (<100) HDL Cholesterol 31 MG/DL (40-60) L Cholesterol/HDL Ratio 2.8 (3.3-4.4) L Vitamin B12 Level 1361 PG/ML (193-986) H Folate 10.7 NG/ML (8.6-58.9) Thyroid Stimulating Hormone (TSH) 2.209 uiU/mL (0.358-3.740) Digoxin Level 0.9 NG/ML (0.5-2.0) Microbiology Date/Time Source Procedure Growth Status 12/28/19 21:40 Urine,Clean Catch Urine Culture - Preliminary Gram Negative Bacillus 1 Resulted 12/29/19 06:50 Rectum Received Intake and Output 12/29/19 12/30/19 19:00 07:00 Intake Total 1150 ml Output Total 200 ml Balance -200 ml 1150 ml IV Total 1150 ml Output Urine Total 200 ml # Voids 1 Objective PHYSICAL EXAMINATION: GENERAL: The patient awake, responsive, no acute distress. HEENT: Pupils are equal and reactive to light. Extraocular movements intact. Neck was supple. No JVD. LUNGS: Good air entry. No wheezing or rales. Decreased in bases. HEART: S1 and S2. Distant heart sounds. No murmur or gallops. ABDOMEN: Soft, nondistended, nontender. Positive bowel sounds. EXTREMITIES: No cyanosis, clubbing, edema. NEUROLOGIC: Cranial nerves II through XII grossly normal. The patient moving left side upper extremities and lower extremity. Right upper extremity contracture. Right lower extremity is decreased motor. Assessment/Plan Assessment/Plan ASSESSMENT: 1. Right lower lobe pneumonia. 2. Acute hypoxemic respiratory failure. 3. COVID-19 ruled out infection. 4. Acute kidney injury on chronic renal insufficiency. 5. Sepsis. 6. Hypertension. 7. Dyslipidemia. 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 9. Admit to telemetry on the COVID-19 isolation. We will follow up with COVID-19 cultures and follow up with urine culture and blood culture. Monitor laboratory, IV hydration, and start the patient on broad-spectrum antibiotic with azithromycin and cefepime. 10. DVT prophylaxis on Lovenox. 11. Code status is DNR. 12. We will follow up with Dr. Del Rosario from Cardiology Electrophysiology, Dr. Calero, Pulmonary Critical Care, Dr. Harry from Nephrology, and Dr. Mendosa from Infectious Diseases consultations. 13. Non ST elevated myocardial infarction/elevated troponin Fili Perez MD December 30, 2019 18:32
--- NOTE | 2019-12-30 19:36 | NUR ---
HAND-OFF: Report given to Chen/RN, Patient is in Stable condition. Endorsed plan of care.
[2019-12-30 20:00] VITALS: BP 159/76
[2019-12-30] MEDS: Atorvastatin 20mg tab ORAL SCH (21:43)
[2019-12-30] MEDS: Azithromycin 500 MG in D5W 275 ML IV SCH (21:43)
[2019-12-31] VITALS (7 sets, daily range): BP systolic 156–199; BP diastolic 83–113
[2019-12-31] MEDS: HydrALAZINE 25mg tab ORAL SCH (05:33)
[2019-12-31] MEDS: Sorbitol Solution UD 30ml ORAL SCH ×4 (06:00→17:53)
[2019-12-31 06:05] LABS: BASOPHILS % (AUTO) 0.6 % (0.0-2.0); EOSINOPHILS % (AUTO) 0.1 % (0.0-3.0); HEMATOCRIT 44.1 % (42.0-52.0); HEMOGLOBIN 15.3 G/DL (14.2-18.0); LYMPHOCYTES % (AUTO) 15.4 % (20.0-45.0); MEAN CORPUSCULAR VOLUME 91 FL (80-99); MONOCYTES % (AUTO) 10.1 % (1.0-10.0); NEUTROPHILS % (AUTO) 73.9 % (45.0-75.0); PLATELET COUNT 131 K/UL (150-450); RED BLOOD COUNT 4.82 M/UL (4.70-6.10); RED CELL DISTRIBUTION WIDTH 11.1 % (11.6-14.8); WHITE BLOOD COUNT 3.9 K/UL (4.8-10.8)
[2019-12-31] MEDS: D5 1/2NS w/KCl 20mEq 1,000 ML IV SCH (06:14)
[2019-12-31 07:04] LABS: ANION GAP 11 mmol/L (5-15); BLOOD UREA NITROGEN 39 mg/dL (7-18); CARBON DIOXIDE 24 MMOL/L (21-32); CHLORIDE 104 MMOL/L (98-107); CREATININE 1.7 MG/DL (0.55-1.30); POTASSIUM 4.4 MMOL/L (3.5-5.1); SODIUM 139 MMOL/L (136-145)
--- NOTE | 2019-12-31 07:15 | NUR ---
NURSE NOTES: Received report from Chen/RN, Patient is asleep, lying semi-langston's, resting comfortably. On 4L nasal canula, no acute distress/SOB noted. IV on right AC 20G patent, no bleeding or infiltration noted. Bed in low position and locked. Call light within reach. Encouraged to use call light when needed. Will continue plan of care.
--- NOTE | 2019-12-31 07:22 | NUR ---
HAND-OFF: Report given to MALACHI Lundberg. Patient shows no signs of distress or pain at the time. Endorsed plan of care.
[2019-12-31] MEDS: Digoxin 0.125mg tab ORAL SCH (09:00)
[2019-12-31] MEDS: Docusate 250mg cap ORAL SCH ×2 (09:00→17:53)
[2019-12-31] MEDS: Aspirin EC 81mg tab ORAL SCH (09:22)
[2019-12-31] MEDS: Multivitamin w/Minerals tab ORAL SCH (09:22)
[2019-12-31] MEDS: Eliquis 2.5mg tablet ORAL SCH ×2 (09:22→17:52)
[2019-12-31] MEDS: dilTIAZem HCl CD 180mg cap ORAL SCH (09:22)
--- NOTE | 2019-12-31 11:59 | Cardiac Electrophysiology PN ---
Assessment/Plan Assessment/Plan 1. Non-ST elevation myocardial infarction by elevated troponin. Could be due to renal failure, creatinine is 2. The EKG showed atrial fibrillation, occasional PVC. Continue aspirin, Lipitor, metoprolol and Imdur. EF 65% 2. Atrial fibrillation. On Cardizem CD 180 mg daily and Digoxin. On Eliquis 5 bid. Dig level 1.1 today 3. Hypertension, stable on our Cardizem, Lopressor and increase Hydralazine to 50 tid, Isordil . 4. COPD on albuterol. 5. Occasional PVCs. Echocardiogram shows ejection fraction of 65%. 6. Rule out COVID pneumonia. 7. Renal failure, creatinine of 2. DW Dr Harry Subjective Subjective Remained in atrial fib with controlled rate. At times slow. BP was in 200s and got Clonidine Objective Last 24 Hour Vital Signs Date Time Temp Pulse Resp B/P (MAP) Pulse Ox O2 Delivery O2 Flow Rate FiO2 12/31/19 11:22 199/113 12/31/19 11:22 199/113 12/31/19 09:22 55 156/104 12/31/19 09:00 55 156/104 12/31/19 09:00 55 12/31/19 09:00 Nasal Cannula 4.0 12/31/19 08:00 97.6 55 20 156/104 (121) 98 12/31/19 08:00 57 12/31/19 06:00 97.5 57 20 184/92 (122) 95 12/31/19 05:33 183/82 12/31/19 05:33 183/82 12/31/19 04:00 79 12/31/19 04:00 97.5 57 20 184/92 (122) 95 12/31/19 00:11 159/76 12/31/19 00:00 98.5 55 20 172/83 (112) 97 12/30/19 21:44 59 159/76 12/30/19 21:44 159/76 12/30/19 21:00 Nasal Cannula 4.0 12/30/19 20:00 57 12/30/19 20:00 97.5 59 20 159/76 (103) 96 12/30/19 17:12 148/73 12/30/19 16:00 98.2 54 18 148/73 (98) 95 12/30/19 16:00 71 12/30/19 14:31 158/75 12/30/19 12:57 158/75 12/30/19 12:00 97.8 62 20 158/75 (102) 93 12/30/19 12:00 60 Intake and Output 12/30/19 12/31/19 19:00 07:00 Intake Total 360 ml Output Total 600 ml Balance -240 ml Intake Oral 360 ml Output Urine Total 600 ml # Bowel Movements 1 Laboratory Tests Test 12/31/19 04:30 White Blood Count 3.9 K/UL (4.8-10.8) L Red Blood Count 4.82 M/UL (4.70-6.10) Hemoglobin 15.3 G/DL (14.2-18.0) Hematocrit 44.1 % (42.0-52.0) Mean Corpuscular Volume 91 FL (80-99) Mean Corpuscular Hemoglobin 31.8 PG (27.0-31.0) H Mean Corpuscular Hemoglobin Concent 34.7 G/DL (32.0-36.0) Red Cell Distribution Width 11.1 % (11.6-14.8) L Platelet Count 131 K/UL (150-450) L Mean Platelet Volume 7.5 FL (6.5-10.1) Neutrophils (%) (Auto) 73.9 % (45.0-75.0) Lymphocytes (%) (Auto) 15.4 % (20.0-45.0) L Monocytes (%) (Auto) 10.1 % (1.0-10.0) H Eosinophils (%) (Auto) 0.1 % (0.0-3.0) Basophils (%) (Auto) 0.6 % (0.0-2.0) Sodium Level 139 MMOL/L (136-145) Potassium Level 4.4 MMOL/L (3.5-5.1) Chloride Level 104 MMOL/L (98-107) Carbon Dioxide Level 24 MMOL/L (21-32) Anion Gap 11 mmol/L (5-15) Blood Urea Nitrogen 39 mg/dL (7-18) H Creatinine 1.7 MG/DL (0.55-1.30) H Estimat Glomerular Filtration Rate 47.3 mL/min (>60) Glucose Level 104 MG/DL (74-106) Calcium Level 9.0 MG/DL (8.5-10.1) Digoxin Level 1.1 NG/ML (0.5-2.0) Microbiology Date/Time Source Procedure Growth Status 12/29/19 06:50 Nasal Nares MRSA Culture - Final NO METHICILLIN RESISTANT STAPH AUREUS... Complete 12/28/19 21:40 Urine,Clean Catch Urine Culture - Preliminary Gram Negative Bacillus 1 Resulted 12/29/19 06:50 Rectum Received Objective HEAD AND NECK: Showed no JVD. LUNGS: Coarse rhonchi. CARDIOVASCULAR: Regular S1 and S2 with no gallop. ABDOMEN: Soft. EXTREMITIES: No pitting edema. Francois Del Rosario MD December 31, 2019 11:59
--- NOTE | 2019-12-31 12:12 | Infectious Diseases Prog Note ---
Assessment/Plan Assessment/Plan Assessment: Severe Sepsis Pneumonia- high suspicion for COVID19 Acute hypoxic respiratory failure on 4l NC -12/27 CXR: Right lower lung pneumonia. Cardiomegaly. Probable UTI -u/a wbc 30-40, nit neg, leuk +1; ucx >100k GNR Fever; SP No leukocytosis> mild leukopenia Thrombocytopenia ESTHER, improving Elevated AST Accelerated hypertension NSTEMI HTN COPD CVA w/ residual R side weakness HLD dysphagia pneumonia DNR/DNI status SNF resident ([facility]) Plan: -COntinue empiric CEfepime #3(abx d #4) and Azithromycin #4 for now -12/27 SP Ceftriaxone x1, IV Vancomycin x1 -f/u cx -Monitor CBC/CMP, temperatures -f/u sp cx, legionella ag urine -COVID19 isolation and testing -aspiration precautions -Renal, pulm and cards f/u Thank you for consulting [facility]. Will continue to follow along with you. Discussed with RN, Subjective Allergies: Coded Allergies: No Known Allergies (Unverified , 12/28/19) Subjective afebrile >48hrs at 4l NC Objective Vital Signs Last 24 Hour Vital Signs Date Time Temp Pulse Resp B/P (MAP) Pulse Ox O2 Delivery O2 Flow Rate FiO2 12/31/19 12:00 97.9 69 20 199/113 (141) 95 12/31/19 11:22 199/113 12/31/19 11:22 199/113 12/31/19 09:22 55 156/104 12/31/19 09:00 55 156/104 12/31/19 09:00 55 12/31/19 09:00 Nasal Cannula 4.0 12/31/19 08:00 97.6 55 20 156/104 (121) 98 12/31/19 08:00 57 12/31/19 06:00 97.5 57 20 184/92 (122) 95 12/31/19 05:33 183/82 12/31/19 05:33 183/82 12/31/19 04:00 79 12/31/19 04:00 97.5 57 20 184/92 (122) 95 12/31/19 00:11 159/76 12/31/19 00:00 98.5 55 20 172/83 (112) 97 12/30/19 21:44 59 159/76 12/30/19 21:44 159/76 12/30/19 21:00 Nasal Cannula 4.0 12/30/19 20:00 57 12/30/19 20:00 97.5 59 20 159/76 (103) 96 12/30/19 17:12 148/73 12/30/19 16:00 98.2 54 18 148/73 (98) 95 12/30/19 16:00 71 12/30/19 14:31 158/75 12/30/19 12:57 158/75 Height (Feet): 5 Height (Inches): 9.00 Weight (Pounds): 160 Objective not examined to Limit COVID19 exposure Microbiology Date/Time Source Procedure Growth Status 12/29/19 06:50 Nasal Nares MRSA Culture - Final NO METHICILLIN RESISTANT STAPH AUREUS... Complete 12/28/19 21:40 Urine,Clean Catch Urine Culture - Preliminary Gram Negative Bacillus 1 Resulted 12/29/19 06:50 Rectum Received Laboratory Tests Test 12/31/19 04:30 White Blood Count 3.9 K/UL (4.8-10.8) L Red Blood Count 4.82 M/UL (4.70-6.10) Hemoglobin 15.3 G/DL (14.2-18.0) Hematocrit 44.1 % (42.0-52.0) Mean Corpuscular Volume 91 FL (80-99) Mean Corpuscular Hemoglobin 31.8 PG (27.0-31.0) H Mean Corpuscular Hemoglobin Concent 34.7 G/DL (32.0-36.0) Red Cell Distribution Width 11.1 % (11.6-14.8) L Platelet Count 131 K/UL (150-450) L Mean Platelet Volume 7.5 FL (6.5-10.1) Neutrophils (%) (Auto) 73.9 % (45.0-75.0) Lymphocytes (%) (Auto) 15.4 % (20.0-45.0) L Monocytes (%) (Auto) 10.1 % (1.0-10.0) H Eosinophils (%) (Auto) 0.1 % (0.0-3.0) Basophils (%) (Auto) 0.6 % (0.0-2.0) Sodium Level 139 MMOL/L (136-145) Potassium Level 4.4 MMOL/L (3.5-5.1) Chloride Level 104 MMOL/L (98-107) Carbon Dioxide Level 24 MMOL/L (21-32) Anion Gap 11 mmol/L (5-15) Blood Urea Nitrogen 39 mg/dL (7-18) H Creatinine 1.7 MG/DL (0.55-1.30) H Estimat Glomerular Filtration Rate 47.3 mL/min (>60) Glucose Level 104 MG/DL (74-106) Calcium Level 9.0 MG/DL (8.5-10.1) Digoxin Level 1.1 NG/ML (0.5-2.0) Current Medications Medications (Trade) Dose Ordered Sig/Grayson Route PRN Reason Start Time Stop Time Status Last Admin Dose Admin Acetaminophen (Tylenol) 650 mg Q6H PRN ORAL mild pain/fever 12/29/19 08:48 01/28/20 08:47 Albuterol Sulfate (Proventil MDI) 2 puff Q4H PRN INH Shortness of Breath 12/29/19 07:30 03/28/20 07:29 Apixaban (Eliquis) 2.5 mg BID ORAL 12/30/19 18:00 03/29/20 17:59 12/31/19 09:22 Artificial Tears (Akwa-Tears) 1 drop BID BOTH EYES 12/29/19 09:00 01/28/20 08:59 12/31/19 09:24 Aspirin (Ecotrin) 81 mg DAILY ORAL 12/29/19 09:00 02/12/20 08:59 12/31/19 09:22 Atorvastatin Calcium (Lipitor) 20 mg BEDTIME ORAL 12/29/19 21:00 03/28/20 20:59 12/30/19 21:43 Azithromycin 500 mg/Dextrose 275 ml @ 275 mls/hr Q24H IV 12/29/19 21:00 01/04/20 21:59 12/30/19 21:43 Bisacodyl (Dulcolax) 10 mg PRN RECTAL 12/29/19 00:15 03/28/20 00:14 Cefepime HCl 1 gm/ Dextrose 50 ml @ 100 mls/hr EVERY 12 HOURS IVPB 12/29/19 09:00 01/05/20 08:59 12/31/19 09:24 Clonidine HCl (Catapres Tab) 0.1 mg Q4H PRN ORAL sbp>160 12/29/19 08:48 03/28/20 08:47 12/31/19 11:22 Dextrose (Dextrose 50%) 25 ml Q30M PRN IV Hypoglycemia 12/29/19 00:15 03/28/20 00:14 Dextrose (Dextrose 50%) 50 ml Q30M PRN IV Hypoglycemia 12/29/19 00:15 03/28/20 00:14 Dextrose/ Electrolytes 1,000 ml @ 75 mls/hr [id number] IV 12/29/19 01:00 01/28/20 00:59 12/30/19 17:13 Digoxin (Lanoxin) 0.125 mg DAILY ORAL 12/29/19 09:00 03/28/20 08:59 12/30/19 10:02 Diltiazem HCl (Cardizem CD) 180 mg DAILY ORAL 12/29/19 09:00 01/28/20 08:59 12/31/19 09:22 Docusate Sodium (Colace) 250 mg TWICE A DAY ORAL 12/29/19 09:00 01/28/20 08:59 12/30/19 17:12 Hydralazine HCl (Apresoline) 50 mg EVERY 8 HOURS ORAL 12/31/19 14:00 03/28/20 05:59 Isosorbide Dinitrate (Isordil) 10 mg Q6HR ORAL 12/29/19 06:00 01/28/20 05:59 12/31/19 11:22 Metoprolol Tartrate (Lopressor) 25 mg EVERY 12 HOURS ORAL 12/29/19 21:00 03/28/20 20:59 12/30/19 21:44 Mineral Oil (Fleet's Mineral Oil Enema) 133 ml DAILYPRN PRN RECTAL CONSTIPATION 12/29/19 05:58 01/28/20 05:57 Multivitamins Therapeutic (Therapeutic Multivitamin) 1 ea DAILY ORAL 12/29/19 09:00 01/28/20 08:59 12/31/19 09:22 Sorbitol (sorbitoL) 30 ml EVERY 6 HOURS ORAL 12/29/19 12:00 01/28/20 11:59 12/30/19 17:13 Zaida Alvarado M.D. December 31, 2019 12:12
--- NOTE | 2019-12-31 12:32 | Pulmonology Progress Note ---
Subjective ROS Limited/Unobtainable: No Constitutional: Reports: no symptoms HEENT: Repors: no symptoms Allergies: Coded Allergies: No Known Allergies (Unverified , 12/28/19) All Systems: reviewed and negative except above Objective Last 24 Hour Vital Signs Date Time Temp Pulse Resp B/P (MAP) Pulse Ox O2 Delivery O2 Flow Rate FiO2 12/31/19 12:00 67 12/31/19 12:00 97.9 69 20 199/113 (141) 95 12/31/19 11:22 199/113 12/31/19 11:22 199/113 12/31/19 09:22 55 156/104 12/31/19 09:00 55 156/104 12/31/19 09:00 55 12/31/19 09:00 Nasal Cannula 4.0 12/31/19 08:00 97.6 55 20 156/104 (121) 98 12/31/19 08:00 57 12/31/19 06:00 97.5 57 20 184/92 (122) 95 12/31/19 05:33 183/82 12/31/19 05:33 183/82 12/31/19 04:00 79 12/31/19 04:00 97.5 57 20 184/92 (122) 95 12/31/19 00:11 159/76 12/31/19 00:00 98.5 55 20 172/83 (112) 97 12/30/19 21:44 59 159/76 12/30/19 21:44 159/76 12/30/19 21:00 Nasal Cannula 4.0 12/30/19 20:00 57 12/30/19 20:00 97.5 59 20 159/76 (103) 96 12/30/19 17:12 148/73 12/30/19 16:00 98.2 54 18 148/73 (98) 95 12/30/19 16:00 71 12/30/19 14:31 158/75 12/30/19 12:57 158/75 Intake and Output 12/30/19 12/31/19 19:00 07:00 Intake Total 360 ml Output Total 600 ml Balance -240 ml Intake Oral 360 ml Output Urine Total 600 ml # Bowel Movements 1 General Appearance: WD/WN HEENT: normocephalic Respiratory: rhonchi - left, rhonchi - right Cardiovascular: normal peripheral pulses, normal rate, regular rhythm Abdomen: normal bowel sounds, soft, non tender Genitourinary: normal external genitalia Extremities: no cyanosis Skin: no rash Neurologic: 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 Complete 12/28/19 21:40 Urine,Clean Catch Urine Culture - Preliminary Gram Negative Bacillus 1 Resulted 12/29/19 06:50 Rectum Received Laboratory Tests 12/31/19 04:30: White Blood Count 3.9L, Red Blood Count 4.82, Hemoglobin 15.3, Hematocrit 44.1, Mean Corpuscular Volume 91, Mean Corpuscular Hemoglobin 31.8H, Mean Corpuscular Hemoglobin Concent 34.7, Red Cell Distribution Width 11.1L, Platelet Count 131L , Mean Platelet Volume 7.5, Neutrophils (%) (Auto) 73.9, Lymphocytes (%) (Auto) 15.4L, Monocytes (%) (Auto) 10.1H, Eosinophils (%) (Auto) 0.1, Basophils (%) ( Auto) 0.6, Sodium Level 139, Potassium Level 4.4, Chloride Level 104, Carbon Dioxide Level 24, Anion Gap 11, Blood Urea Nitrogen 39H, Creatinine 1.7H, Estimat Glomerular Filtration Rate 47.3, Glucose Level 104, Calcium Level 9.0, Digoxin Level 1.1 Current Medications Medications (Trade) Dose Ordered Sig/Grayson Route PRN Reason Start Time Stop Time Status Last Admin Dose Admin Acetaminophen (Tylenol) 650 mg Q6H PRN ORAL mild pain/fever 12/29/19 08:48 01/28/20 08:47 Albuterol Sulfate (Proventil MDI) 2 puff Q4H PRN INH Shortness of Breath 12/29/19 07:30 03/28/20 07:29 Apixaban (Eliquis) 2.5 mg BID ORAL 12/30/19 18:00 03/29/20 17:59 12/31/19 09:22 Artificial Tears (Akwa-Tears) 1 drop BID BOTH EYES 12/29/19 09:00 01/28/20 08:59 12/31/19 09:24 Aspirin (Ecotrin) 81 mg DAILY ORAL 12/29/19 09:00 02/12/20 08:59 12/31/19 09:22 Atorvastatin Calcium (Lipitor) 20 mg BEDTIME ORAL 12/29/19 21:00 03/28/20 20:59 12/30/19 21:43 Azithromycin 500 mg/Dextrose 275 ml @ 275 mls/hr Q24H IV 12/29/19 21:00 01/04/20 21:59 12/30/19 21:43 Bisacodyl (Dulcolax) 10 mg PRN RECTAL 12/29/19 00:15 03/28/20 00:14 Cefepime HCl 1 gm/ Dextrose 50 ml @ 100 mls/hr EVERY 12 HOURS IVPB 12/29/19 09:00 01/05/20 08:59 12/31/19 09:24 Clonidine HCl (Catapres Tab) 0.1 mg Q4H PRN ORAL sbp>160 12/29/19 08:48 03/28/20 08:47 12/31/19 11:22 Dextrose (Dextrose 50%) 25 ml Q30M PRN IV Hypoglycemia 12/29/19 00:15 03/28/20 00:14 Dextrose (Dextrose 50%) 50 ml Q30M PRN IV Hypoglycemia 12/29/19 00:15 03/28/20 00:14 Dextrose/ Electrolytes 1,000 ml @ 75 mls/hr [id number] IV 12/29/19 01:00 01/28/20 00:59 12/30/19 17:13 Digoxin (Lanoxin) 0.125 mg DAILY ORAL 12/29/19 09:00 03/28/20 08:59 12/30/19 10:02 Diltiazem HCl (Cardizem CD) 180 mg DAILY ORAL 12/29/19 09:00 01/28/20 08:59 12/31/19 09:22 Docusate Sodium (Colace) 250 mg TWICE A DAY ORAL 12/29/19 09:00 01/28/20 08:59 12/30/19 17:12 Hydralazine HCl (Apresoline) 50 mg EVERY 8 HOURS ORAL 12/31/19 14:00 03/28/20 05:59 Isosorbide Dinitrate (Isordil) 10 mg Q6HR ORAL 12/29/19 06:00 01/28/20 05:59 12/31/19 11:22 Metoprolol Tartrate (Lopressor) 25 mg EVERY 12 HOURS ORAL 12/29/19 21:00 03/28/20 20:59 12/30/19 21:44 Mineral Oil (Fleet's Mineral Oil Enema) 133 ml DAILYPRN PRN RECTAL CONSTIPATION 12/29/19 05:58 01/28/20 05:57 Multivitamins Therapeutic (Therapeutic Multivitamin) 1 ea DAILY ORAL 12/29/19 09:00 01/28/20 08:59 12/31/19 09:22 Sorbitol (sorbitoL) 30 ml EVERY 6 HOURS ORAL 12/29/19 12:00 01/28/20 11:59 12/30/19 17:13 Assessment/Plan Problems: (1) Right lower lobe pneumonia (2) Suspected COVID-19 virus infection (3) UTI (urinary tract infection) (4) Moderate pulmonary arterial systolic hypertension (5) Renal failure (ARF), acute on chronic (6) Chronic atrial fibrillation (7) History of CVA (cerebrovascular accident) (8) HTN (hypertension) Assessment/Plan afebrile > 48 hours COVID pending EF noted, 65% vital signs stable bun/creatinine improving check cultures iv abx monitor BP and heart rate. Sen Calero MD December 31, 2019 12:32
--- NOTE | 2019-12-31 13:01 | NUR ---
*-* INSURANCE *-* ALL AVAILABLE CLINICALS HAVE BEEN FAXED TO: [facility]) [phone] Work [phone] FAX [phone] FAX
[2019-12-31] MEDS ORDERED: HydrALAZINE 50mg tab ORAL SCH (14:00)
--- NOTE | 2019-12-31 14:07 | Nephrology Progress Note ---
Assessment/Plan Problem List: (1) Renal failure (ARF), acute on chronic (2) NSTEMI (non-ST elevated myocardial infarction) (3) Right lower lobe pneumonia (4) Suspected COVID-19 virus infection (5) HTN (hypertension) (6) UTI (urinary tract infection) Assessment Acute renal failure most likely superimposed on underlying chronic kidney disease Acute hypoxic respiratory failure, pneumonia, suspected COVID-19 Sepsis Elevated troponin Suspected congestive heart failure Hypertension, hypertension urgency on admission Evidence of UTI Plan Suggestions: Blood pressure out of control we are adjusting medication Watch slow heart rate. Change PRN blood pressure medication to minoxidil Increase hydralazine dose Monitor renal parameters Continue rest Previously: Slow hydration Watch for CHF symptoms Pulmonary toilet Antibiotics Urine studies Keep the blood pressure and blood sugar in check Monitor renal parameters Per orders Per consultants Subjective ROS Limited/Unobtainable: No Constitutional: Reports: malaise, weakness Objective Objective Last 24 Hour Vital Signs Date Time Temp Pulse Resp B/P (MAP) Pulse Ox O2 Delivery O2 Flow Rate FiO2 12/31/19 13:09 199/113 12/31/19 12:00 67 12/31/19 12:00 97.9 69 20 199/113 (141) 95 12/31/19 11:22 199/113 12/31/19 11:22 199/113 12/31/19 09:22 55 156/104 12/31/19 09:00 55 156/104 12/31/19 09:00 55 12/31/19 09:00 Nasal Cannula 4.0 12/31/19 08:00 97.6 55 20 156/104 (121) 98 12/31/19 08:00 57 12/31/19 06:00 97.5 57 20 184/92 (122) 95 12/31/19 05:33 183/82 12/31/19 05:33 183/82 12/31/19 04:00 79 12/31/19 04:00 97.5 57 20 184/92 (122) 95 12/31/19 00:11 159/76 12/31/19 00:00 98.5 55 20 172/83 (112) 97 12/30/19 21:44 59 159/76 12/30/19 21:44 159/76 12/30/19 21:00 Nasal Cannula 4.0 12/30/19 20:00 57 12/30/19 20:00 97.5 59 20 159/76 (103) 96 12/30/19 17:12 148/73 12/30/19 16:00 98.2 54 18 148/73 (98) 95 12/30/19 16:00 71 12/30/19 14:31 158/75 Intake and Output 12/30/19 12/31/19 19:00 07:00 Intake Total 360 ml Output Total 600 ml Balance -240 ml Intake Oral 360 ml Output Urine Total 600 ml # Bowel Movements 1 Laboratory Tests 12/31/19 04:30: White Blood Count 3.9L, Red Blood Count 4.82, Hemoglobin 15.3, Hematocrit 44.1, Mean Corpuscular Volume 91, Mean Corpuscular Hemoglobin 31.8H, Mean Corpuscular Hemoglobin Concent 34.7, Red Cell Distribution Width 11.1L, Platelet Count 131L , Mean Platelet Volume 7.5, Neutrophils (%) (Auto) 73.9, Lymphocytes (%) (Auto) 15.4L, Monocytes (%) (Auto) 10.1H, Eosinophils (%) (Auto) 0.1, Basophils (%) ( Auto) 0.6, Sodium Level 139, Potassium Level 4.4, Chloride Level 104, Carbon Dioxide Level 24, Anion Gap 11, Blood Urea Nitrogen 39H, Creatinine 1.7H, Estimat Glomerular Filtration Rate 47.3, Glucose Level 104, Calcium Level 9.0, Digoxin Level 1.1 Height (Feet): 5 Height (Inches): 9.00 Weight (Pounds): 160 General Appearance: no apparent distress, lethargic Cardiovascular: normal rate, bradycardia Respiratory/Chest: decreased breath sounds Abdomen: distended Dano Harry MD December 31, 2019 14:06
[2019-12-31] MEDS ORDERED: Minoxidil 2.5mg tab ORAL PRN (14:10)
--- NOTE | 2019-12-31 15:59 | NUR ---
CASE MANAGEMENT:REVIEW 12/31/19 SI: SEPSIS. RLL PNA AC/CHR RENAL FAILURE. SUSPECTED COVID 19 97.9 69 20 199/113 95% ON 4L/NC WBC-3.9 BUN+39 CR+1.7 IS: IV AZITHROMYCIN Q24 IV CEFEPIME Q12 HYDRALAZINE PO Q8HRS FLOMAX PO BID ELIQUIS PO BID LIPITOR PO QHS LOPRESSOR PO Q12 ASA PO QD CARDIZEM PO QD DIGOXIN PO QD : TELEMETRY STATUS DCP: PATIENT IS FROM [facility] PLAN: TRANSFER TO [facility] ONCE COVID RESULTED CALLED [facility] AND SPOKE WITH RAIMUNDO.MADE HER AWARE OF PENDING RESULTS PER RAIMUNDO THE ASSIGNED LOBSTER CATCHER IS SATNAM
--- NOTE | 2019-12-31 16:18 | Internal Med Progress Note ---
Subjective Date of Service: December 31, 2019 Physician Name Fili Perez Attending Physician Scooter Gutierrez MD Current Medications Medications (Trade) Dose Ordered Sig/Grayson Route PRN Reason Start Time Stop Time Status Last Admin Dose Admin Acetaminophen (Tylenol) 650 mg Q6H PRN ORAL mild pain/fever 12/29/19 08:48 01/28/20 08:47 Albuterol Sulfate (Proventil MDI) 2 puff Q4H PRN INH Shortness of Breath 12/29/19 07:30 03/28/20 07:29 Apixaban (Eliquis) 2.5 mg BID ORAL 12/30/19 18:00 03/29/20 17:59 12/31/19 09:22 Artificial Tears (Akwa-Tears) 1 drop BID BOTH EYES 12/29/19 09:00 01/28/20 08:59 12/31/19 09:24 Aspirin (Ecotrin) 81 mg DAILY ORAL 12/29/19 09:00 02/12/20 08:59 12/31/19 09:22 Atorvastatin Calcium (Lipitor) 20 mg BEDTIME ORAL 12/29/19 21:00 03/28/20 20:59 12/30/19 21:43 Azithromycin 500 mg/Dextrose 275 ml @ 275 mls/hr Q24H IV 12/29/19 21:00 01/04/20 21:59 12/30/19 21:43 Bisacodyl (Dulcolax) 10 mg PRN RECTAL 12/29/19 00:15 03/28/20 00:14 Cefepime HCl 1 gm/ Dextrose 50 ml @ 100 mls/hr EVERY 12 HOURS IVPB 12/29/19 09:00 01/05/20 08:59 12/31/19 09:24 Dextrose (Dextrose 50%) 25 ml Q30M PRN IV Hypoglycemia 12/29/19 00:15 03/28/20 00:14 Dextrose (Dextrose 50%) 50 ml Q30M PRN IV Hypoglycemia 12/29/19 00:15 03/28/20 00:14 Digoxin (Lanoxin) 0.125 mg DAILY ORAL 12/29/19 09:00 03/28/20 08:59 12/30/19 10:02 Diltiazem HCl (Cardizem CD) 180 mg DAILY ORAL 12/29/19 09:00 01/28/20 08:59 12/31/19 09:22 Docusate Sodium (Colace) 250 mg TWICE A DAY ORAL 12/29/19 09:00 01/28/20 08:59 12/30/19 17:12 Hydralazine HCl (Apresoline) 100 mg EVERY 8 HOURS ORAL 12/31/19 22:00 03/28/20 05:59 Isosorbide Dinitrate (Isordil) 10 mg Q6HR ORAL 12/29/19 06:00 01/28/20 05:59 12/31/19 11:22 Metoprolol Tartrate (Lopressor) 25 mg EVERY 12 HOURS ORAL 12/29/19 21:00 03/28/20 20:59 12/30/19 21:44 Mineral Oil (Fleet's Mineral Oil Enema) 133 ml DAILYPRN PRN RECTAL CONSTIPATION 12/29/19 05:58 01/28/20 05:57 Minoxidil (Loniten) 2.5 mg Q4H PRN ORAL BP over 170 syst and 100 diast 12/31/19 14:10 03/30/20 14:09 Multivitamins Therapeutic (Therapeutic Multivitamin) 1 ea DAILY ORAL 12/29/19 09:00 01/28/20 08:59 12/31/19 09:22 Sorbitol (sorbitoL) 30 ml EVERY 6 HOURS ORAL 12/29/19 12:00 01/28/20 11:59 12/30/19 17:13 Tamsulosin HCl (Flomax) 0.4 mg BID ORAL 12/31/19 18:00 01/30/20 17:59 Allergies: Coded Allergies: No Known Allergies (Unverified , 12/28/19) ROS Limited/Unobtainable: Yes Subjective 79 YO M admitted with shortness of breath. Now respiratory failure. Cover for Int Huy-DR Gutierrez Objective Last Vital Signs Date Time Temp Pulse Resp B/P (MAP) Pulse Ox O2 Delivery O2 Flow Rate FiO2 12/31/19 13:09 199/113 12/31/19 12:00 67 12/31/19 12:00 97.9 20 95 12/31/19 09:00 Nasal Cannula 4.0 Laboratory Tests Test 12/31/19 04:30 White Blood Count 3.9 K/UL (4.8-10.8) L Red Blood Count 4.82 M/UL (4.70-6.10) Hemoglobin 15.3 G/DL (14.2-18.0) Hematocrit 44.1 % (42.0-52.0) Mean Corpuscular Volume 91 FL (80-99) Mean Corpuscular Hemoglobin 31.8 PG (27.0-31.0) H Mean Corpuscular Hemoglobin Concent 34.7 G/DL (32.0-36.0) Red Cell Distribution Width 11.1 % (11.6-14.8) L Platelet Count 131 K/UL (150-450) L Mean Platelet Volume 7.5 FL (6.5-10.1) Neutrophils (%) (Auto) 73.9 % (45.0-75.0) Lymphocytes (%) (Auto) 15.4 % (20.0-45.0) L Monocytes (%) (Auto) 10.1 % (1.0-10.0) H Eosinophils (%) (Auto) 0.1 % (0.0-3.0) Basophils (%) (Auto) 0.6 % (0.0-2.0) Sodium Level 139 MMOL/L (136-145) Potassium Level 4.4 MMOL/L (3.5-5.1) Chloride Level 104 MMOL/L (98-107) Carbon Dioxide Level 24 MMOL/L (21-32) Anion Gap 11 mmol/L (5-15) Blood Urea Nitrogen 39 mg/dL (7-18) H Creatinine 1.7 MG/DL (0.55-1.30) H Estimat Glomerular Filtration Rate 47.3 mL/min (>60) Glucose Level 104 MG/DL (74-106) Calcium Level 9.0 MG/DL (8.5-10.1) Digoxin Level 1.1 NG/ML (0.5-2.0) Microbiology Date/Time Source Procedure Growth Status 12/29/19 06:50 Nasal Nares MRSA Culture - Final NO METHICILLIN RESISTANT STAPH AUREUS... Complete 12/28/19 21:40 Urine,Clean Catch Urine Culture - Final Citrobacter Koseri Complete 12/29/19 21:00 Rectum VRE Culture - Final NO VANCOMYCIN RESISTANT ENTEROCOCCUS ... Complete 12/29/19 06:50 Rectum Received Intake and Output 12/30/19 12/31/19 19:00 07:00 Intake Total 360 ml Output Total 600 ml Balance -240 ml Intake Oral 360 ml Output Urine Total 600 ml # Bowel Movements 1 Objective PHYSICAL EXAMINATION: GENERAL: The patient awake, responsive, no acute distress. HEENT: Pupils are equal and reactive to light. Extraocular movements intact. Neck was supple. No JVD. LUNGS: Good air entry. No wheezing or rales. Decreased in bases. HEART: S1 and S2. Distant heart sounds. No murmur or gallops. ABDOMEN: Soft, nondistended, nontender. Positive bowel sounds. EXTREMITIES: No cyanosis, clubbing, edema. NEUROLOGIC: Cranial nerves II through XII grossly normal. The patient moving left side upper extremities and lower extremity. Right upper extremity contracture. Right lower extremity is decreased motor. Assessment/Plan Assessment/Plan ASSESSMENT: 1. Right lower lobe pneumonia. 2. Acute hypoxemic respiratory failure. 3. Await COVID-19 test result 4. Acute kidney injury on chronic renal insufficiency. 5. Sepsis. 6. Hypertension. 7. Dyslipidemia. 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 9. Urinary tract infection=Citrobacter Koseri Plan: 1. Admit to telemetry on the COVID-19 isolation. We will follow up with COVID-19 cultures and follow up with urine culture and blood culture. Monitor laboratory, IV hydration, and start the patient on broad-spectrum antibiotic with azithromycin and cefepime. 2. DVT prophylaxis on Lovenox. 3. Code status is DNR. 4. We will follow up with Dr. Del Rosario from Cardiology Electrophysiology, Dr. Calero, Pulmonary Critical Care, Dr. Harry from Nephrology, and Dr. Mendosa from Infectious Diseases consultations. 5. Non ST elevated myocardial infarction/elevated troponin 6. ABX=azithromycin and cefepime Fili Perez MD December 31, 2019 16:18
[2019-12-31] MEDS: Tamsulosin 0.4mg cap ORAL SCH (17:52)
--- NOTE | 2019-12-31 19:15 | NUR ---
HAND-OFF: Report given to Chen/RN, Patient is in stable condition. Endorsed plan of care.
--- NOTE | 2019-12-31 19:55 | NUR ---
NURSE NOTES: Received patient report from MALACHI Lundberg. Patient is asleep in bed. He shows no signs of distress or pain at the time. IV checked and patent. There are no signs of erythema, infiltration, or bleeding. Bed in the lowest position, call light within reach, side rails up x 3. Will continue plan of care.
[2019-12-31] MEDS: Azithromycin 500 MG in D5W 275 ML IV SCH (21:55)
[2019-12-31] MEDS: Atorvastatin 20mg tab ORAL SCH (21:55)
[2019-12-31] MEDS: HydrALAZINE 50mg tab ORAL SCH (21:57)
[2020-01-01] VITALS (7 sets, daily range): BP systolic 154–176; BP diastolic 80–90
[2020-01-01] MEDS: HydrALAZINE 50mg tab ORAL SCH ×3 (05:54→22:06)
[2020-01-01] MEDS: Sorbitol Solution UD 30ml ORAL SCH ×5 (05:54→23:56)
[2020-01-01 06:59] LABS: BASOPHILS % (AUTO) 0.8 % (0.0-2.0); EOSINOPHILS % (AUTO) 0.1 % (0.0-3.0); HEMATOCRIT 42.9 % (42.0-52.0); HEMOGLOBIN 14.8 G/DL (14.2-18.0); LYMPHOCYTES % (AUTO) 12.2 % (20.0-45.0); MEAN CORPUSCULAR VOLUME 91 FL (80-99); MONOCYTES % (AUTO) 12.8 % (1.0-10.0); NEUTROPHILS % (AUTO) 74.1 % (45.0-75.0); PLATELET COUNT 154 K/UL (150-450); RED BLOOD COUNT 4.74 M/UL (4.70-6.10); WHITE BLOOD COUNT 4.4 K/UL (4.8-10.8)
--- NOTE | 2020-01-01 07:36 | NUR ---
HAND-OFF: Report given to MALACHI Calhoun and MALACHI Park. Patient shows no signs of distress or pain at the time. Endorsed plan of care.
[2020-01-01 07:48] LABS: ALANINE AMINOTRANSFERASE 53 U/L (12-78); ALBUMIN 2.4 G/DL (3.4-5.0); ALBUMIN/GLOBULIN RATIO 0.5 (1.0-2.7); ALKALINE PHOSPHATASE 121 U/L (46-116); ANION GAP 11 mmol/L (5-15); ASPARTATE AMINO TRANSFERASE 68 U/L (15-37); BILIRUBIN,TOTAL 1.3 MG/DL (0.2-1.0); BLOOD UREA NITROGEN 39 mg/dL (7-18); CALCIUM 8.7 MG/DL (8.5-10.1); CARBON DIOXIDE 22 MMOL/L (21-32); CHLORIDE 106 MMOL/L (98-107); CREATININE 1.6 MG/DL (0.55-1.30); PHOSPHORUS 2.2 MG/DL (2.5-4.9); POTASSIUM 3.1 MMOL/L (3.5-5.1); SODIUM 139 MMOL/L (136-145)
[2020-01-01 07:50] LABS: BILIRUBIN,DIRECT 0.8 MG/DL (0.0-0.3)
--- NOTE | 2020-01-01 07:58 | NUR ---
NURSE NOTES: Received report from MALACHI Siddiqui. Observed pt sleeping, no s/sx of acute distress. Pt breathing and unlabored in 4L NC. IV site on R AC patent and asymptomatic. Bed on lowest position, call light within reach. Will continue plan of care.
--- NOTE | 2020-01-01 08:13 | NUR ---
CASE MANAGEMENT:REVIEW 01/01/20 SI: SEPSIS. RLL PNA AC/CHR RENAL FAILURE. COVID 19 DETECTED 97.8 72 22 172/86 96% ON 4L IS: IV AZITHROMYCIN Q24 IV CEFEPIME Q12 HYDRALAZINE PO Q8HRS FLOMAX PO BID MINOXIDIL PO Q4HRS PRN ELIQUIS PO BID LIPITOR PO QHS LOPRESSOR PO Q12 ASA PO QD CARDIZEM PO QD DIGOXIN PO QD : TELEMETRY STATUS DCP: PATIENT IS FROM [facility]: CALLED [facility] T: [phone] AND SPOKE WITH TOM INFORMED TOM PATIENT WAS POSITIVE FOR COVID 19 AND ASKED IF THEY WERE INTERESTED IN TRANSFERRING THEIR PATIENT. PER TOM, A [employer] HOME STAGER HAS NOT BEEN ASSIGNED YET FOR TODAY. THIS HOME STAGER PROVIDED CALL BACK NUMBER AND REQUESTED [employer] CALL
--- NOTE | 2020-01-01 08:21 | NUR ---
TRANSFER UPDATE THIS IS A [facility] PATIENT THAT BELONGS AT [facility] CALLED [facility] T: [phone] AND SPOKE WITH TOM INFORMED [place] PATIENT WAS POSITIVE FOR COVID 19 AND ASKED IF THEY WERE INTERESTED IN TRANSFERRING THEIR PATIENT. PER TOM, A [facility] MAINTENANCE MECHANIC 2ND SHIFT HAS NOT BEEN ASSIGNED YET FOR TODAY. THIS MAINTENANCE MECHANIC 2ND SHIFT PROVIDED CALL BACK NUMBER AND REQUESTED [facility] MAINTENANCE MECHANIC 2ND SHIFT CALL WILL NEED A "STABLE FOR TRANSFER" ORDER IF [facility] WANTS THEIR PATIENT TRANSFERRED
--- NOTE | 2020-01-01 09:01 | NUR ---
NURSE NOTES: Reported troponin of 0.[address] Del Rosario.
--- NOTE | 2020-01-01 09:18 | Cardiac Electrophysiology PN ---
Assessment/Plan Assessment/Plan 1. Non-ST elevation myocardial infarction by elevated troponin. Could be due to renal failure, creatinine is 2. The EKG showed atrial fibrillation occasional PVC. Continue aspirin, Lipitor, metoprolol and Imdur. EF 65% 2. Atrial fibrillation. On Cardizem CD 180 mg daily and Digoxin and Eliquis 5 bid. Dig level 1.1 3. Hypertension, on Cardizem, Lopressor and Hydralazine 100 tid, Isordil . 4. COPD on albuterol. 5. Occasional PVCs. Echocardiogram shows ejection fraction of 65%. 6. Rule out COVID pneumonia. 7. Renal failure, creatinine of 2. DW RN Subjective Subjective Remained in atrial fib with controlled rate. Troponin mildly elevated but no CP. Being fed by sitter Objective Last 24 Hour Vital Signs Date Time Temp Pulse Resp B/P (MAP) Pulse Ox O2 Delivery O2 Flow Rate FiO2 01/01/20 08:00 97.5 80 22 154/80 (104) 96 01/01/20 06:00 97.8 72 22 172/86 (114) 96 01/01/20 05:54 172/86 01/01/20 05:54 172/86 01/01/20 04:00 97.8 72 22 172/86 (114) 96 01/01/20 04:00 65 01/01/20 00:23 176/90 01/01/20 00:00 97.5 77 21 176/90 (118) 95 01/01/20 00:00 58 12/31/19 21:57 177/90 12/31/19 21:00 59 177/90 12/31/19 21:00 Nasal Cannula 4.0 12/31/19 20:00 97.9 61 23 177/90 (119) 96 12/31/19 20:00 52 12/31/19 17:52 159/87 12/31/19 16:00 59 12/31/19 16:00 96.7 102 20 159/87 (111) 96 12/31/19 13:09 199/113 12/31/19 12:00 67 12/31/19 12:00 97.9 69 20 199/113 (141) 95 12/31/19 11:22 199/113 12/31/19 11:22 199/113 12/31/19 09:22 55 156/104 Intake and Output 12/31/19 01/01/20 19:00 07:00 Intake Total 120 ml Output Total 200 ml 400 ml Balance -80 ml -400 ml Intake Oral 120 ml Output Urine Total 200 ml 400 ml # Voids 1 # Bowel Movements 1 Laboratory Tests Test 01/01/20 06:42 White Blood Count 4.4 K/UL (4.8-10.8) L Red Blood Count 4.74 M/UL (4.70-6.10) Hemoglobin 14.8 G/DL (14.2-18.0) Hematocrit 42.9 % (42.0-52.0) Mean Corpuscular Volume 91 FL (80-99) Mean Corpuscular Hemoglobin 31.3 PG (27.0-31.0) H Mean Corpuscular Hemoglobin Concent 34.5 G/DL (32.0-36.0) Red Cell Distribution Width 11.0 % (11.6-14.8) L Platelet Count 154 K/UL (150-450) Mean Platelet Volume 6.2 FL (6.5-10.1) L Neutrophils (%) (Auto) 74.1 % (45.0-75.0) Lymphocytes (%) (Auto) 12.2 % (20.0-45.0) L Monocytes (%) (Auto) 12.8 % (1.0-10.0) H Eosinophils (%) (Auto) 0.1 % (0.0-3.0) Basophils (%) (Auto) 0.8 % (0.0-2.0) Sodium Level 139 MMOL/L (136-145) Potassium Level 3.1 MMOL/L (3.5-5.1) L Chloride Level 106 MMOL/L (98-107) Carbon Dioxide Level 22 MMOL/L (21-32) Anion Gap 11 mmol/L (5-15) Blood Urea Nitrogen 39 mg/dL (7-18) H Creatinine 1.6 MG/DL (0.55-1.30) H Estimat Glomerular Filtration Rate 50.7 mL/min (>60) Glucose Level 123 MG/DL (74-106) H Uric Acid 5.9 MG/DL (2.6-7.2) Calcium Level 8.7 MG/DL (8.5-10.1) Phosphorus Level 2.2 MG/DL (2.5-4.9) L Magnesium Level 2.3 MG/DL (1.8-2.4) Total Bilirubin 1.3 MG/DL (0.2-1.0) H Direct Bilirubin 0.8 MG/DL (0.0-0.3) H Aspartate Amino Transf (AST/SGOT) 68 U/L (15-37) H Alanine Aminotransferase (ALT/SGPT) 53 U/L (12-78) Alkaline Phosphatase 121 U/L (46-116) H Troponin I 0.147 ng/mL (0.000-0.056) C-Reactive Protein, Quantitative 12.2 mg/dL (0.00-0.90) H Pro-B-Type Natriuretic Peptide 9141 pg/mL (0-125) H Total Protein 7.0 G/DL (6.4-8.2) Albumin 2.4 G/DL (3.4-5.0) L Globulin 4.6 g/dL Albumin/Globulin Ratio 0.5 (1.0-2.7) L Digoxin Level 0.7 NG/ML (0.5-2.0) Microbiology Date/Time Source Procedure Growth Status 12/29/19 21:00 Rectum VRE Culture - Final NO VANCOMYCIN RESISTANT ENTEROCOCCUS ... Complete Objective HEAD AND NECK: Showed no JVD. LUNGS: Coarse rhonchi. CARDIOVASCULAR: Regular S1 and S2 with no gallop. ABDOMEN: Soft. EXTREMITIES: No pitting edema. Francois Del Rosario MD January 01, 2020 09:18
[2020-01-01] MEDS: Multivitamin w/Minerals tab ORAL SCH (09:26)
[2020-01-01] MEDS: Tamsulosin 0.4mg cap ORAL SCH ×2 (09:26→17:10)
[2020-01-01] MEDS: Aspirin EC 81mg tab ORAL SCH (09:26)
[2020-01-01] MEDS: Digoxin 0.125mg tab ORAL SCH (09:27)
[2020-01-01] MEDS: Eliquis 2.5mg tablet ORAL SCH ×2 (09:27→17:10)
[2020-01-01] MEDS: Docusate 250mg cap ORAL SCH ×2 (09:27→17:10)
[2020-01-01] MEDS: dilTIAZem HCl CD 180mg cap ORAL SCH (09:27)
--- NOTE | 2020-01-01 10:44 | Internal Med Progress Note ---
Subjective Date of Service: January 01, 2020 Physician Name Fili Perez Attending Physician Scooter Gutierrez MD Current Medications Medications (Trade) Dose Ordered Sig/Grayson Route PRN Reason Start Time Stop Time Status Last Admin Dose Admin Acetaminophen (Tylenol) 650 mg Q6H PRN ORAL mild pain/fever 12/29/19 08:48 01/28/20 08:47 Albuterol Sulfate (Proventil MDI) 2 puff Q4H PRN INH Shortness of Breath 12/29/19 07:30 03/28/20 07:29 Apixaban (Eliquis) 2.5 mg BID ORAL 12/30/19 18:00 03/29/20 17:59 01/01/20 09:27 Artificial Tears (Akwa-Tears) 1 drop BID BOTH EYES 12/29/19 09:00 01/28/20 08:59 01/01/20 09:28 Aspirin (Ecotrin) 81 mg DAILY ORAL 12/29/19 09:00 02/12/20 08:59 01/01/20 09:26 Atorvastatin Calcium (Lipitor) 20 mg BEDTIME ORAL 12/29/19 21:00 03/28/20 20:59 12/31/19 21:55 Azithromycin 500 mg/Dextrose 275 ml @ 275 mls/hr Q24H IV 12/29/19 21:00 01/04/20 21:59 12/31/19 21:55 Bisacodyl (Dulcolax) 10 mg PRN RECTAL 12/29/19 00:15 03/28/20 00:14 Cefepime HCl 1 gm/ Dextrose 50 ml @ 100 mls/hr EVERY 12 HOURS IVPB 12/29/19 09:00 01/05/20 08:59 01/01/20 09:28 Dextrose (Dextrose 50%) 25 ml Q30M PRN IV Hypoglycemia 12/29/19 00:15 03/28/20 00:14 Dextrose (Dextrose 50%) 50 ml Q30M PRN IV Hypoglycemia 12/29/19 00:15 03/28/20 00:14 Digoxin (Lanoxin) 0.125 mg DAILY ORAL 12/29/19 09:00 03/28/20 08:59 01/01/20 09:27 Diltiazem HCl (Cardizem CD) 180 mg DAILY ORAL 12/29/19 09:00 01/28/20 08:59 01/01/20 09:27 Docusate Sodium (Colace) 250 mg TWICE A DAY ORAL 12/29/19 09:00 01/28/20 08:59 01/01/20 09:27 Hydralazine HCl (Apresoline) 100 mg EVERY 8 HOURS ORAL 12/31/19 22:00 03/28/20 05:59 01/01/20 05:54 Isosorbide Dinitrate (Isordil) 10 mg Q6HR ORAL 12/29/19 06:00 01/28/20 05:59 01/01/20 05:54 Metoprolol Tartrate (Lopressor) 25 mg EVERY 12 HOURS ORAL 12/29/19 21:00 03/28/20 20:59 01/01/20 09:27 Mineral Oil (Fleet's Mineral Oil Enema) 133 ml DAILYPRN PRN RECTAL CONSTIPATION 12/29/19 05:58 01/28/20 05:57 Minoxidil (Loniten) 2.5 mg Q4H PRN ORAL BP over 170 syst and 100 diast 12/31/19 14:10 03/30/20 14:09 Multivitamins Therapeutic (Therapeutic Multivitamin) 1 ea DAILY ORAL 12/29/19 09:00 01/28/20 08:59 01/01/20 09:26 Potassium Chloride (K-Dur) 40 meq TWICE A DAY ORAL 01/01/20 09:00 03/31/20 08:59 01/01/20 09:27 Sorbitol (sorbitoL) 30 ml EVERY 6 HOURS ORAL 12/29/19 12:00 01/28/20 11:59 12/30/19 17:13 Tamsulosin HCl (Flomax) 0.4 mg BID ORAL 12/31/19 18:00 01/30/20 17:59 01/01/20 09:26 Allergies: Coded Allergies: No Known Allergies (Unverified , 12/28/19) ROS Limited/Unobtainable: Yes Subjective 79 YO M admitted with shortness of breath. Now respiratory failure. Cover for Int Huy-DR Gutierrez Objective Last Vital Signs Date Time Temp Pulse Resp B/P (MAP) Pulse Ox O2 Delivery O2 Flow Rate FiO2 01/01/20 09:27 80 154/80 01/01/20 08:00 97.5 22 96 12/31/19 21:00 Nasal Cannula 4.0 Laboratory Tests Test 01/01/20 06:42 White Blood Count 4.4 K/UL (4.8-10.8) L Red Blood Count 4.74 M/UL (4.70-6.10) Hemoglobin 14.8 G/DL (14.2-18.0) Hematocrit 42.9 % (42.0-52.0) Mean Corpuscular Volume 91 FL (80-99) Mean Corpuscular Hemoglobin 31.3 PG (27.0-31.0) H Mean Corpuscular Hemoglobin Concent 34.5 G/DL (32.0-36.0) Red Cell Distribution Width 11.0 % (11.6-14.8) L Platelet Count 154 K/UL (150-450) Mean Platelet Volume 6.2 FL (6.5-10.1) L Neutrophils (%) (Auto) 74.1 % (45.0-75.0) Lymphocytes (%) (Auto) 12.2 % (20.0-45.0) L Monocytes (%) (Auto) 12.8 % (1.0-10.0) H Eosinophils (%) (Auto) 0.1 % (0.0-3.0) Basophils (%) (Auto) 0.8 % (0.0-2.0) Sodium Level 139 MMOL/L (136-145) Potassium Level 3.1 MMOL/L (3.5-5.1) L Chloride Level 106 MMOL/L (98-107) Carbon Dioxide Level 22 MMOL/L (21-32) Anion Gap 11 mmol/L (5-15) Blood Urea Nitrogen 39 mg/dL (7-18) H Creatinine 1.6 MG/DL (0.55-1.30) H Estimat Glomerular Filtration Rate 50.7 mL/min (>60) Glucose Level 123 MG/DL (74-106) H Uric Acid 5.9 MG/DL (2.6-7.2) Calcium Level 8.7 MG/DL (8.5-10.1) Phosphorus Level 2.2 MG/DL (2.5-4.9) L Magnesium Level 2.3 MG/DL (1.8-2.4) Total Bilirubin 1.3 MG/DL (0.2-1.0) H Direct Bilirubin 0.8 MG/DL (0.0-0.3) H Aspartate Amino Transf (AST/SGOT) 68 U/L (15-37) H Alanine Aminotransferase (ALT/SGPT) 53 U/L (12-78) Alkaline Phosphatase 121 U/L (46-116) H Troponin I 0.147 ng/mL (0.000-0.056) C-Reactive Protein, Quantitative 12.2 mg/dL (0.00-0.90) H Pro-B-Type Natriuretic Peptide 9141 pg/mL (0-125) H Total Protein 7.0 G/DL (6.4-8.2) Albumin 2.4 G/DL (3.4-5.0) L Globulin 4.6 g/dL Albumin/Globulin Ratio 0.5 (1.0-2.7) L Digoxin Level 0.7 NG/ML (0.5-2.0) Microbiology Date/Time Source Procedure Growth Status 12/29/19 21:00 Rectum VRE Culture - Final NO VANCOMYCIN RESISTANT ENTEROCOCCUS ... Complete Intake and Output 12/31/19 01/01/20 19:00 07:00 Intake Total 120 ml Output Total 200 ml 400 ml Balance -80 ml -400 ml Intake Oral 120 ml Output Urine Total 200 ml 400 ml # Voids 1 # Bowel Movements 1 Objective PHYSICAL EXAMINATION: GENERAL: The patient awake, responsive, no acute distress. HEENT: Pupils are equal and reactive to light. Extraocular movements intact. Neck was supple. No JVD. LUNGS: Good air entry. No wheezing or rales. Decreased in bases. HEART: S1 and S2. Distant heart sounds. No murmur or gallops. ABDOMEN: Soft, nondistended, nontender. Positive bowel sounds. EXTREMITIES: No cyanosis, clubbing, edema. NEUROLOGIC: Cranial nerves II through XII grossly normal. The patient moving left side upper extremities and lower extremity. Right upper extremity contracture. Right lower extremity is decreased motor. Assessment/Plan Assessment/Plan ASSESSMENT: 1. Right lower lobe pneumonia. 2. Acute hypoxemic respiratory failure. 3. Await COVID-19 test result 4. Acute kidney injury on chronic renal insufficiency. 5. Sepsis. 6. Hypertension. 7. Dyslipidemia. 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 9. Urinary tract infection=Citrobacter Koseri Plan: 1. Admit to telemetry on the COVID-19 isolation. We will follow up with COVID-19 cultures and follow up with urine culture and blood culture. Monitor laboratory, IV hydration, and start the patient on broad-spectrum antibiotic with azithromycin and cefepime. 2. DVT prophylaxis on Lovenox. 3. Code status is DNR. 4. We will follow up with Dr. Del Rosario from Cardiology Electrophysiology, Dr. Calero, Pulmonary Critical Care, Dr. Harry from Nephrology, and Dr. Mendosa from Infectious Diseases consultations. 5. Non ST elevated myocardial infarction/elevated troponin 6. ABX=azithromycin and cefepime Fili Perez MD January 01, 2020 10:44
--- NOTE | 2020-01-01 11:48 | NUR ---
*-* INSURANCE *-* UPDATED CLINICALS AND REVIEW HAVE BEEN FAXED TO: [employer] ([facility]) [phone] Work [phone] FAX [phone] FAX
--- NOTE | 2020-01-01 12:23 | Pulmonology Progress Note ---
Subjective ROS Limited/Unobtainable: Yes Constitutional: Reports: no symptoms HEENT: Repors: no symptoms Allergies: Coded Allergies: No Known Allergies (Unverified , 12/28/19) All Systems: reviewed and negative except above Objective Last 24 Hour Vital Signs Date Time Temp Pulse Resp B/P (MAP) Pulse Ox O2 Delivery O2 Flow Rate FiO2 01/01/20 12:00 97.7 63 22 161/84 (109) 96 01/01/20 09:27 80 154/80 01/01/20 09:27 80 01/01/20 09:27 80 154/80 01/01/20 09:00 Nasal Cannula 4.0 01/01/20 08:00 97.5 80 22 154/80 (104) 96 01/01/20 07:29 66 01/01/20 06:00 97.8 72 22 172/86 (114) 96 01/01/20 05:54 172/86 01/01/20 05:54 172/86 01/01/20 04:00 97.8 72 22 172/86 (114) 96 01/01/20 04:00 65 01/01/20 00:23 176/90 01/01/20 00:00 97.5 77 21 176/90 (118) 95 01/01/20 00:00 58 12/31/19 21:57 177/90 12/31/19 21:00 59 177/90 12/31/19 21:00 Nasal Cannula 4.0 12/31/19 20:00 97.9 61 23 177/90 (119) 96 12/31/19 20:00 52 12/31/19 17:52 159/87 12/31/19 16:00 59 12/31/19 16:00 96.7 102 20 159/87 (111) 96 12/31/19 13:09 199/113 Intake and Output 12/31/19 01/01/20 19:00 07:00 Intake Total 120 ml Output Total 200 ml 400 ml Balance -80 ml -400 ml Intake Oral 120 ml Output Urine Total 200 ml 400 ml # Voids 1 # Bowel Movements 1 General Appearance: WD/WN HEENT: normocephalic Respiratory: rhonchi - left, rhonchi - right Cardiovascular: normal peripheral pulses, normal rate, regular rhythm Abdomen: normal bowel sounds, soft, non tender Genitourinary: normal external genitalia Extremities: no cyanosis Skin: no rash 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 Complete Laboratory Tests 01/01/20 06:42: White Blood Count 4.4L, Red Blood Count 4.74, Hemoglobin 14.8, Hematocrit 42.9, Mean Corpuscular Volume 91, Mean Corpuscular Hemoglobin 31.3H, Mean Corpuscular Hemoglobin Concent 34.5, Red Cell Distribution Width 11.0L, Platelet Count 154, Mean Platelet Volume 6.2L, Neutrophils (%) (Auto) 74.1, Lymphocytes (%) (Auto) 12.2L, Monocytes (%) (Auto) 12.8H, Eosinophils (%) (Auto) 0.1, Basophils (%) ( Auto) 0.8, Sodium Level 139, Potassium Level 3.1L, Chloride Level 106, Carbon Dioxide Level 22, Anion Gap 11, Blood Urea Nitrogen 39H, Creatinine 1.6H, Estimat Glomerular Filtration Rate 50.7, Glucose Level 123H, Uric Acid 5.9, Calcium Level 8.7, Phosphorus Level 2.2L, Magnesium Level 2.3, Total Bilirubin 1.3H, Direct Bilirubin 0.8H, Aspartate Amino Transf (AST/SGOT) 68H, Alanine Aminotransferase (ALT/SGPT) 53, Alkaline Phosphatase 121H, Troponin I 0.147H, C- Reactive Protein, Quantitative 12.2H, Pro-B-Type Natriuretic Peptide 9141H, Total Protein 7.0, Albumin 2.4L, Globulin 4.6, Albumin/Globulin Ratio 0.5L, Digoxin Level 0.7 Current Medications Medications (Trade) Dose Ordered Sig/Grayson Route PRN Reason Start Time Stop Time Status Last Admin Dose Admin Acetaminophen (Tylenol) 650 mg Q6H PRN ORAL mild pain/fever 12/29/19 08:48 01/28/20 08:47 Albuterol Sulfate (Proventil MDI) 2 puff Q4H PRN INH Shortness of Breath 12/29/19 07:30 03/28/20 07:29 Apixaban (Eliquis) 2.5 mg BID ORAL 12/30/19 18:00 03/29/20 17:59 01/01/20 09:27 Artificial Tears (Akwa-Tears) 1 drop BID BOTH EYES 12/29/19 09:00 01/28/20 08:59 01/01/20 09:28 Aspirin (Ecotrin) 81 mg DAILY ORAL 12/29/19 09:00 02/12/20 08:59 01/01/20 09:26 Atorvastatin Calcium (Lipitor) 20 mg BEDTIME ORAL 12/29/19 21:00 03/28/20 20:59 12/31/19 21:55 Azithromycin 500 mg/Dextrose 275 ml @ 275 mls/hr Q24H IV 12/29/19 21:00 01/04/20 21:59 12/31/19 21:55 Bisacodyl (Dulcolax) 10 mg PRN RECTAL 12/29/19 00:15 03/28/20 00:14 Cefepime HCl 1 gm/ Dextrose 50 ml @ 100 mls/hr EVERY 12 HOURS IVPB 12/29/19 09:00 01/05/20 08:59 01/01/20 09:28 Dextrose (Dextrose 50%) 25 ml Q30M PRN IV Hypoglycemia 12/29/19 00:15 03/28/20 00:14 Dextrose (Dextrose 50%) 50 ml Q30M PRN IV Hypoglycemia 12/29/19 00:15 03/28/20 00:14 Digoxin (Lanoxin) 0.125 mg DAILY ORAL 12/29/19 09:00 03/28/20 08:59 01/01/20 09:27 Diltiazem HCl (Cardizem CD) 180 mg DAILY ORAL 12/29/19 09:00 01/28/20 08:59 01/01/20 09:27 Docusate Sodium (Colace) 250 mg TWICE A DAY ORAL 12/29/19 09:00 01/28/20 08:59 01/01/20 09:27 Hydralazine HCl (Apresoline) 100 mg EVERY 8 HOURS ORAL 12/31/19 22:00 03/28/20 05:59 01/01/20 05:54 Isosorbide Dinitrate (Isordil) 10 mg Q6HR ORAL 12/29/19 06:00 01/28/20 05:59 01/01/20 05:54 Metoprolol Tartrate (Lopressor) 25 mg EVERY 12 HOURS ORAL 12/29/19 21:00 03/28/20 20:59 01/01/20 09:27 Mineral Oil (Fleet's Mineral Oil Enema) 133 ml DAILYPRN PRN RECTAL CONSTIPATION 12/29/19 05:58 01/28/20 05:57 Minoxidil (Loniten) 2.5 mg Q4H PRN ORAL BP over 170 syst and 100 diast 12/31/19 14:10 03/30/20 14:09 Multivitamins Therapeutic (Therapeutic Multivitamin) 1 ea DAILY ORAL 12/29/19 09:00 01/28/20 08:59 01/01/20 09:26 Potassium Chloride (K-Dur) 40 meq TWICE A DAY ORAL 01/01/20 09:00 03/31/20 08:59 01/01/20 09:27 Sorbitol (sorbitoL) 30 ml EVERY 6 HOURS ORAL 12/29/19 12:00 01/28/20 11:59 12/30/19 17:13 Tamsulosin HCl (Flomax) 0.4 mg BID ORAL 12/31/19 18:00 01/30/20 17:59 01/01/20 09:26 Assessment/Plan Problems: (1) Right lower lobe pneumonia (2) Suspected COVID-19 virus infection (3) UTI (urinary tract infection) (4) Moderate pulmonary arterial systolic hypertension (5) Renal failure (ARF), acute on chronic (6) Chronic atrial fibrillation (7) History of CVA (cerebrovascular accident) (8) HTN (hypertension) Assessment/Plan stable all reviewed afebrile > 48 hours COVID pending EF noted, 65% vital signs stable bun/creatinine improving check cultures, Urine Citrobacter iv abx monitor BP and heart rate. Sen Calero MD January 01, 2020 12:23
--- NOTE | 2020-01-01 12:28 | Nephrology Progress Note ---
Assessment/Plan Problem List: (1) Renal failure (ARF), acute on chronic (2) NSTEMI (non-ST elevated myocardial infarction) (3) Right lower lobe pneumonia (4) Suspected COVID-19 virus infection (5) HTN (hypertension) (6) UTI (urinary tract infection) Assessment Acute renal failure most likely superimposed on underlying chronic kidney disease Acute hypoxic respiratory failure, pneumonia, suspected COVID-19 Sepsis Elevated troponin Suspected congestive heart failure Hypertension, hypertension urgency on admission Evidence of UTI Plan Suggestions: Blood pressure out of control , will continue to adjust Watch slow heart rate. Change PRN blood pressure medication to minoxidil Increase hydralazine dose Monitor renal parameters Continue rest Previously: Slow hydration Watch for CHF symptoms Pulmonary toilet Antibiotics Urine studies Keep the blood pressure and blood sugar in check Monitor renal parameters Per orders Per consultants Subjective ROS Limited/Unobtainable: No Constitutional: Reports: malaise, weakness Objective Objective Last 24 Hour Vital Signs Date Time Temp Pulse Resp B/P (MAP) Pulse Ox O2 Delivery O2 Flow Rate FiO2 01/01/20 12:20 161/84 01/01/20 12:00 97.7 63 22 161/84 (109) 96 01/01/20 09:27 80 154/80 01/01/20 09:27 80 01/01/20 09:27 80 154/80 01/01/20 09:00 Nasal Cannula 4.0 01/01/20 08:00 97.5 80 22 154/80 (104) 96 01/01/20 07:29 66 01/01/20 06:00 97.8 72 22 172/86 (114) 96 01/01/20 05:54 172/86 01/01/20 05:54 172/86 01/01/20 04:00 97.8 72 22 172/86 (114) 96 01/01/20 04:00 65 01/01/20 00:23 176/90 01/01/20 00:00 97.5 77 21 176/90 (118) 95 01/01/20 00:00 58 12/31/19 21:57 177/90 12/31/19 21:00 59 177/90 12/31/19 21:00 Nasal Cannula 4.0 12/31/19 20:00 97.9 61 23 177/90 (119) 96 5/19/20 20:00 52 12/31/19 17:52 159/87 12/31/19 16:00 59 12/31/19 16:00 96.7 102 20 159/87 (111) 96 12/31/19 13:09 199/113 Intake and Output 12/31/19 01/01/20 19:00 07:00 Intake Total 120 ml Output Total 200 ml 400 ml Balance -80 ml -400 ml Intake Oral 120 ml Output Urine Total 200 ml 400 ml # Voids 1 # Bowel Movements 1 Laboratory Tests 01/01/20 06:42: White Blood Count 4.4L, Red Blood Count 4.74, Hemoglobin 14.8, Hematocrit 42.9, Mean Corpuscular Volume 91, Mean Corpuscular Hemoglobin 31.3H, Mean Corpuscular Hemoglobin Concent 34.5, Red Cell Distribution Width 11.0L, Platelet Count 154, Mean Platelet Volume 6.2L, Neutrophils (%) (Auto) 74.1, Lymphocytes (%) (Auto) 12.2L, Monocytes (%) (Auto) 12.8H, Eosinophils (%) (Auto) 0.1, Basophils (%) ( Auto) 0.8, Sodium Level 139, Potassium Level 3.1L, Chloride Level 106, Carbon Dioxide Level 22, Anion Gap 11, Blood Urea Nitrogen 39H, Creatinine 1.6H, Estimat Glomerular Filtration Rate 50.7, Glucose Level 123H, Uric Acid 5.9, Calcium Level 8.7, Phosphorus Level 2.2L, Magnesium Level 2.3, Total Bilirubin 1.3H, Direct Bilirubin 0.8H, Aspartate Amino Transf (AST/SGOT) 68H, Alanine Aminotransferase (ALT/SGPT) 53, Alkaline Phosphatase 121H, Troponin I 0.147H, C- Reactive Protein, Quantitative 12.2H, Pro-B-Type Natriuretic Peptide 9141H, Total Protein 7.0, Albumin 2.4L, Globulin 4.6, Albumin/Globulin Ratio 0.5L, Digoxin Level 0.7 Height (Feet): 5 Height (Inches): 9.00 Weight (Pounds): 216 General Appearance: no apparent distress, lethargic Cardiovascular: normal rate, arrhythmia Respiratory/Chest: decreased breath sounds Abdomen: distended Dano Harry MD January 01, 2020 12:28
[2020-01-01] MEDS ORDERED: Phospha 250 Neutral tab ORAL SCH (12:30)
--- NOTE | 2020-01-01 12:53 | Infectious Diseases Prog Note ---
Assessment/Plan Assessment/Plan Assessment: Severe Sepsis Pneumonia- 2ry to COVID19 Acute hypoxic respiratory failure on 4l NC -12/27 CXR: Right lower lung pneumonia. Cardiomegaly. -SARS COV2 PCR + Probable UTI -u/a wbc 30-40, nit neg, leuk +1; ucx >100k C. koseri (ward S) Bcx NTD Fever; SP No leukocytosis> mild leukopenia Thrombocytopenia ESTHER, improving Elevated AST; improving Accelerated hypertension NSTEMI HTN COPD CVA w/ residual R side weakness HLD dysphagia pneumonia DNR/DNI status SNF resident ([facility]) Plan: -COntinue CEfepime #4(abx d #12/18) for UTI -Azithromycin #/ -12/27 SP Ceftriaxone x1, IV Vancomycin x1 -f/u cx -Monitor CBC/CMP, temperatures -f/u sp cx, legionella ag urine -COVID19 isolation -aspiration precautions -Renal, pulm and cards f/u Thank you for consulting [facility]. Will continue to follow along with you. Discussed with RN, Subjective Allergies: Coded Allergies: No Known Allergies (Unverified , 12/28/19) Subjective afebrile >72hrs at 4l NC Bcx NTD Objective Vital Signs Last 24 Hour Vital Signs Date Time Temp Pulse Resp B/P (MAP) Pulse Ox O2 Delivery O2 Flow Rate FiO2 01/01/20 12:20 161/84 01/01/20 12:00 97.7 63 22 161/84 (109) 96 01/01/20 11:32 59 01/01/20 09:27 80 154/80 01/01/20 09:27 80 01/01/20 09:27 80 154/80 01/01/20 09:00 Nasal Cannula 4.0 01/01/20 08:00 97.5 80 22 154/80 (104) 96 01/01/20 07:29 66 01/01/20 06:00 97.8 72 22 172/86 (114) 96 01/01/20 05:54 172/86 01/01/20 05:54 172/86 01/01/20 04:00 97.8 72 22 172/86 (114) 96 01/01/20 04:00 65 01/01/20 00:23 176/90 01/01/20 00:00 97.5 77 21 176/90 (118) 95 01/01/20 00:00 58 12/31/19 21:57 177/90 12/31/19 21:00 59 177/90 12/31/19 21:00 Nasal Cannula 4.0 12/31/19 20:00 97.9 61 23 177/90 (119) 96 12/31/19 20:00 52 12/31/19 17:52 159/87 12/31/19 16:00 59 12/31/19 16:00 96.7 102 20 159/87 (111) 96 12/31/19 13:09 199/113 Height (Feet): 5 Height (Inches): 9.00 Weight (Pounds): 216 Objective Gen: no respiratory distress Head: normocephalic Lungs: no tachypnea or use of accessory resp muscles Abd: not distended HEENT: NC in place Microbiology Date/Time Source Procedure Growth Status 12/29/19 21:00 Rectum VRE Culture - Final NO VANCOMYCIN RESISTANT ENTEROCOCCUS ... Complete Laboratory Tests Test 01/01/20 06:42 White Blood Count 4.4 K/UL (4.8-10.8) L Red Blood Count 4.74 M/UL (4.70-6.10) Hemoglobin 14.8 G/DL (14.2-18.0) Hematocrit 42.9 % (42.0-52.0) Mean Corpuscular Volume 91 FL (80-99) Mean Corpuscular Hemoglobin 31.3 PG (27.0-31.0) H Mean Corpuscular Hemoglobin Concent 34.5 G/DL (32.0-36.0) Red Cell Distribution Width 11.0 % (11.6-14.8) L Platelet Count 154 K/UL (150-450) Mean Platelet Volume 6.2 FL (6.5-10.1) L Neutrophils (%) (Auto) 74.1 % (45.0-75.0) Lymphocytes (%) (Auto) 12.2 % (20.0-45.0) L Monocytes (%) (Auto) 12.8 % (1.0-10.0) H Eosinophils (%) (Auto) 0.1 % (0.0-3.0) Basophils (%) (Auto) 0.8 % (0.0-2.0) Sodium Level 139 MMOL/L (136-145) Potassium Level 3.1 MMOL/L (3.5-5.1) L Chloride Level 106 MMOL/L (98-107) Carbon Dioxide Level 22 MMOL/L (21-32) Anion Gap 11 mmol/L (5-15) Blood Urea Nitrogen 39 mg/dL (7-18) H Creatinine 1.6 MG/DL (0.55-1.30) H Estimat Glomerular Filtration Rate 50.7 mL/min (>60) Glucose Level 123 MG/DL (74-106) H Uric Acid 5.9 MG/DL (2.6-7.2) Calcium Level 8.7 MG/DL (8.5-10.1) Phosphorus Level 2.2 MG/DL (2.5-4.9) L Magnesium Level 2.3 MG/DL (1.8-2.4) Total Bilirubin 1.3 MG/DL (0.2-1.0) H Direct Bilirubin 0.8 MG/DL (0.0-0.3) H Aspartate Amino Transf (AST/SGOT) 68 U/L (15-37) H Alanine Aminotransferase (ALT/SGPT) 53 U/L (12-78) Alkaline Phosphatase 121 U/L (46-116) H Troponin I 0.147 ng/mL (0.000-0.056) C-Reactive Protein, Quantitative 12.2 mg/dL (0.00-0.90) H Pro-B-Type Natriuretic Peptide 9141 pg/mL (0-125) H Total Protein 7.0 G/DL (6.4-8.2) Albumin 2.4 G/DL (3.4-5.0) L Globulin 4.6 g/dL Albumin/Globulin Ratio 0.5 (1.0-2.7) L Digoxin Level 0.7 NG/ML (0.5-2.0) Current Medications Medications (Trade) Dose Ordered Sig/Grayson Route PRN Reason Start Time Stop Time Status Last Admin Dose Admin Acetaminophen (Tylenol) 650 mg Q6H PRN ORAL mild pain/fever 12/29/19 08:48 01/28/20 08:47 Albuterol Sulfate (Proventil MDI) 2 puff Q4H PRN INH Shortness of Breath 12/29/19 07:30 03/28/20 07:29 Apixaban (Eliquis) 2.5 mg BID ORAL 12/30/19 18:00 03/29/20 17:59 01/01/20 09:27 Artificial Tears (Akwa-Tears) 1 drop BID BOTH EYES 12/29/19 09:00 01/28/20 08:59 01/01/20 09:28 Aspirin (Ecotrin) 81 mg DAILY ORAL 12/29/19 09:00 02/12/20 08:59 01/01/20 09:26 Atorvastatin Calcium (Lipitor) 20 mg BEDTIME ORAL 12/29/19 21:00 03/28/20 20:59 12/31/19 21:55 Azithromycin 500 mg/Dextrose 275 ml @ 275 mls/hr Q24H IV 12/29/19 21:00 01/04/20 21:59 12/31/19 21:55 Bisacodyl (Dulcolax) 10 mg PRN RECTAL 12/29/19 00:15 03/28/20 00:14 Cefepime HCl 1 gm/ Dextrose 50 ml @ 100 mls/hr EVERY 12 HOURS IVPB 12/29/19 09:00 01/05/20 08:59 01/01/20 09:28 Dextrose (Dextrose 50%) 25 ml Q30M PRN IV Hypoglycemia 12/29/19 00:15 03/28/20 00:14 Dextrose (Dextrose 50%) 50 ml Q30M PRN IV Hypoglycemia 12/29/19 00:15 03/28/20 00:14 Digoxin (Lanoxin) 0.125 mg DAILY ORAL 12/29/19 09:00 03/28/20 08:59 01/01/20 09:27 Diltiazem HCl (Cardizem CD) 180 mg DAILY ORAL 12/29/19 09:00 01/28/20 08:59 01/01/20 09:27 Docusate Sodium (Colace) 250 mg TWICE A DAY ORAL 12/29/19 09:00 01/28/20 08:59 01/01/20 09:27 Hydralazine HCl (Apresoline) 100 mg EVERY 8 HOURS ORAL 12/31/19 22:00 03/28/20 05:59 01/01/20 05:54 Isosorbide Dinitrate (Isordil) 10 mg Q6HR ORAL 12/29/19 06:00 01/28/20 05:59 01/01/20 12:20 Metoprolol Tartrate (Lopressor) 25 mg EVERY 12 HOURS ORAL 12/29/19 21:00 03/28/20 20:59 01/01/20 09:27 Mineral Oil (Fleet's Mineral Oil Enema) 133 ml DAILYPRN PRN RECTAL CONSTIPATION 12/29/19 05:58 01/28/20 05:57 Minoxidil (Loniten) 2.5 mg Q4H PRN ORAL BP over 170 syst and 100 diast 12/31/19 14:10 03/30/20 14:09 Multivitamins Therapeutic (Therapeutic Multivitamin) 1 ea DAILY ORAL 12/29/19 09:00 01/28/20 08:59 01/01/20 09:26 Phosphorus (Phospha 250 Neutral) 500 mg ONCE ORAL 01/01/20 12:30 01/01/20 14:00 Potassium Chloride (K-Dur) 40 meq TWICE A DAY ORAL 01/01/20 09:00 03/31/20 08:59 01/01/20 09:27 Sorbitol (sorbitoL) 30 ml EVERY 6 HOURS ORAL 12/29/19 12:00 01/28/20 11:59 01/01/20 12:20 Tamsulosin HCl (Flomax) 0.4 mg BID ORAL 12/31/19 18:00 01/30/20 17:59 01/01/20 09:26 Zaida Alvarado M.D. January 01, 2020 12:53
--- NOTE | 2020-01-01 19:58 | NUR ---
HAND-OFF: Report given to MALACHI Tellez. Pt in stable condition, endorsed plan of care.
--- NOTE | 2020-01-01 20:00 | NUR ---
NURSE NOTES: Got report from [facility]. Pt in stable condition. No s/s of distress or discomfort noted. Pt resting in bed comfortably. Bed in low and locked position, call light within reach, bedside table within reach. Continue to monitor.
[2020-01-01] MEDS: Atorvastatin 20mg tab ORAL SCH (22:07)
[2020-01-01] MEDS: Azithromycin 500 MG in D5W 275 ML IV SCH (22:11)
[2020-01-02] VITALS: BP 154/80
--- NOTE | 2020-01-02 00:30 | Consultation ---
DATE OF CONSULTATION: 01/01/2020 HISTORY OF PRESENT ILLNESS: The patient is an 79-year-old male with a history of pneumonia, COPD, hypertension, stroke, right-sided hemiparesis, vascular dementia who has been admitted to the hospital from a nursing facility due to shortness of breath. The patient is in isolation to rule out COVID. The patient is well known to me from [facility]. The patient is unable to understand process, communicate rationally. PAST PSYCHIATRIC HISTORY: Significant for dementia. PAST MEDICAL HISTORY: Diabetes mellitus, hypertension, stroke, COPD, and hyperlipidemia. ALLERGIES: No known drug allergies. SUBSTANCE USE HISTORY: There is no known history of illicit drug use or alcohol. MENTAL STATUS EXAMINATION: The patient is alert and oriented times self. He has poor eye contact and was uncooperative with the evaluation. Minimally verbal. Mood is dysphoric. Affect is flat. Thought process is concrete. Thought content, no suicidal or homicidal ideation. Cognition is impaired. Insight and judgment are impaired. ASSESSMENT: Sherwood I Dementia, vascular type. Sherwood II Deferred. Sherwood III Rule out COVID-19. Sherwood IV Low. Sherwood V 20 PLAN: 1. The patient lacks capacity to make decision. Next of kin should make decision if he is in an urgent situation. 2. Discussed with the nurse. Ginna Ibarra M.D. DR: MAIRA JOB#: [id number] CC:
[2020-01-02 04:00] VITALS: BP 136/68
[2020-01-02] MEDS: Sorbitol Solution UD 30ml ORAL SCH ×3 (05:42→17:18)
[2020-01-02] MEDS: HydrALAZINE 50mg tab ORAL SCH ×3 (05:42→21:59)
[2020-01-02 06:21] LABS: BASOPHILS % (AUTO) 0.7 % (0.0-2.0); HEMATOCRIT 35.4 % (42.0-52.0); HEMOGLOBIN 12.4 G/DL (14.2-18.0); LYMPHOCYTES % (AUTO) 9.1 % (20.0-45.0); MEAN CORPUSCULAR VOLUME 90 FL (80-99); MONOCYTES % (AUTO) 15.4 % (1.0-10.0); NEUTROPHILS % (AUTO) 74.7 % (45.0-75.0); PLATELET COUNT 165 K/UL (150-450); RED BLOOD COUNT 3.94 M/UL (4.70-6.10); RED CELL DISTRIBUTION WIDTH 11.1 % (11.6-14.8); WHITE BLOOD COUNT 6.6 K/UL (4.8-10.8)
[2020-01-02 06:44] LABS: ALANINE AMINOTRANSFERASE 60 U/L (12-78); ALBUMIN 2.1 G/DL (3.4-5.0); ALBUMIN/GLOBULIN RATIO 0.5 (1.0-2.7); ANION GAP 12 mmol/L (5-15); ASPARTATE AMINO TRANSFERASE 74 U/L (15-37); BILIRUBIN,TOTAL 1.3 MG/DL (0.2-1.0); BLOOD UREA NITROGEN 39 mg/dL (7-18); CALCIUM 8.5 MG/DL (8.5-10.1); CARBON DIOXIDE 21 MMOL/L (21-32); CHLORIDE 107 MMOL/L (98-107); CREATININE 1.5 MG/DL (0.55-1.30); PHOSPHORUS 2.3 MG/DL (2.5-4.9); POTASSIUM 3.3 MMOL/L (3.5-5.1); SODIUM 140 MMOL/L (136-145)
[2020-01-02 07:04] LABS: BILIRUBIN,DIRECT 0.9 MG/DL (0.0-0.3)
--- NOTE | 2020-01-02 07:10 | NUR ---
HAND-OFF: Report given to [facility].
[2020-01-02 07:31] LABS: ALKALINE PHOSPHATASE 129 U/L (46-116)
[2020-01-02 08:00] VITALS: BP 147/67
--- NOTE | 2020-01-02 08:03 | NUR ---
NURSE NOTES: Received report from MALACHI Tellez. Observed pt sleeping, breathing even and unlabored in 4L NC, no s/sx of acute distress. IV site on R AC patent and asymptomatic. Per [employer] SUPERVISOR, pt refused to eat breakfast, will try to offer again when morning meds are due. Bed on lowest position, call light within reach. Will continue plan of care.
[2020-01-02] MEDS: dilTIAZem HCl CD 180mg cap ORAL SCH (09:00)
[2020-01-02] MEDS: Digoxin 0.125mg tab ORAL SCH (09:00)
[2020-01-02] MEDS: Aspirin EC 81mg tab ORAL SCH (09:19)
[2020-01-02] MEDS: Eliquis 2.5mg tablet ORAL SCH ×2 (09:19→17:18)
[2020-01-02] MEDS: Multivitamin w/Minerals tab ORAL SCH (09:19)
[2020-01-02] MEDS: Docusate 250mg cap ORAL SCH ×2 (09:19→17:17)
[2020-01-02] MEDS: Tamsulosin 0.4mg cap ORAL SCH ×2 (09:19→17:17)
[2020-01-02] MEDS ORDERED: Potassium Phosphate 20 MM in NS 275 ML IV ONE (10:00)
--- NOTE | 2020-01-02 10:26 | NUR ---
TRANSFER UPDATE SPOKE WITH [facility] YESTERDAY. CALLED [facility] THIS MORNING AND SPOKE WITH MANAGER INFRASTRUCTURE KAMILLA KOHLI, STAY AUTHORIZED THRU YESTERDAY 01/01/20 KAMILLA TRANSFERRED THIS [facility]ER TO [facility]. [facility] REQUESTED STABLE FOR TRANSFER ORDER TO BE FAXED TO THEM BEFORE THEY DECIDE IF THEY WANT PATIENT TRANSFERRED TO [facility] T: [phone]
--- NOTE | 2020-01-02 10:46 | Nephrology Progress Note ---
Assessment/Plan Problem List: (1) Renal failure (ARF), acute on chronic (2) NSTEMI (non-ST elevated myocardial infarction) (3) Right lower lobe pneumonia (4) Suspected COVID-19 virus infection (5) HTN (hypertension) (6) UTI (urinary tract infection) Assessment Acute renal failure most likely superimposed on underlying chronic kidney disease Acute hypoxic respiratory failure, pneumonia, suspected COVID-19 Sepsis Elevated troponin Suspected congestive heart failure Hypertension, hypertension urgency on admission Evidence of UTI Plan Blood pressure now controlled Watch slow heart rate. Adjust blood pressure medication as needed Monitor renal parameters Potassium, phosphorus, magnesium supplement as needed Previously: Slow hydration Watch for CHF symptoms Pulmonary toilet Antibiotics Urine studies Keep the blood pressure and blood sugar in check Monitor renal parameters Per orders Per consultants Subjective ROS Limited/Unobtainable: No Constitutional: Reports: malaise, weakness Objective Objective Last 24 Hour Vital Signs Date Time Temp Pulse Resp B/P (MAP) Pulse Ox O2 Delivery O2 Flow Rate FiO2 01/02/20 09:00 56 147/67 01/02/20 09:00 56 01/02/20 09:00 56 147/67 01/02/20 08:00 97.6 56 19 147/67 (93) 97 01/02/20 05:42 136/68 01/02/20 05:41 136/68 01/02/20 04:00 58 01/02/20 04:00 97.7 60 18 136/68 (90) 99 01/02/20 00:53 154/80 01/02/20 00:00 98.4 68 18 154/80 (104) 97 01/02/20 00:00 63 01/01/20 22:07 72 157/81 01/01/20 22:06 157/81 01/01/20 21:00 Nasal Cannula 4.0 01/01/20 20:00 98.1 72 18 157/81 (106) 98 01/01/20 20:00 72 01/01/20 17:10 166/81 01/01/20 16:00 99.7 53 22 166/81 (109) 96 01/01/20 15:09 68 01/01/20 14:19 161/84 01/01/20 12:20 161/84 01/01/20 12:00 97.7 63 22 161/84 (109) 96 01/01/20 11:32 59 Intake and Output 01/01/20 01/02/20 19:00 07:00 Intake Total 360 ml Balance 360 ml Intake Oral 360 ml Laboratory Tests 01/02/20 05:50: White Blood Count 6.6, Red Blood Count 3.94L, Hemoglobin 12.4L, Hematocrit 35.4L , Mean Corpuscular Volume 90, Mean Corpuscular Hemoglobin 31.5H, Mean Corpuscular Hemoglobin Concent 35.0, Red Cell Distribution Width 11.1L, Platelet Count 165, Mean Platelet Volume 6.4L, Neutrophils (%) (Auto) 74.7, Lymphocytes (%) (Auto) 9.1L, Monocytes (%) (Auto) 15.4H, Eosinophils (%) (Auto) 0.0, Basophils (%) (Auto) 0.7, Sodium Level 140, Potassium Level 3.3L, Chloride Level 107, Carbon Dioxide Level 21, Anion Gap 12, Blood Urea Nitrogen 39H, Creatinine 1.5H, Estimat Glomerular Filtration Rate 54.5, Glucose Level 126H, Uric Acid 6.3, Calcium Level 8.5, Phosphorus Level 2.3L, Magnesium Level 2.3, Total Bilirubin 1.3H, Direct Bilirubin 0.9H, Aspartate Amino Transf (AST/SGOT) 74H, Alanine Aminotransferase (ALT/SGPT) 60, Alkaline Phosphatase 129H, Troponin I 0.127H, Total Protein 6.3L, Albumin 2.1L, Globulin 4.2, Albumin/ Globulin Ratio 0.5L Height (Feet): 5 Height (Inches): 9.00 Weight (Pounds): 216 General Appearance: no apparent distress Cardiovascular: bradycardia Respiratory/Chest: decreased breath sounds Abdomen: distended Objective No change Dano Harry MD January 02, 2020 10:46
--- NOTE | 2020-01-02 11:16 | Pulmonology Progress Note ---
Subjective ROS Limited/Unobtainable: No Constitutional: Reports: no symptoms HEENT: Repors: no symptoms Cardiovascular: Reports: no symptoms Allergies: Coded Allergies: No Known Allergies (Unverified , 12/28/19) All Systems: reviewed and negative except above Objective Last 24 Hour Vital Signs Date Time Temp Pulse Resp B/P (MAP) Pulse Ox O2 Delivery O2 Flow Rate FiO2 01/02/20 09:00 Nasal Cannula 4.0 01/02/20 09:00 56 147/67 01/02/20 09:00 56 01/02/20 09:00 56 147/67 01/02/20 08:00 97.6 56 19 147/67 (93) 97 01/02/20 07:42 61 01/02/20 05:42 136/68 01/02/20 05:41 136/68 01/02/20 04:00 58 01/02/20 04:00 97.7 60 18 136/68 (90) 99 01/02/20 00:53 154/80 01/02/20 00:00 98.4 68 18 154/80 (104) 97 01/02/20 00:00 63 01/01/20 22:07 72 157/81 01/01/20 22:06 157/81 01/01/20 21:00 Nasal Cannula 4.0 01/01/20 20:00 98.1 72 18 157/81 (106) 98 01/01/20 20:00 72 01/01/20 17:10 166/81 01/01/20 16:00 99.7 53 22 166/81 (109) 96 01/01/20 15:09 68 01/01/20 14:19 161/84 01/01/20 12:20 161/84 01/01/20 12:00 97.7 63 22 161/84 (109) 96 01/01/20 11:32 59 Intake and Output 01/01/20 01/02/20 19:00 07:00 Intake Total 360 ml Balance 360 ml Intake Oral 360 ml General Appearance: WD/WN HEENT: normocephalic Respiratory: chest wall non-tender, rhonchi - left, rhonchi - right Cardiovascular: normal peripheral pulses, normal rate, regular rhythm Abdomen: normal bowel sounds, soft, non tender Genitourinary: normal external genitalia Extremities: no cyanosis Skin: no rash Neurologic: clinical assessment manager II-XII grossly normal, no motor/sensory deficits Laboratory Tests 01/02/20 05:50: White Blood Count 6.6, Red Blood Count 3.94L, Hemoglobin 12.4L, Hematocrit 35.4L , Mean Corpuscular Volume 90, Mean Corpuscular Hemoglobin 31.5H, Mean Corpuscular Hemoglobin Concent 35.0, Red Cell Distribution Width 11.1L, Platelet Count 165, Mean Platelet Volume 6.4L, Neutrophils (%) (Auto) 74.7, Lymphocytes (%) (Auto) 9.1L, Monocytes (%) (Auto) 15.4H, Eosinophils (%) (Auto) 0.0, Basophils (%) (Auto) 0.7, Sodium Level 140, Potassium Level 3.3L, Chloride Level 107, Carbon Dioxide Level 21, Anion Gap 12, Blood Urea Nitrogen 39H, Creatinine 1.5H, Estimat Glomerular Filtration Rate 54.5, Glucose Level 126H, Uric Acid 6.3, Calcium Level 8.5, Phosphorus Level 2.3L, Magnesium Level 2.3, Total Bilirubin 1.3H, Direct Bilirubin 0.9H, Aspartate Amino Transf (AST/SGOT) 74H, Alanine Aminotransferase (ALT/SGPT) 60, Alkaline Phosphatase 129H, Troponin I 0.127H, Total Protein 6.3L, Albumin 2.1L, Globulin 4.2, Albumin/ Globulin Ratio 0.5L Current Medications Medications (Trade) Dose Ordered Sig/Grayson Route PRN Reason Start Time Stop Time Status Last Admin Dose Admin Acetaminophen (Tylenol) 650 mg Q6H PRN ORAL mild pain/fever 12/29/19 08:48 01/28/20 08:47 Albuterol Sulfate (Proventil MDI) 2 puff Q4H PRN INH Shortness of Breath 12/29/19 07:30 03/28/20 07:29 Apixaban (Eliquis) 2.5 mg BID ORAL 12/30/19 18:00 03/29/20 17:59 01/02/20 09:19 Artificial Tears (Akwa-Tears) 1 drop BID BOTH EYES 12/29/19 09:00 01/28/20 08:59 01/02/20 09:20 Aspirin (Ecotrin) 81 mg DAILY ORAL 12/29/19 09:00 02/12/20 08:59 01/02/20 09:19 Atorvastatin Calcium (Lipitor) 20 mg BEDTIME ORAL 12/29/19 21:00 03/28/20 20:59 01/01/20 22:07 Azithromycin 500 mg/Dextrose 275 ml @ 275 mls/hr Q24H IV 12/29/19 21:00 01/04/20 21:59 01/01/20 22:11 Bisacodyl (Dulcolax) 10 mg PRN RECTAL 12/29/19 00:15 03/28/20 00:14 Cefepime HCl 1 gm/ Dextrose 50 ml @ 100 mls/hr EVERY 12 HOURS IVPB 12/29/19 09:00 01/05/20 08:59 01/02/20 09:20 Dextrose (Dextrose 50%) 25 ml Q30M PRN IV Hypoglycemia 12/29/19 00:15 03/28/20 00:14 Dextrose (Dextrose 50%) 50 ml Q30M PRN IV Hypoglycemia 12/29/19 00:15 03/28/20 00:14 Digoxin (Lanoxin) 0.125 mg DAILY ORAL 12/29/19 09:00 03/28/20 08:59 01/01/20 09:27 Diltiazem HCl (Cardizem CD) 180 mg DAILY ORAL 12/29/19 09:00 01/28/20 08:59 01/01/20 09:27 Docusate Sodium (Colace) 250 mg TWICE A DAY ORAL 12/29/19 09:00 01/28/20 08:59 01/02/20 09:19 Hydralazine HCl (Apresoline) 100 mg EVERY 8 HOURS ORAL 12/31/19 22:00 03/28/20 05:59 01/02/20 05:42 Isosorbide Dinitrate (Isordil) 10 mg Q6HR ORAL 12/29/19 06:00 01/28/20 05:59 01/02/20 05:41 Metoprolol Tartrate (Lopressor) 25 mg EVERY 12 HOURS ORAL 12/29/19 21:00 03/28/20 20:59 01/01/20 22:07 Mineral Oil (Fleet's Mineral Oil Enema) 133 ml DAILYPRN PRN RECTAL CONSTIPATION 12/29/19 05:58 01/28/20 05:57 Minoxidil (Loniten) 2.5 mg Q4H PRN ORAL BP over 170 syst and 100 diast 12/31/19 14:10 03/30/20 14:09 Multivitamins Therapeutic (Therapeutic Multivitamin) 1 ea DAILY ORAL 12/29/19 09:00 01/28/20 08:59 01/02/20 09:19 Potassium Phosphate 20 mm/ Sodium Chloride 281.6667 ml @ 46.944 m... ONCE ONCE IV 01/02/20 10:00 01/02/20 15:59 01/02/20 10:35 Potassium Chloride (K-Dur) 40 meq TWICE A DAY ORAL 01/01/20 09:00 03/31/20 08:59 01/02/20 09:19 Sorbitol (sorbitoL) 30 ml EVERY 6 HOURS ORAL 12/29/19 12:00 01/28/20 11:59 01/02/20 05:42 Tamsulosin HCl (Flomax) 0.4 mg BID ORAL 12/31/19 18:00 01/30/20 17:59 01/02/20 09:19 Assessment/Plan Problems: (1) 2019 novel coronavirus disease (COVID-19) (2) Right lower lobe pneumonia (3) UTI (urinary tract infection) (4) Moderate pulmonary arterial systolic hypertension (5) Renal failure (ARF), acute on chronic (6) Chronic atrial fibrillation (7) History of CVA (cerebrovascular accident) (8) HTN (hypertension) Assessment/Plan stable all reviewed afebrile > 48 hours COVID positive EF noted, 65% vital signs stable bun/creatinine improving check cultures, Urine Citrobacter iv abx monitor BP and heart rate. Sen Calero MD January 02, 2020 11:16
--- NOTE | 2020-01-02 11:44 | NUR ---
*-* INSURANCE *-* UPDATED CLINICALS AND REVIEW HAVE BEEN FAXED TO: [employer] (OURS) [phone] Work [phone] FAX [phone] FAX
[2020-01-02 12:00] VITALS: BP 140/71
--- NOTE | 2020-01-02 12:56 | Infectious Diseases Prog Note ---
Assessment/Plan Assessment/Plan Assessment: Severe Sepsis Pneumonia- 2ry to COVID19 Acute hypoxic respiratory failure on 4l NC -12/27 CXR: Right lower lung pneumonia. Cardiomegaly. -SARS COV2 PCR + Probable UTI -u/a wbc 30-40, nit neg, leuk +1; ucx >100k C. koseri (ward S) Bcx NTD Fever; SP No leukocytosis> mild leukopenia Thrombocytopenia ESTHER, improving Elevated AST; improving Accelerated hypertension NSTEMI HTN COPD CVA w/ residual R side weakness HLD dysphagia pneumonia DNR/DNI status SNF resident ([facility]) Plan: -COntinue CEfepime #5 (abx d #6/7) for UTI -12/31 SP Azithromycin #5 -12/27 SP Ceftriaxone x1, IV Vancomycin x1 -f/u cx -Monitor CBC/CMP, temperatures -f/u sp cx, legionella ag urine -COVID19 isolation -aspiration precautions -Renal, pulm and cards f/u Thank you for consulting [facility]. Will continue to follow along with you. Discussed with RN, Subjective Allergies: Coded Allergies: No Known Allergies (Unverified , 12/28/19) Subjective afebrile at 4l NC Bcx NTD Cr improving Objective Vital Signs Last 24 Hour Vital Signs Date Time Temp Pulse Resp B/P (MAP) Pulse Ox O2 Delivery O2 Flow Rate FiO2 01/02/20 12:08 140/71 01/02/20 12:00 96.5 69 20 140/71 (94) 98 01/02/20 09:00 Nasal Cannula 4.0 01/02/20 09:00 56 147/67 01/02/20 09:00 56 01/02/20 09:00 56 147/67 01/02/20 08:00 97.6 56 19 147/67 (93) 97 01/02/20 07:42 61 01/02/20 05:42 136/68 01/02/20 05:41 136/68 01/02/20 04:00 58 01/02/20 04:00 97.7 60 18 136/68 (90) 99 01/02/20 00:53 154/80 01/02/20 00:00 98.4 68 18 154/80 (104) 97 01/02/20 00:00 63 01/01/20 22:07 72 157/81 01/01/20 22:06 157/81 01/01/20 21:00 Nasal Cannula 4.0 01/01/20 20:00 98.1 72 18 157/81 (106) 98 01/01/20 20:00 72 01/01/20 17:10 166/81 01/01/20 16:00 99.7 53 22 166/81 (109) 96 01/01/20 15:09 68 01/01/20 14:19 161/84 Height (Feet): 5 Height (Inches): 9.00 Weight (Pounds): 216 Objective Gen: no respiratory distress Head: normocephalic Lungs: no tachypnea or use of accessory resp muscles Abd: not distended HEENT: NC in place Laboratory Tests Test 01/02/20 05:50 White Blood Count 6.6 K/UL (4.8-10.8) Red Blood Count 3.94 M/UL (4.70-6.10) L Hemoglobin 12.4 G/DL (14.2-18.0) L Hematocrit 35.4 % (42.0-52.0) L Mean Corpuscular Volume 90 FL (80-99) Mean Corpuscular Hemoglobin 31.5 PG (27.0-31.0) H Mean Corpuscular Hemoglobin Concent 35.0 G/DL (32.0-36.0) Red Cell Distribution Width 11.1 % (11.6-14.8) L Platelet Count 165 K/UL (150-450) Mean Platelet Volume 6.4 FL (6.5-10.1) L Neutrophils (%) (Auto) 74.7 % (45.0-75.0) Lymphocytes (%) (Auto) 9.1 % (20.0-45.0) L Monocytes (%) (Auto) 15.4 % (1.0-10.0) H Eosinophils (%) (Auto) 0.0 % (0.0-3.0) Basophils (%) (Auto) 0.7 % (0.0-2.0) Sodium Level 140 MMOL/L (136-145) Potassium Level 3.3 MMOL/L (3.5-5.1) L Chloride Level 107 MMOL/L (98-107) Carbon Dioxide Level 21 MMOL/L (21-32) Anion Gap 12 mmol/L (5-15) Blood Urea Nitrogen 39 mg/dL (7-18) H Creatinine 1.5 MG/DL (0.55-1.30) H Estimat Glomerular Filtration Rate 54.5 mL/min (>60) Glucose Level 126 MG/DL (74-106) H Uric Acid 6.3 MG/DL (2.6-7.2) Calcium Level 8.5 MG/DL (8.5-10.1) Phosphorus Level 2.3 MG/DL (2.5-4.9) L Magnesium Level 2.3 MG/DL (1.8-2.4) Total Bilirubin 1.3 MG/DL (0.2-1.0) H Direct Bilirubin 0.9 MG/DL (0.0-0.3) H Aspartate Amino Transf (AST/SGOT) 74 U/L (15-37) H Alanine Aminotransferase (ALT/SGPT) 60 U/L (12-78) Alkaline Phosphatase 129 U/L (46-116) H Troponin I 0.127 ng/mL (0.000-0.056) Total Protein 6.3 G/DL (6.4-8.2) L Albumin 2.1 G/DL (3.4-5.0) L Globulin 4.2 g/dL Albumin/Globulin Ratio 0.5 (1.0-2.7) L Current Medications Medications (Trade) Dose Ordered Sig/Grayson Route PRN Reason Start Time Stop Time Status Last Admin Dose Admin Acetaminophen (Tylenol) 650 mg Q6H PRN ORAL mild pain/fever 12/29/19 08:48 01/28/20 08:47 Albuterol Sulfate (Proventil MDI) 2 puff Q4H PRN INH Shortness of Breath 12/29/19 07:30 03/28/20 07:29 Apixaban (Eliquis) 2.5 mg BID ORAL 12/30/19 18:00 03/29/20 17:59 01/02/20 09:19 Artificial Tears (Akwa-Tears) 1 drop BID BOTH EYES 12/29/19 09:00 01/28/20 08:59 01/02/20 09:20 Aspirin (Ecotrin) 81 mg DAILY ORAL 12/29/19 09:00 02/12/20 08:59 01/02/20 09:19 Atorvastatin Calcium (Lipitor) 20 mg BEDTIME ORAL 12/29/19 21:00 03/28/20 20:59 01/01/20 22:07 Azithromycin 500 mg/Dextrose 275 ml @ 275 mls/hr Q24H IV 12/29/19 21:00 01/04/20 21:59 01/01/20 22:11 Bisacodyl (Dulcolax) 10 mg PRN RECTAL 12/29/19 00:15 03/28/20 00:14 Cefepime HCl 1 gm/ Dextrose 50 ml @ 100 mls/hr EVERY 12 HOURS IVPB 12/29/19 09:00 01/05/20 08:59 01/02/20 09:20 Dextrose (Dextrose 50%) 25 ml Q30M PRN IV Hypoglycemia 12/29/19 00:15 03/28/20 00:14 Dextrose (Dextrose 50%) 50 ml Q30M PRN IV Hypoglycemia 12/29/19 00:15 03/28/20 00:14 Digoxin (Lanoxin) 0.125 mg DAILY ORAL 12/29/19 09:00 03/28/20 08:59 01/01/20 09:27 Diltiazem HCl (Cardizem CD) 180 mg DAILY ORAL 12/29/19 09:00 01/28/20 08:59 01/01/20 09:27 Docusate Sodium (Colace) 250 mg TWICE A DAY ORAL 12/29/19 09:00 01/28/20 08:59 01/02/20 09:19 Hydralazine HCl (Apresoline) 100 mg EVERY 8 HOURS ORAL 12/31/19 22:00 03/28/20 05:59 01/02/20 05:42 Isosorbide Dinitrate (Isordil) 10 mg Q6HR ORAL 12/29/19 06:00 01/28/20 05:59 01/02/20 12:08 Metoprolol Tartrate (Lopressor) 25 mg EVERY 12 HOURS ORAL 12/29/19 21:00 03/28/20 20:59 01/01/20 22:07 Mineral Oil (Fleet's Mineral Oil Enema) 133 ml DAILYPRN PRN RECTAL CONSTIPATION 12/29/19 05:58 01/28/20 05:57 Minoxidil (Loniten) 2.5 mg Q4H PRN ORAL BP over 170 syst and 100 diast 12/31/19 14:10 03/30/20 14:09 Multivitamins Therapeutic (Therapeutic Multivitamin) 1 ea DAILY ORAL 12/29/19 09:00 01/28/20 08:59 01/02/20 09:19 Potassium Phosphate 20 mm/ Sodium Chloride 281.6667 ml @ 46.944 m... ONCE ONCE IV 01/02/20 10:00 01/02/20 15:59 01/02/20 10:35 Potassium Chloride (K-Dur) 40 meq TWICE A DAY ORAL 01/01/20 09:00 03/31/20 08:59 01/02/20 09:19 Sorbitol (sorbitoL) 30 ml EVERY 6 HOURS ORAL 12/29/19 12:00 01/28/20 11:59 01/02/20 12:08 Tamsulosin HCl (Flomax) 0.4 mg BID ORAL 12/31/19 18:00 01/30/20 17:59 01/02/20 09:19 Zaida Alvarado M.D. January 02, 2020 12:56
--- NOTE | 2020-01-02 15:20 | NUR ---
NURSE NOTES: Made Dr Del Rosario aware regarding troponin result, and regarding pt high blood pressure but low HR.
[2020-01-02 16:00] VITALS: BP 139/80
--- NOTE | 2020-01-02 16:15 | Cardiac Electrophysiology PN ---
Assessment/Plan Assessment/Plan 1. Non-ST elevation myocardial infarction by elevated troponin. Could be due to renal failure, creatinine is 2. The EKG showed atrial fibrillation occasional PVC. Continue aspirin, Lipitor, metoprolol and Imdur. EF 65% 2. Atrial fibrillation. On Cardizem CD 180 mg daily and Eliquis 5 bid. DC Digoxin for bradycardia 3. Hypertension, on Cardizem, Lopressor,Hydralazine 100 tid, Isordil . 4. COPD on albuterol. 5. Occasional PVCs. Echocardiogram shows ejection fraction of 65%. 6. Rule out COVID pneumonia. 7. Renal failure, creatinine of 2. DW RN Subjective Subjective Remained in atrial fib with scott at times.Rescheduled for Covid . HR was in 50s and cardiac meds were held. Troponin mildly elevated but no CP Objective Last 24 Hour Vital Signs Date Time Temp Pulse Resp B/P (MAP) Pulse Ox O2 Delivery O2 Flow Rate FiO2 01/02/20 16:00 96.8 70 19 139/80 (99) 97 01/02/20 14:19 140/71 01/02/20 12:08 140/71 01/02/20 12:00 96.5 69 20 140/71 (94) 98 01/02/20 11:25 55 01/02/20 09:00 Nasal Cannula 4.0 01/02/20 09:00 56 147/67 01/02/20 09:00 56 01/02/20 09:00 56 147/67 01/02/20 08:00 97.6 56 19 147/67 (93) 97 01/02/20 07:42 61 01/02/20 05:42 136/68 01/02/20 05:41 136/68 01/02/20 04:00 58 01/02/20 04:00 97.7 60 18 136/68 (90) 99 01/02/20 00:53 154/80 01/02/20 00:00 98.4 68 18 154/80 (104) 97 01/02/20 00:00 63 01/01/20 22:07 72 157/81 01/01/20 22:06 157/81 01/01/20 21:00 Nasal Cannula 4.0 01/01/20 20:00 98.1 72 18 157/81 (106) 98 01/01/20 20:00 72 01/01/20 17:10 166/81 Intake and Output 01/01/20 01/02/20 19:00 07:00 Intake Total 360 ml Balance 360 ml Intake Oral 360 ml Laboratory Tests Test 01/02/20 05:50 White Blood Count 6.6 K/UL (4.8-10.8) Red Blood Count 3.94 M/UL (4.70-6.10) L Hemoglobin 12.4 G/DL (14.2-18.0) L Hematocrit 35.4 % (42.0-52.0) L Mean Corpuscular Volume 90 FL (80-99) Mean Corpuscular Hemoglobin 31.5 PG (27.0-31.0) H Mean Corpuscular Hemoglobin Concent 35.0 G/DL (32.0-36.0) Red Cell Distribution Width 11.1 % (11.6-14.8) L Platelet Count 165 K/UL (150-450) Mean Platelet Volume 6.4 FL (6.5-10.1) L Neutrophils (%) (Auto) 74.7 % (45.0-75.0) Lymphocytes (%) (Auto) 9.1 % (20.0-45.0) L Monocytes (%) (Auto) 15.4 % (1.0-10.0) H Eosinophils (%) (Auto) 0.0 % (0.0-3.0) Basophils (%) (Auto) 0.7 % (0.0-2.0) Sodium Level 140 MMOL/L (136-145) Potassium Level 3.3 MMOL/L (3.5-5.1) L Chloride Level 107 MMOL/L (98-107) Carbon Dioxide Level 21 MMOL/L (21-32) Anion Gap 12 mmol/L (5-15) Blood Urea Nitrogen 39 mg/dL (7-18) H Creatinine 1.5 MG/DL (0.55-1.30) H Estimat Glomerular Filtration Rate 54.5 mL/min (>60) Glucose Level 126 MG/DL (74-106) H Uric Acid 6.3 MG/DL (2.6-7.2) Calcium Level 8.5 MG/DL (8.5-10.1) Phosphorus Level 2.3 MG/DL (2.5-4.9) L Magnesium Level 2.3 MG/DL (1.8-2.4) Total Bilirubin 1.3 MG/DL (0.2-1.0) H Direct Bilirubin 0.9 MG/DL (0.0-0.3) H Aspartate Amino Transf (AST/SGOT) 74 U/L (15-37) H Alanine Aminotransferase (ALT/SGPT) 60 U/L (12-78) Alkaline Phosphatase 129 U/L (46-116) H Troponin I 0.127 ng/mL (0.000-0.056) Total Protein 6.3 G/DL (6.4-8.2) L Albumin 2.1 G/DL (3.4-5.0) L Globulin 4.2 g/dL Albumin/Globulin Ratio 0.5 (1.0-2.7) L Objective HEAD AND NECK: Showed no JVD. LUNGS: Coarse rhonchi. CARDIOVASCULAR: Irregular S1 and S2 with no gallop. ABDOMEN: Soft. EXTREMITIES: No pitting edema. Francois Del Rosario MD January 02, 2020 16:15
--- NOTE | 2020-01-02 17:57 | Internal Med Progress Note ---
Subjective Date of Service: January 02, 2020 Physician Name Fili Perez Attending Physician Scooter Gutierrez MD Current Medications Medications (Trade) Dose Ordered Sig/Grayson Route PRN Reason Start Time Stop Time Status Last Admin Dose Admin Acetaminophen (Tylenol) 650 mg Q6H PRN ORAL mild pain/fever 12/29/19 08:48 01/28/20 08:47 Albuterol Sulfate (Proventil MDI) 2 puff Q4H PRN INH Shortness of Breath 12/29/19 07:30 03/28/20 07:29 Apixaban (Eliquis) 2.5 mg BID ORAL 12/30/19 18:00 03/29/20 17:59 01/02/20 17:18 Artificial Tears (Akwa-Tears) 1 drop BID BOTH EYES 12/29/19 09:00 01/28/20 08:59 01/02/20 17:18 Aspirin (Ecotrin) 81 mg DAILY ORAL 12/29/19 09:00 02/12/20 08:59 01/02/20 09:19 Atorvastatin Calcium (Lipitor) 20 mg BEDTIME ORAL 12/29/19 21:00 03/28/20 20:59 01/01/20 22:07 Bisacodyl (Dulcolax) 10 mg PRN RECTAL 12/29/19 00:15 03/28/20 00:14 Cefepime HCl 1 gm/ Dextrose 50 ml @ 100 mls/hr EVERY 12 HOURS IVPB 12/29/19 09:00 01/05/20 08:59 01/02/20 09:20 Dextrose (Dextrose 50%) 25 ml Q30M PRN IV Hypoglycemia 12/29/19 00:15 03/28/20 00:14 Dextrose (Dextrose 50%) 50 ml Q30M PRN IV Hypoglycemia 12/29/19 00:15 03/28/20 00:14 Diltiazem HCl (Cardizem CD) 180 mg DAILY ORAL 12/29/19 09:00 01/28/20 08:59 01/01/20 09:27 Docusate Sodium (Colace) 250 mg TWICE A DAY ORAL 12/29/19 09:00 01/28/20 08:59 01/02/20 17:17 Hydralazine HCl (Apresoline) 100 mg EVERY 8 HOURS ORAL 12/31/19 22:00 03/28/20 05:59 01/02/20 14:19 Isosorbide Dinitrate (Isordil) 10 mg Q6HR ORAL 12/29/19 06:00 01/28/20 05:59 01/02/20 17:17 Metoprolol Tartrate (Lopressor) 25 mg EVERY 12 HOURS ORAL 12/29/19 21:00 03/28/20 20:59 01/01/20 22:07 Mineral Oil (Fleet's Mineral Oil Enema) 133 ml DAILYPRN PRN RECTAL CONSTIPATION 12/29/19 05:58 01/28/20 05:57 Minoxidil (Loniten) 2.5 mg Q4H PRN ORAL BP over 170 syst and 100 diast 12/31/19 14:10 03/30/20 14:09 Multivitamins Therapeutic (Therapeutic Multivitamin) 1 ea DAILY ORAL 12/29/19 09:00 01/28/20 08:59 01/02/20 09:19 Potassium Chloride (K-Dur) 40 meq TWICE A DAY ORAL 01/01/20 09:00 03/31/20 08:59 01/02/20 17:17 Sorbitol (sorbitoL) 30 ml EVERY 6 HOURS ORAL 12/29/19 12:00 01/28/20 11:59 01/02/20 17:18 Tamsulosin HCl (Flomax) 0.4 mg BID ORAL 12/31/19 18:00 01/30/20 17:59 01/02/20 17:17 Allergies: Coded Allergies: No Known Allergies (Unverified , 12/28/19) Subjective 79 YO M admitted with shortness of breath. Now COVID 19 pneumonia. Cover for Int Med-DR Gutierrez Objective Last Vital Signs Date Time Temp Pulse Resp B/P (MAP) Pulse Ox O2 Delivery O2 Flow Rate FiO2 01/02/20 17:17 139/80 01/02/20 16:00 96.8 70 19 97 01/02/20 09:00 Nasal Cannula 4.0 Laboratory Tests Test 01/02/20 05:50 White Blood Count 6.6 K/UL (4.8-10.8) Red Blood Count 3.94 M/UL (4.70-6.10) L Hemoglobin 12.4 G/DL (14.2-18.0) L Hematocrit 35.4 % (42.0-52.0) L Mean Corpuscular Volume 90 FL (80-99) Mean Corpuscular Hemoglobin 31.5 PG (27.0-31.0) H Mean Corpuscular Hemoglobin Concent 35.0 G/DL (32.0-36.0) Red Cell Distribution Width 11.1 % (11.6-14.8) L Platelet Count 165 K/UL (150-450) Mean Platelet Volume 6.4 FL (6.5-10.1) L Neutrophils (%) (Auto) 74.7 % (45.0-75.0) Lymphocytes (%) (Auto) 9.1 % (20.0-45.0) L Monocytes (%) (Auto) 15.4 % (1.0-10.0) H Eosinophils (%) (Auto) 0.0 % (0.0-3.0) Basophils (%) (Auto) 0.7 % (0.0-2.0) Sodium Level 140 MMOL/L (136-145) Potassium Level 3.3 MMOL/L (3.5-5.1) L Chloride Level 107 MMOL/L (98-107) Carbon Dioxide Level 21 MMOL/L (21-32) Anion Gap 12 mmol/L (5-15) Blood Urea Nitrogen 39 mg/dL (7-18) H Creatinine 1.5 MG/DL (0.55-1.30) H Estimat Glomerular Filtration Rate 54.5 mL/min (>60) Glucose Level 126 MG/DL (74-106) H Uric Acid 6.3 MG/DL (2.6-7.2) Calcium Level 8.5 MG/DL (8.5-10.1) Phosphorus Level 2.3 MG/DL (2.5-4.9) L Magnesium Level 2.3 MG/DL (1.8-2.4) Total Bilirubin 1.3 MG/DL (0.2-1.0) H Direct Bilirubin 0.9 MG/DL (0.0-0.3) H Aspartate Amino Transf (AST/SGOT) 74 U/L (15-37) H Alanine Aminotransferase (ALT/SGPT) 60 U/L (12-78) Alkaline Phosphatase 129 U/L (46-116) H Troponin I 0.127 ng/mL (0.000-0.056) Total Protein 6.3 G/DL (6.4-8.2) L Albumin 2.1 G/DL (3.4-5.0) L Globulin 4.2 g/dL Albumin/Globulin Ratio 0.5 (1.0-2.7) L Intake and Output 01/01/20 01/02/20 19:00 07:00 Intake Total 360 ml Balance 360 ml Intake Oral 360 ml Objective PHYSICAL EXAMINATION: GENERAL: The patient awake, responsive, no acute distress. HEENT: Pupils are equal and reactive to light. Extraocular movements intact. Neck was supple. No JVD. LUNGS: Good air entry. No wheezing or rales. Decreased in bases. HEART: S1 and S2. Distant heart sounds. No murmur or gallops. ABDOMEN: Soft, nondistended, nontender. Positive bowel sounds. EXTREMITIES: No cyanosis, clubbing, edema. NEUROLOGIC: Cranial nerves II through XII grossly normal. The patient moving left side upper extremities and lower extremity. Right upper extremity contracture. Right lower extremity is decreased motor. Assessment/Plan Assessment/Plan ASSESSMENT: 1. Right lower lobe pneumonia. 2. Acute hypoxemic respiratory failure. 3. COVID-19 positive 4. Acute kidney injury on chronic renal insufficiency. 5. Sepsis. 6. Hypertension. 7. Dyslipidemia. 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 9. Urinary tract infection=Citrobacter Koseri 10. Non ST elevated myocardial infarction/elevated troponin Plan: 1. COVID-19 pneumonia antibiotic = azithromycin and cefepime. ID=Dr Alvarado 2. DVT prophylaxis on Lovenox. 3. Code status is DNR. 4. Dr. Del Rosario =Cardiology Electrophysiology, Dr. Calero = Pulmonary Critical Care, Dr. Harry = Nephrology, and Dr. Mendosa from Infectious Diseases consultations. 5. Non ST elevated myocardial infarction/elevated troponin 6. ABX=azithromycin and cefepime Fili Perez MD January 02, 2020 17:56
--- NOTE | 2020-01-02 19:53 | NUR ---
HAND-OFF: Report given to MALACHI Allison. Pt in stable condition, endorsed plan of care.
[2020-01-02 20:00] VITALS: BP 171/92
--- NOTE | 2020-01-02 20:00 | NUR ---
NURSE NOTES: Received report from MALACHI Madrid. Observed pt sleeping, HOB elevated for aspiration precautions. Breathing even and unlabored on 4L NC, no s/sx of acute distress. IV site on R AC patent and asymptomatic. Bed is locked, in lowest position, call light within reach. Will continue plan of care.
--- NOTE | 2020-01-02 21:00 | NUR ---
NURSE NOTES: Family member, pt's sister called and wants to speak with pt in the morning as pt is sleeping
[2020-01-02] MEDS: Atorvastatin 20mg tab ORAL SCH (21:52)
[2020-01-03] VITALS: BP 154/90
[2020-01-03] MEDS: Sorbitol Solution UD 30ml ORAL SCH ×4 (02:30→18:00)
[2020-01-03 04:00] VITALS: BP 159/82
[2020-01-03] MEDS: HydrALAZINE 50mg tab ORAL SCH ×2 (05:27→14:28)
[2020-01-03 06:37] LABS: BASOPHILS % (AUTO) 0.8 % (0.0-2.0); HEMATOCRIT 36.9 % (42.0-52.0); HEMOGLOBIN 13.1 G/DL (14.2-18.0); LYMPHOCYTES % (AUTO) 11.9 % (20.0-45.0); MEAN CORPUSCULAR VOLUME 91 FL (80-99); MONOCYTES % (AUTO) 11.1 % (1.0-10.0); NEUTROPHILS % (AUTO) 76.1 % (45.0-75.0); PLATELET COUNT 180 K/UL (150-450); RED BLOOD COUNT 4.07 M/UL (4.70-6.10); RED CELL DISTRIBUTION WIDTH 11.1 % (11.6-14.8); WHITE BLOOD COUNT 5.8 K/UL (4.8-10.8)
[2020-01-03 07:12] LABS: ALANINE AMINOTRANSFERASE 61 U/L (12-78); ALBUMIN 2.1 G/DL (3.4-5.0); ALBUMIN/GLOBULIN RATIO 0.5 (1.0-2.7); ALKALINE PHOSPHATASE 130 U/L (46-116); ANION GAP 12 mmol/L (5-15); ASPARTATE AMINO TRANSFERASE 88 U/L (15-37); BILIRUBIN,TOTAL 1.3 MG/DL (0.2-1.0); BLOOD UREA NITROGEN 40 mg/dL (7-18); CALCIUM 8.6 MG/DL (8.5-10.1); CARBON DIOXIDE 20 MMOL/L (21-32); CHLORIDE 110 MMOL/L (98-107); CREATININE 1.6 MG/DL (0.55-1.30); PHOSPHORUS 2.8 MG/DL (2.5-4.9); SODIUM 142 MMOL/L (136-145)
[2020-01-03 07:17] LABS: BILIRUBIN,DIRECT 0.5 MG/DL (0.0-0.3)
--- NOTE | 2020-01-03 07:29 | NUR ---
HAND-OFF: Report given to Demetria LY
--- NOTE | 2020-01-03 07:43 | NUR ---
NURSE NOTES: Left message for Dr Alvarado informing of pt urine - has citrobacter koseri. Informed day nurse Demetria as well.
--- NOTE | 2020-01-03 07:56 | NUR ---
NURSE NOTES: Received report from Estefany Hernandez RN. Patient stable, resting in bed with no s/sx of distress. RR even and unlabored on RA. Side rails upx2, call light within reach, bed low and locked. Will continue to monitor.
[2020-01-03 08:00] VITALS: BP 149/68
--- NOTE | 2020-01-03 09:14 | Cardiac Electrophysiology PN ---
Assessment/Plan Assessment/Plan 1. Elevated troponin. Could be due to renal failure, creatinine is 2. The EKG showed atrial fibrillation occasional PVC. Continue aspirin, Lipitor, and Imdur. EF 65% 2. Atrial fibrillation. On Cardizem CD 180 mg daily and Eliquis 5 bid. DC Digoxin and Lopressor for bradycardia 3. Hypertension, on Cardizem,Hydralazine 100 tid and Isordil . 4. COPD on albuterol. 5. Occasional PVCs. Echocardiogram shows ejection fraction of 65%. 6. Rule out COVID pneumonia. 7. Renal failure, creatinine of 2.Improved to 1.6 DW RN Subjective Subjective Remained in atrial fib with scott episodes. Covid is positive . HR was in 50s and cardiac meds were held. Troponin mildly elevated but no CP Objective Last 24 Hour Vital Signs Date Time Temp Pulse Resp B/P (MAP) Pulse Ox O2 Delivery O2 Flow Rate FiO2 01/03/20 08:00 98.2 76 18 149/68 (95) 98 01/03/20 05:27 159/82 01/03/20 05:27 159/82 01/03/20 04:00 98.1 69 18 159/82 (107) 95 01/03/20 04:00 57 01/03/20 01:46 154/90 01/03/20 00:00 98.6 90 18 154/90 (111) 96 01/03/20 00:00 Nasal Cannula 4.0 01/03/20 00:00 82 01/02/20 21:59 171/92 01/02/20 21:53 72 171/92 01/02/20 21:00 Nasal Cannula 4.0 01/02/20 20:00 86 01/02/20 20:00 98.4 84 18 171/92 (118) 98 01/02/20 17:17 139/80 01/02/20 16:00 96.8 70 19 139/80 (99) 97 01/02/20 15:29 60 01/02/20 14:19 140/71 01/02/20 12:08 140/71 01/02/20 12:00 96.5 69 20 140/71 (94) 98 01/02/20 11:25 55 Intake and Output 01/02/20 01/03/20 19:00 07:00 Intake Total 120 ml Output Total 120 ml Balance 0 ml Intake Oral 120 ml Output Urine Total 120 ml Laboratory Tests Test 01/03/20 06:20 White Blood Count 5.8 K/UL (4.8-10.8) Red Blood Count 4.07 M/UL (4.70-6.10) L Hemoglobin 13.1 G/DL (14.2-18.0) L Hematocrit 36.9 % (42.0-52.0) L Mean Corpuscular Volume 91 FL (80-99) Mean Corpuscular Hemoglobin 32.2 PG (27.0-31.0) H Mean Corpuscular Hemoglobin Concent 35.5 G/DL (32.0-36.0) Red Cell Distribution Width 11.1 % (11.6-14.8) L Platelet Count 180 K/UL (150-450) Mean Platelet Volume 6.2 FL (6.5-10.1) L Neutrophils (%) (Auto) 76.1 % (45.0-75.0) H Lymphocytes (%) (Auto) 11.9 % (20.0-45.0) L Monocytes (%) (Auto) 11.1 % (1.0-10.0) H Eosinophils (%) (Auto) 0.0 % (0.0-3.0) Basophils (%) (Auto) 0.8 % (0.0-2.0) Sodium Level 142 MMOL/L (136-145) Potassium Level 4.0 MMOL/L (3.5-5.1) Chloride Level 110 MMOL/L (98-107) H Carbon Dioxide Level 20 MMOL/L (21-32) L Anion Gap 12 mmol/L (5-15) Blood Urea Nitrogen 40 mg/dL (7-18) H Creatinine 1.6 MG/DL (0.55-1.30) H Estimat Glomerular Filtration Rate 50.7 mL/min (>60) Glucose Level 106 MG/DL (74-106) Calcium Level 8.6 MG/DL (8.5-10.1) Phosphorus Level 2.8 MG/DL (2.5-4.9) Magnesium Level 2.3 MG/DL (1.8-2.4) Total Bilirubin 1.3 MG/DL (0.2-1.0) H Direct Bilirubin 0.5 MG/DL (0.0-0.3) H Aspartate Amino Transf (AST/SGOT) 88 U/L (15-37) H Alanine Aminotransferase (ALT/SGPT) 61 U/L (12-78) Alkaline Phosphatase 130 U/L (46-116) H C-Reactive Protein, Quantitative 11.5 mg/dL (0.00-0.90) H Pro-B-Type Natriuretic Peptide 8475 pg/mL (0-125) H Total Protein 6.6 G/DL (6.4-8.2) Albumin 2.1 G/DL (3.4-5.0) L Globulin 4.5 g/dL Albumin/Globulin Ratio 0.5 (1.0-2.7) L Objective HEAD AND NECK: Showed no JVD. LUNGS: Coarse rhonchi. CARDIOVASCULAR: Irregular S1 and S2 with no gallop. ABDOMEN: Soft. EXTREMITIES: No pitting edema. Francois Del Rosario MD January 03, 2020 09:14
[2020-01-03] MEDS: Aspirin EC 81mg tab ORAL SCH (09:21)
[2020-01-03] MEDS: Docusate 250mg cap ORAL SCH ×2 (09:21→18:25)
[2020-01-03] MEDS: dilTIAZem HCl CD 180mg cap ORAL SCH (09:21)
[2020-01-03] MEDS: Eliquis 2.5mg tablet ORAL SCH ×2 (09:22→18:25)
[2020-01-03] MEDS: Multivitamin w/Minerals tab ORAL SCH (09:22)
[2020-01-03] MEDS: Tamsulosin 0.4mg cap ORAL SCH ×2 (09:22→18:26)
--- NOTE | 2020-01-03 09:36 | NUR ---
[employer]PRETER NOTE CALL MADE TO [facility] @ [phone]. S/W [place] AND INFORMED PATIENT IS STABLE FOR TRANSFER PER ORDER BY DR GUTIERREZ. PER [place] [facility] [place], SHE WILL INFORM [facility], [facility] AND WILL CALL UNIT FOR PATIENT STATUS UPON RECEIPT OF CLINICALS. CURRENT CLINICALS FAXED TO [phone].
--- NOTE | 2020-01-03 09:59 | NUR ---
INSURANCE OFFICE MANAGER NOTE CALL MADE TO PATIENTS SISTER MAYRA KOCH AND INFORMED OF ANTICIPATED TRANSFER TO [place] PER [place]. SISTER IN AGREEMENT OF TRANSFER. WILL UPDATE SISTER WHEN ADDITIONAL INFO IS AVAILABLE
--- NOTE | 2020-01-03 11:43 | Pulmonology Progress Note ---
Subjective ROS Limited/Unobtainable: No Constitutional: Reports: no symptoms HEENT: Repors: no symptoms Cardiovascular: Reports: no symptoms Allergies: Coded Allergies: No Known Allergies (Unverified , 12/28/19) All Systems: reviewed and negative except above Objective Last 24 Hour Vital Signs Date Time Temp Pulse Resp B/P (MAP) Pulse Ox O2 Delivery O2 Flow Rate FiO2 01/03/20 09:21 76 149/68 01/03/20 09:00 Nasal Cannula 4.0 01/03/20 08:00 51 01/03/20 08:00 98.2 76 18 149/68 (95) 98 01/03/20 05:27 159/82 01/03/20 05:27 159/82 01/03/20 04:00 98.1 69 18 159/82 (107) 95 01/03/20 04:00 57 01/03/20 01:46 154/90 01/03/20 00:00 98.6 90 18 154/90 (111) 96 01/03/20 00:00 Nasal Cannula 4.0 01/03/20 00:00 82 01/02/20 21:59 171/92 01/02/20 21:53 72 171/92 01/02/20 21:00 Nasal Cannula 4.0 01/02/20 20:00 86 01/02/20 20:00 98.4 84 18 171/92 (118) 98 01/02/20 17:17 139/80 01/02/20 16:00 96.8 70 19 139/80 (99) 97 01/02/20 15:29 60 01/02/20 14:19 140/71 01/02/20 12:08 140/71 01/02/20 12:00 96.5 69 20 140/71 (94) 98 Intake and Output 01/02/20 01/03/20 19:00 07:00 Intake Total 120 ml Output Total 120 ml Balance 0 ml Intake Oral 120 ml Output Urine Total 120 ml General Appearance: WD/WN HEENT: normocephalic Respiratory: chest wall non-tender, rhonchi - left, rhonchi - right Cardiovascular: normal peripheral pulses, normal rate, regular rhythm Abdomen: normal bowel sounds, soft, non tender Genitourinary: normal external genitalia Extremities: no cyanosis Skin: no rash Neurologic: electronic specialist II-XII grossly normal, no motor/sensory deficits Laboratory Tests 01/03/20 06:20: White Blood Count 5.8, Red Blood Count 4.07L, Hemoglobin 13.1L, Hematocrit 36.9L , Mean Corpuscular Volume 91, Mean Corpuscular Hemoglobin 32.2H, Mean Corpuscular Hemoglobin Concent 35.5, Red Cell Distribution Width 11.1L, Platelet Count 180, Mean Platelet Volume 6.2L, Neutrophils (%) (Auto) 76.1H, Lymphocytes (%) (Auto) 11.9L, Monocytes (%) (Auto) 11.1H, Eosinophils (%) (Auto ) 0.0, Basophils (%) (Auto) 0.8, Sodium Level 142, Potassium Level 4.0, Chloride Level 110H, Carbon Dioxide Level 20L, Anion Gap 12, Blood Urea Nitrogen 40H, Creatinine 1.6H, Estimat Glomerular Filtration Rate 50.7, Glucose Level 106, Calcium Level 8.6, Phosphorus Level 2.8, Magnesium Level 2.3, Total Bilirubin 1.3H, Direct Bilirubin 0.5H, Aspartate Amino Transf (AST/SGOT) 88H, Alanine Aminotransferase (ALT/SGPT) 61, Alkaline Phosphatase 130H, C-Reactive Protein, Quantitative 11.5H, Pro-B-Type Natriuretic Peptide 8475H, Total Protein 6.6, Albumin 2.1L, Globulin 4.5, Albumin/Globulin Ratio 0.5L Current Medications Medications (Trade) Dose Ordered Sig/Grayson Route PRN Reason Start Time Stop Time Status Last Admin Dose Admin Acetaminophen (Tylenol) 650 mg Q6H PRN ORAL mild pain/fever 12/29/19 08:48 01/28/20 08:47 Albuterol Sulfate (Proventil MDI) 2 puff Q4H PRN INH Shortness of Breath 12/29/19 07:30 03/28/20 07:29 Apixaban (Eliquis) 2.5 mg BID ORAL 12/30/19 18:00 03/29/20 17:59 01/03/20 09:22 Artificial Tears (Akwa-Tears) 1 drop BID BOTH EYES 12/29/19 09:00 01/28/20 08:59 01/03/20 09:20 Aspirin (Ecotrin) 81 mg DAILY ORAL 12/29/19 09:00 7/1/20 08:59 01/03/20 09:21 Atorvastatin Calcium (Lipitor) 20 mg BEDTIME ORAL 12/29/19 21:00 03/28/20 20:59 01/02/20 21:52 Bisacodyl (Dulcolax) 10 mg PRN RECTAL 12/29/19 00:15 03/28/20 00:14 Cefepime HCl 1 gm/ Dextrose 50 ml @ 100 mls/hr EVERY 12 HOURS IVPB 12/29/19 09:00 01/05/20 08:59 01/03/20 09:21 Dextrose (Dextrose 50%) 25 ml Q30M PRN IV Hypoglycemia 12/29/19 00:15 03/28/20 00:14 Dextrose (Dextrose 50%) 50 ml Q30M PRN IV Hypoglycemia 12/29/19 00:15 03/28/20 00:14 Diltiazem HCl (Cardizem CD) 180 mg DAILY ORAL 12/29/19 09:00 01/28/20 08:59 01/03/20 09:21 Docusate Sodium (Colace) 250 mg TWICE A DAY ORAL 12/29/19 09:00 01/28/20 08:59 01/03/20 09:21 Hydralazine HCl (Apresoline) 100 mg EVERY 8 HOURS ORAL 12/31/19 22:00 03/28/20 05:59 01/03/20 05:27 Isosorbide Dinitrate (Isordil) 10 mg Q6HR ORAL 12/29/19 06:00 01/28/20 05:59 01/03/20 05:27 Mineral Oil (Fleet's Mineral Oil Enema) 133 ml DAILYPRN PRN RECTAL CONSTIPATION 12/29/19 05:58 01/28/20 05:57 Minoxidil (Loniten) 2.5 mg Q4H PRN ORAL BP over 170 syst and 100 diast 12/31/19 14:10 03/30/20 14:09 Multivitamins Therapeutic (Therapeutic Multivitamin) 1 ea DAILY ORAL 12/29/19 09:00 01/28/20 08:59 01/03/20 09:22 Potassium Chloride (K-Dur) 40 meq TWICE A DAY ORAL 01/01/20 09:00 03/31/20 08:59 01/03/20 09:22 Sorbitol (sorbitoL) 30 ml EVERY 6 HOURS ORAL 12/29/19 12:00 01/28/20 11:59 01/03/20 02:30 Tamsulosin HCl (Flomax) 0.4 mg BID ORAL 12/31/19 18:00 01/30/20 17:59 01/03/20 09:22 Assessment/Plan Problems: (1) 2019 novel coronavirus disease (COVID-19) (2) Right lower lobe pneumonia (3) UTI (urinary tract infection) (4) Moderate pulmonary arterial systolic hypertension (5) Renal failure (ARF), acute on chronic (6) Chronic atrial fibrillation (7) History of CVA (cerebrovascular accident) (8) HTN (hypertension) Assessment/Plan stable all reviewed afebrile > 48 hours COVID positive EF noted, 65% vital signs stable bun/creatinine improving check cultures, Urine Citrobacter iv abx monitor BP and heart rate. Sen Calero MD January 03, 2020 11:43
[2020-01-03 12:00] VITALS: BP 140/68
--- NOTE | 2020-01-03 12:10 | Infectious Diseases Prog Note ---
Assessment/Plan Assessment/Plan Assessment: Severe Sepsis Pneumonia- 2ry to COVID19 Acute hypoxic respiratory failure on 4l NC -12/27 CXR: Right lower lung pneumonia. Cardiomegaly. -SARS COV2 PCR + Probable UTI -u/a wbc 30-40, nit neg, leuk +1; ucx >100k C. koseri (ward S) Bcx NTD Fever; SP No leukocytosis> mild leukopenia Thrombocytopenia ESTHER, improving Elevated AST; improving Accelerated hypertension NSTEMI HTN COPD CVA w/ residual R side weakness HLD dysphagia pneumonia DNR/DNI status SNF resident ([facility]) Plan: -COntinue CEfepime #6 (abx d #7/7) for UTI -12/31 SP Azithromycin #5 -12/27 SP Ceftriaxone x1, IV Vancomycin x1 -f/u cx -Monitor CBC/CMP, temperatures -f/u sp cx, legionella ag urine -COVID19 isolation -aspiration precautions -Renal, pulm and cards f/u Thank you for consulting [facility]. Will continue to follow along with you. Discussed with RN, Subjective Allergies: Coded Allergies: No Known Allergies (Unverified , 12/28/19) Subjective afebrile at 4l NC Bcx NTD Cr improving Objective Vital Signs Last 24 Hour Vital Signs Date Time Temp Pulse Resp B/P (MAP) Pulse Ox O2 Delivery O2 Flow Rate FiO2 01/03/20 09:21 76 149/68 01/03/20 09:00 Nasal Cannula 4.0 01/03/20 08:00 51 01/03/20 08:00 98.2 76 18 149/68 (95) 98 01/03/20 05:27 159/82 01/03/20 05:27 159/82 01/03/20 04:00 98.1 69 18 159/82 (107) 95 01/03/20 04:00 57 01/03/20 01:46 154/90 01/03/20 00:00 98.6 90 18 154/90 (111) 96 01/03/20 00:00 Nasal Cannula 4.0 01/03/20 00:00 82 01/02/20 21:59 171/92 01/02/20 21:53 72 171/92 01/02/20 21:00 Nasal Cannula 4.0 01/02/20 20:00 86 01/02/20 20:00 98.4 84 18 171/92 (118) 98 01/02/20 17:17 139/80 01/02/20 16:00 96.8 70 19 139/80 (99) 97 01/02/20 15:29 60 01/02/20 14:19 140/71 Height (Feet): 5 Height (Inches): 9.00 Weight (Pounds): 216 Objective Gen: no respiratory distress Head: normocephalic Lungs: no tachypnea or use of accessory resp muscles Abd: not distended HEENT: NC in place Laboratory Tests Test 01/03/20 06:20 White Blood Count 5.8 K/UL (4.8-10.8) Red Blood Count 4.07 M/UL (4.70-6.10) L Hemoglobin 13.1 G/DL (14.2-18.0) L Hematocrit 36.9 % (42.0-52.0) L Mean Corpuscular Volume 91 FL (80-99) Mean Corpuscular Hemoglobin 32.2 PG (27.0-31.0) H Mean Corpuscular Hemoglobin Concent 35.5 G/DL (32.0-36.0) Red Cell Distribution Width 11.1 % (11.6-14.8) L Platelet Count 180 K/UL (150-450) Mean Platelet Volume 6.2 FL (6.5-10.1) L Neutrophils (%) (Auto) 76.1 % (45.0-75.0) H Lymphocytes (%) (Auto) 11.9 % (20.0-45.0) L Monocytes (%) (Auto) 11.1 % (1.0-10.0) H Eosinophils (%) (Auto) 0.0 % (0.0-3.0) Basophils (%) (Auto) 0.8 % (0.0-2.0) Sodium Level 142 MMOL/L (136-145) Potassium Level 4.0 MMOL/L (3.5-5.1) Chloride Level 110 MMOL/L (98-107) H Carbon Dioxide Level 20 MMOL/L (21-32) L Anion Gap 12 mmol/L (5-15) Blood Urea Nitrogen 40 mg/dL (7-18) H Creatinine 1.6 MG/DL (0.55-1.30) H Estimat Glomerular Filtration Rate 50.7 mL/min (>60) Glucose Level 106 MG/DL (74-106) Calcium Level 8.6 MG/DL (8.5-10.1) Phosphorus Level 2.8 MG/DL (2.5-4.9) Magnesium Level 2.3 MG/DL (1.8-2.4) Total Bilirubin 1.3 MG/DL (0.2-1.0) H Direct Bilirubin 0.5 MG/DL (0.0-0.3) H Aspartate Amino Transf (AST/SGOT) 88 U/L (15-37) H Alanine Aminotransferase (ALT/SGPT) 61 U/L (12-78) Alkaline Phosphatase 130 U/L (46-116) H C-Reactive Protein, Quantitative 11.5 mg/dL (0.00-0.90) H Pro-B-Type Natriuretic Peptide 8475 pg/mL (0-125) H Total Protein 6.6 G/DL (6.4-8.2) Albumin 2.1 G/DL (3.4-5.0) L Globulin 4.5 g/dL Albumin/Globulin Ratio 0.5 (1.0-2.7) L Current Medications Medications (Trade) Dose Ordered Sig/Grayson Route PRN Reason Start Time Stop Time Status Last Admin Dose Admin Acetaminophen (Tylenol) 650 mg Q6H PRN ORAL mild pain/fever 12/29/19 08:48 01/28/20 08:47 Albuterol Sulfate (Proventil MDI) 2 puff Q4H PRN INH Shortness of Breath 12/29/19 07:30 03/28/20 07:29 Apixaban (Eliquis) 2.5 mg BID ORAL 12/30/19 18:00 03/29/20 17:59 01/03/20 09:22 Artificial Tears (Akwa-Tears) 1 drop BID BOTH EYES 12/29/19 09:00 01/28/20 08:59 01/03/20 09:20 Aspirin (Ecotrin) 81 mg DAILY ORAL 12/29/19 09:00 02/12/20 08:59 01/03/20 09:21 Atorvastatin Calcium (Lipitor) 20 mg BEDTIME ORAL 12/29/19 21:00 03/28/20 20:59 01/02/20 21:52 Bisacodyl (Dulcolax) 10 mg PRN RECTAL 12/29/19 00:15 03/28/20 00:14 Cefepime HCl 1 gm/ Dextrose 50 ml @ 100 mls/hr EVERY 12 HOURS IVPB 12/29/19 09:00 01/05/20 08:59 01/03/20 09:21 Dextrose (Dextrose 50%) 25 ml Q30M PRN IV Hypoglycemia 12/29/19 00:15 03/28/20 00:14 Dextrose (Dextrose 50%) 50 ml Q30M PRN IV Hypoglycemia 12/29/19 00:15 03/28/20 00:14 Diltiazem HCl (Cardizem CD) 180 mg DAILY ORAL 12/29/19 09:00 01/28/20 08:59 01/03/20 09:21 Docusate Sodium (Colace) 250 mg TWICE A DAY ORAL 12/29/19 09:00 01/28/20 08:59 01/03/20 09:21 Hydralazine HCl (Apresoline) 100 mg EVERY 8 HOURS ORAL 12/31/19 22:00 03/28/20 05:59 01/03/20 05:27 Isosorbide Dinitrate (Isordil) 10 mg Q6HR ORAL 12/29/19 06:00 01/28/20 05:59 01/03/20 05:27 Mineral Oil (Fleet's Mineral Oil Enema) 133 ml DAILYPRN PRN RECTAL CONSTIPATION 12/29/19 05:58 01/28/20 05:57 Minoxidil (Loniten) 2.5 mg Q4H PRN ORAL BP over 170 syst and 100 diast 12/31/19 14:10 03/30/20 14:09 Multivitamins Therapeutic (Therapeutic Multivitamin) 1 ea DAILY ORAL 12/29/19 09:00 01/28/20 08:59 01/03/20 09:22 Potassium Chloride (K-Dur) 40 meq TWICE A DAY ORAL 01/01/20 09:00 03/31/20 08:59 01/03/20 09:22 Sorbitol (sorbitoL) 30 ml EVERY 6 HOURS ORAL 12/29/19 12:00 01/28/20 11:59 01/03/20 02:30 Tamsulosin HCl (Flomax) 0.4 mg BID ORAL 12/31/19 18:00 01/30/20 17:59 01/03/20 09:22 Zaida Alvarado M.D. January 03, 2020 12:10
--- NOTE | 2020-01-03 12:24 | NUR ---
*-* INSURANCE *-* UPDATED CLINICALS AND REVIEW HAVE BEEN FAXED TO: [facility] ([facility]) [phone] Work [phone] FAX [phone] FAX
--- NOTE | 2020-01-03 12:47 | NUR ---
RD ASSESSMENT & RECOMMENDATIONS SEE CARE ACTIVITY FOR COMPLETE ASSESSMENT DAILY ESTIMATED NEEDS: Needs based on Cardiac, pulmonary, wounds 79kg abw 25-30 kcals/kg total kcals 1.25-1.5 g protein/kg 99-119 g total protein 25-30 mL/kg total fluid mLs NUTRITION DIAGNOSIS: Increased pro needs r/t wound healing as evidenced by non-blanching erythema sacrum,R and L gluteal cheeks.Darker skin tone without erythema or induration R ischium.Non-blanching erythema L Heel. CURRENT DIET: Low Na PO DIET RECOMMENDATIONS: rec to liberalize diet to Regular d/t poor po intake ADDITIONAL RECOMMENDATIONS: 1) HITCH TECHNICIAN eval for appropriate texture d/t h/o CVA 2) Add Ensure Enlive TID to meals 3) If tolerated: add MERRILL BID 4) Maintain calibrated bed scale wts
--- NOTE | 2020-01-03 13:35 | Nephrology Progress Note ---
Assessment/Plan Problem List: (1) Renal failure (ARF), acute on chronic (2) NSTEMI (non-ST elevated myocardial infarction) (3) Right lower lobe pneumonia (4) Suspected COVID-19 virus infection (5) HTN (hypertension) (6) UTI (urinary tract infection) Assessment Acute renal failure most likely superimposed on underlying chronic kidney disease Acute hypoxic respiratory failure, pneumonia, suspected COVID-19 Sepsis Elevated troponin Suspected congestive heart failure Hypertension, hypertension urgency on admission Evidence of UTI Plan Blood pressure now controlled Watch slow heart rate. Adjust blood pressure medication as needed Monitor renal parameters Potassium, phosphorus, magnesium supplement as needed Previously: Slow hydration Watch for CHF symptoms Pulmonary toilet Antibiotics Urine studies Keep the blood pressure and blood sugar in check Monitor renal parameters Per orders Per consultants Subjective ROS Limited/Unobtainable: No Constitutional: Reports: malaise, weakness Objective Objective Last 24 Hour Vital Signs Date Time Temp Pulse Resp B/P (MAP) Pulse Ox O2 Delivery O2 Flow Rate FiO2 01/03/20 12:46 140/68 01/03/20 12:00 98.8 60 19 140/68 (92) 96 01/03/20 09:21 76 149/68 01/03/20 09:00 Nasal Cannula 4.0 01/03/20 08:00 51 01/03/20 08:00 98.2 76 18 149/68 (95) 98 01/03/20 05:27 159/82 01/03/20 05:27 159/82 01/03/20 04:00 98.1 69 18 159/82 (107) 95 01/03/20 04:00 57 01/03/20 01:46 154/90 01/03/20 00:00 98.6 90 18 154/90 (111) 96 01/03/20 00:00 Nasal Cannula 4.0 01/03/20 00:00 82 01/02/20 21:59 171/92 01/02/20 21:53 72 171/92 01/02/20 21:00 Nasal Cannula 4.0 01/02/20 20:00 86 01/02/20 20:00 98.4 84 18 171/92 (118) 98 01/02/20 17:17 139/80 01/02/20 16:00 96.8 70 19 139/80 (99) 97 5/21/20 15:29 60 01/02/20 14:19 140/71 Intake and Output 01/02/20 01/03/20 19:00 07:00 Intake Total 120 ml Output Total 120 ml Balance 0 ml Intake Oral 120 ml Output Urine Total 120 ml Laboratory Tests 01/03/20 06:20: White Blood Count 5.8, Red Blood Count 4.07L, Hemoglobin 13.1L, Hematocrit 36.9L , Mean Corpuscular Volume 91, Mean Corpuscular Hemoglobin 32.2H, Mean Corpuscular Hemoglobin Concent 35.5, Red Cell Distribution Width 11.1L, Platelet Count 180, Mean Platelet Volume 6.2L, Neutrophils (%) (Auto) 76.1H, Lymphocytes (%) (Auto) 11.9L, Monocytes (%) (Auto) 11.1H, Eosinophils (%) (Auto ) 0.0, Basophils (%) (Auto) 0.8, Sodium Level 142, Potassium Level 4.0, Chloride Level 110H, Carbon Dioxide Level 20L, Anion Gap 12, Blood Urea Nitrogen 40H, Creatinine 1.6H, Estimat Glomerular Filtration Rate 50.7, Glucose Level 106, Calcium Level 8.6, Phosphorus Level 2.8, Magnesium Level 2.3, Total Bilirubin 1.3H, Direct Bilirubin 0.5H, Aspartate Amino Transf (AST/SGOT) 88H, Alanine Aminotransferase (ALT/SGPT) 61, Alkaline Phosphatase 130H, C-Reactive Protein, Quantitative 11.5H, Pro-B-Type Natriuretic Peptide 8475H, Total Protein 6.6, Albumin 2.1L, Globulin 4.5, Albumin/Globulin Ratio 0.5L Height (Feet): 5 Height (Inches): 9.00 Weight (Pounds): 216 General Appearance: no apparent distress, lethargic Cardiovascular: normal rate Respiratory/Chest: decreased breath sounds Abdomen: distended Objective No change Dano Harry MD January 03, 2020 13:35
--- NOTE | 2020-01-03 15:38 | Internal Med Progress Note ---
Subjective Physician Name Scooter Gutierrez Attending Physician Scooter Gutierrez MD Current Medications Medications (Trade) Dose Ordered Sig/[place] Route PRN Reason Start Time Stop Time Status Last Admin Dose Admin Acetaminophen (Tylenol) 650 mg Q6H PRN ORAL mild pain/fever 12/29/19 08:48 01/28/20 08:47 Albuterol Sulfate (Proventil MDI) 2 puff Q4H PRN INH Shortness of Breath 12/29/19 07:30 03/28/20 07:29 Apixaban (Eliquis) 2.5 mg BID ORAL 12/30/19 18:00 03/29/20 17:59 01/03/20 09:22 Artificial Tears (Akwa-Tears) 1 drop BID BOTH EYES 12/29/19 09:00 01/28/20 08:59 01/03/20 09:20 Aspirin (Ecotrin) 81 mg DAILY ORAL 12/29/19 09:00 02/12/20 08:59 01/03/20 09:21 Atorvastatin Calcium (Lipitor) 20 mg BEDTIME ORAL 12/29/19 21:00 03/28/20 20:59 01/02/20 21:52 Bisacodyl (Dulcolax) 10 mg PRN RECTAL 12/29/19 00:15 03/28/20 00:14 Cefepime HCl 1 gm/ Dextrose 50 ml @ 100 mls/hr EVERY 12 HOURS IVPB 12/29/19 09:00 01/05/20 08:59 01/03/20 09:21 Dextrose (Dextrose 50%) 25 ml Q30M PRN IV Hypoglycemia 12/29/19 00:15 03/28/20 00:14 Dextrose (Dextrose 50%) 50 ml Q30M PRN IV Hypoglycemia 12/29/19 00:15 03/28/20 00:14 Diltiazem HCl (Cardizem CD) 180 mg DAILY ORAL 12/29/19 09:00 01/28/20 08:59 01/03/20 09:21 Docusate Sodium (Colace) 250 mg TWICE A DAY ORAL 12/29/19 09:00 01/28/20 08:59 01/03/20 09:21 Hydralazine HCl (Apresoline) 100 mg EVERY 8 HOURS ORAL 12/31/19 22:00 03/28/20 05:59 01/03/20 14:28 Isosorbide Dinitrate (Isordil) 10 mg Q6HR ORAL 12/29/19 06:00 01/28/20 05:59 01/03/20 12:46 Mineral Oil (Fleet's Mineral Oil Enema) 133 ml DAILYPRN PRN RECTAL CONSTIPATION 12/29/19 05:58 01/28/20 05:57 Minoxidil (Loniten) 2.5 mg Q4H PRN ORAL BP over 170 syst and 100 diast 12/31/19 14:10 03/30/20 14:09 Multivitamins Therapeutic (Therapeutic Multivitamin) 1 ea DAILY ORAL 12/29/19 09:00 01/28/20 08:59 01/03/20 09:22 Potassium Chloride (K-Dur) 40 meq TWICE A DAY ORAL 01/01/20 09:00 03/31/20 08:59 01/03/20 09:22 Sorbitol (sorbitoL) 30 ml EVERY 6 HOURS ORAL 12/29/19 12:00 01/28/20 11:59 01/03/20 12:47 Tamsulosin HCl (Flomax) 0.4 mg BID ORAL 12/31/19 18:00 01/30/20 17:59 01/03/20 09:22 Allergies: Coded Allergies: No Known Allergies (Unverified , 12/28/19) Subjective Awake, alert, responsive, denies any chest pain, decreased shortness of breath. In [place] [id number] isolation room Objective Last Vital Signs Date Time Temp Pulse Resp B/P (MAP) Pulse Ox O2 Delivery O2 Flow Rate FiO2 01/03/20 14:28 140/68 01/03/20 12:00 98.8 60 19 96 01/03/20 09:00 Nasal Cannula 4.0 Laboratory Tests Test 01/03/20 06:20 White Blood Count 5.8 K/UL (4.8-10.8) Red Blood Count 4.07 M/UL (4.70-6.10) L Hemoglobin 13.1 G/DL (14.2-18.0) L Hematocrit 36.9 % (42.0-52.0) L Mean Corpuscular Volume 91 FL (80-99) Mean Corpuscular Hemoglobin 32.2 PG (27.0-31.0) H Mean Corpuscular Hemoglobin Concent 35.5 G/DL (32.0-36.0) Red Cell Distribution Width 11.1 % (11.6-14.8) L Platelet Count 180 K/UL (150-450) Mean Platelet Volume 6.2 FL (6.5-10.1) L Neutrophils (%) (Auto) 76.1 % (45.0-75.0) H Lymphocytes (%) (Auto) 11.9 % (20.0-45.0) L Monocytes (%) (Auto) 11.1 % (1.0-10.0) H Eosinophils (%) (Auto) 0.0 % (0.0-3.0) Basophils (%) (Auto) 0.8 % (0.0-2.0) Sodium Level 142 MMOL/L (136-145) Potassium Level 4.0 MMOL/L (3.5-5.1) Chloride Level 110 MMOL/L (98-107) H Carbon Dioxide Level 20 MMOL/L (21-32) L Anion Gap 12 mmol/L (5-15) Blood Urea Nitrogen 40 mg/dL (7-18) H Creatinine 1.6 MG/DL (0.55-1.30) H Estimat Glomerular Filtration Rate 50.7 mL/min (>60) Glucose Level 106 MG/DL (74-106) Calcium Level 8.6 MG/DL (8.5-10.1) Phosphorus Level 2.8 MG/DL (2.5-4.9) Magnesium Level 2.3 MG/DL (1.8-2.4) Total Bilirubin 1.3 MG/DL (0.2-1.0) H Direct Bilirubin 0.5 MG/DL (0.0-0.3) H Aspartate Amino Transf (AST/SGOT) 88 U/L (15-37) H Alanine Aminotransferase (ALT/SGPT) 61 U/L (12-78) Alkaline Phosphatase 130 U/L (46-116) H C-Reactive Protein, Quantitative 11.5 mg/dL (0.00-0.90) H Pro-B-Type Natriuretic Peptide 8475 pg/mL (0-125) H Total Protein 6.6 G/DL (6.4-8.2) Albumin 2.1 G/DL (3.4-5.0) L Globulin 4.5 g/dL Albumin/Globulin Ratio 0.5 (1.0-2.7) L Intake and Output 01/02/20 01/03/20 19:00 07:00 Intake Total 120 ml Output Total 120 ml Balance 0 ml Intake Oral 120 ml Output Urine Total 120 ml Objective GENERAL: The patient awake, responsive, no acute distress. HEENT: Pupils are equal and reactive to light. Extraocular movements intact. Neck was supple. No JVD. LUNGS: Good air entry. No wheezing or rales. Decreased in bases. HEART: S1 and S2. Distant heart sounds. No murmur or gallops. ABDOMEN: Soft, nondistended, nontender. Positive bowel sounds. EXTREMITIES: No cyanosis, clubbing, edema. NEUROLOGIC: Cranial nerves II through XII grossly normal. The patient moving left side upper extremities and lower extremity. Right upper extremity contracture. Right lower extremity is decreased motor. Assessment/Plan Assessment/Plan ASSESSMENT: 1. Right lower lobe pneumonia. 2. Acute hypoxemic respiratory failure. 3. COVID-19 Pneumonia 4. Acute kidney injury on chronic renal insufficiency. 5. Acute Citrobacter UTI. 6. Hypertension. 7. Dyslipidemia. 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 Plan: in COVID-19 isolation. We will follow up with urine culture and blood culture. Monitor laboratory, Abx: cefepime. DVT prophylaxis: Eliquis Code status is DNR. Dr. Del Rosario from Cardiology Electrophysiology, Dr. Calero, Pulmonary Critical Care, Dr. Harry from Nephrology Dr. Mendosa from Infectious Diseases consultations. Transfer to [facility] soon. Scooter Gutierrez MD January 03, 2020 15:38
[2020-01-03 16:00] VITALS: BP 139/77
[2020-01-03 18:26] VITALS: BP 139/77
--- NOTE | 2020-01-03 18:51 | NUR ---
NURSE NOTES: Patient discharged to [facility]. Report given to Carlotta. Patient stable. No belongings with patient. IV flushed and patent to RT AC 20g. Discharge packet given to ambulance personnel. Next of kin called and notified of discharge. 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
--- NOTE | 2020-01-05 22:37 | Discharge Summary ---
Discharge Summary Discharge Summary _ DATE OF ADMISSION: 12/28/2019 DATE OF DISCHARGE: 01/03/2020 ATTENDING MD: Dr. Scooter Gutierrez CONSULTANTS: Dr. Dano Ibarra BRIEF HOSPITAL COURSE: Patient is an 79-year-old -[place] gentleman with past medical history significant for pneumonia, COPD, hypertension, dyslipidemia, prior history of stroke with right-sided hemiparesis, presented to the emergency department from nursing facility after he was noted to have shortness of breath. The patient had cough and chills. No fever was reported. After initial evaluation at the emergency department, patient was admitted due to pneumonia, possible COVID19 infection, as well as COPD. During evaluation at the emergency department, patient was febrile with T-max 104. Blood work showed WBC of 6.3, hemoglobin 13, hematocrit 42, platelet 124. Sodium 146, potassium 3.9, chloride 108, bicarbonate 25, BUN 48, creatinine 2.0, calcium 8.6, GFR 39, glucose 100. Total bilirubin 1.9, direct bilirubin 1.1, AST of 60, ALT of 50. Troponin was 0.151. proBNP of 4086. Albumin 2.8. Lipase 256. Digoxin 1.7. Urinalysis showed +3 protein, +3 blood, +2 leukocytes , 40-60 RBCs, 30-40 WBC and many bacteria. D-dimer was 2.57. Ferritin 1,398. CRP 27.8. Chest x-ray showed right lower lobe pneumonia and cardiomegaly. Patient was pancultured. SARS-CoV-2 PCR sent. Patient was placed on respiratory isolation. Patient was subsequently admitted to telemetry floor. He was given slow IV hydration. He was placed on O2 support. He was given MDI Proventil as needed. He was continued on long-term medications. He was placed on low-dose subcutaneous Lovenox for DVT prophylaxis. Kidney function was monitored. He was given acetaminophen as needed for fever. He presented with elevated troponin. EKG showed atrial fibrillation with occasional PVCs. He was given aspirin and Lipitor. Metoprolol was added to his medical regimen. He was continued on Imdur. Echocardiogram showed ejection fraction of 65%. Cardiac enzymes were monitored. Patient had elevated troponin level, possibly non-ST elevated SC, however, could also be due to renal failure since creatinine is 2. Atrial fibrillation was controlled in Cardizem CD 180 mg daily and digoxin. Lovenox was eventually discontinued and patient was started on Eliquis 5 mg twice daily. He was given empiric antibiotics IV vancomycin, cefepime, and azithromycin. He eventually defervesced. Patient has severe sepsis and pneumonia with high suspicion for COVID-19. He required high flow O2 at 4 L nasal cannula. Kidney function was improving. Patient had acute renal failure most likely superimposed on underlying chronic kidney disease. Blood pressure was elevated and antihypertensives were titrated. Hydralazine was increased. He was placed on minoxidil prn. SARS-CoV-2 PCR was positive. Urine culture showed growth of Citrobacter. Blood culture did not isolate any growth. Psychiatric evaluation was done. Patient was assessed to lack capacity to make decisions. Heart rate went down to 50s. Digoxin and Lopressor were discontinued due to bradycardia. Repeat SARS-CoV-2 PCR done on 01/02/2020 was positive. Patient was eventually transferred to [place] to continue care. FINAL DIAGNOSES: Severe sepsis Right lower lobe pneumonia secondary to COVID-19 Acute hypoxemic respiratory failure Thrombocytopenia Acute kidney injury on chronic renal insufficiency Acute Citrobacter UTI Hypertensive urgency on admission Dyslipidemia Elevated liver transaminases History of CVA with right hemiparesis Elevated troponin due to non-ST elevated SC and renal failure Suspected congestive heart failure, diastolic Dysphagia DNR/DNI status DISPOSITION: Patient was transferred to [facility]. I have been assigned to complete a discharge summary on this account, I was not involved with the patient's management.--LIZBETH Mas Jacqueline Robles NP January 05, 2020 22:37
--- NOTE | 2020-01-07 13:58 | NUR ---
*-* INSURANCE *-* DISCHARGE SUMMARY HAS BEEN FAXED TO: [employer] (MICKEY) [phone] Work [phone] FAX [phone] FAX
== END 2020-01-03 18:48 | disposition other institution, planned readmission (95) | DRG 871 ==
LOC: EDUNIT# 20:58 → EDBD 20:58 → EMR 21:20 → EDBEDREQ 21:55 → 2E 22:04 → EDBEDREQ 23:00
DX: A41.89 Other specified sepsis (principal); I21.4 Non-ST elevation (NSTEMI) myocardial infarction; J96.01 Acute respiratory failure with hypoxia; U07.1 COVID-19; J12.89 Other viral pneumonia; N17.9 Acute kidney failure, unspecified; I69.351 Hemiplegia and hemiparesis following cerebral infarction affecting right dominant side; I13.0 Hypertensive heart and chronic kidney disease with heart failure and stage 1 through stage 4 chronic kidney disease, or unspecified chronic kidney disease; I50.30 Unspecified diastolic (congestive) heart failure; N39.0 Urinary tract infection, site not specified; R65.20 Severe sepsis without septic shock; I16.0 Hypertensive urgency; E78.5 Hyperlipidemia, unspecified; Z66 Do not resuscitate; J44.9 Chronic obstructive pulmonary disease, unspecified; D69.6 Thrombocytopenia, unspecified; N18.9 Chronic kidney disease, unspecified; R74.0 Nonspecific elevation of levels of transaminase and lactic acid dehydrogenase [LDH]; R13.10 Dysphagia, unspecified; B96.89 Other specified bacterial agents as the cause of diseases classified elsewhere; Z79.82 Long term (current) use of aspirin; I48.91 Unspecified atrial fibrillation; I27.20 Pulmonary hypertension, unspecified
CPT/HCPCS: 36415; 71045; 80048; 80053; 80061; 80162; 81003; 82248; 82550; 82607; 82728; 82746; 82977; 83036; 83540; 83550; 83605; 83615; 83690; 83735; 83880; 84100; 84300; 84443; 84484; 84550; 85025; 85379; 85610; 85730; 86140; 87040; 87081; 87086; 87181; 87635; 93005; 93306; 96361; 96365; 96367; 99285; C9399; J7030; J8499